=== PATIENT | male | born 1965 | race Caucasian/White ===

== ENCOUNTER 2017-04-10 15:07 | Inpatient (IN) | payer OTHER ==
[~2017-04-10] VITALS: Ht 195.6 cm; Wt 111.8 kg
[~2017-04-10 15:07] MED LIST: ACET-1757 PO; AMIT1TAB PO; AMLO10TA2 PO; AMLO5TAB4 PO; CHLO25CA9 PO; CLON-365 PO; CLON0.1T PO; FOLI-17 PO; GABA300C10 PO; GABA800T2 PO; HYDR-3341 PO; HYDR12.547 PO; IRBE150T25 PO; LOSA50TA2 PO; MAGN400T26 PO; MAGN400T7 PO; METO25TA35 PO; METO50TA82 PO; MULT-6 PO; OLME1TAB PO; OLME20TA PO; OLME5TAB4 PO; OMEP40CA6 PO; QUET100T4 PO; QUET25TA5 PO; SUCR1TAB26 PO; THIA100T10 PO; TRAZ100T15 PO; TRAZ150T68 PO; TRIA1TAB3 PO; ZIPR20CA2 PO
[2017-04-10] MEDS ORDERED: SODIUM CHLORIDE FLUSH 10ML SYR IVF ONE (15:30)
[2017-04-10] MEDS ORDERED: ONDANSETRON 2MG/ML, 2ML IVPush ONE (15:30)
[2017-04-10] MEDS ORDERED: SODIUM CHLORIDE 0.9% 1,000ML IVBOLUS ONE ×2 (15:30→17:30)
[2017-04-10] MEDS ORDERED: ONDANSETRON 2MG/ML, 2ML ONE (15:43)
[2017-04-10 16:00] LABS: BLOOD UREA NITROGEN 17 mg/dL (7-18)
[2017-04-10 16:03] LABS: ASPARTATE AMINO TRANSFERASE 41 U/L (15-37)
[2017-04-10] MEDS ORDERED: LORazepam 2 MG/ML, 1ML ONE ×3 (16:07→19:17)
[2017-04-10] MEDS: LORazepam 2 MG/ML, 1ML IVPush PRN ×5 (16:09→20:05)
[2017-04-10] MEDS ORDERED: CHLORDIAZEPOXIDE 25 MG CAPSULE PO ONE (16:30)
[2017-04-10] MEDS ORDERED: MAGNESIUM SULFATE 1 GM, THIAMINE 100 MG, FOLIC ACID 1 MG, MVI ADULT 10 ML in SODIUM CHL... IV ONE (19:00)
[2017-04-10] MEDS ORDERED: BISACODYL 10 MG SUPP PR PRN (19:30)
[2017-04-10] MEDS ORDERED: CHLORDIAZEPOXIDE 25 MG CAPSULE PO PRN (19:30)
[2017-04-10] MEDS ORDERED: POLYETHYLENE GLYCOL 17 GM PACKET PO PRN (19:30)
[2017-04-10] MEDS ORDERED: ONDANSETRON 2MG/ML, 2ML IVPush PRN (19:30)
[2017-04-10] MEDS ORDERED: ACETAMINOPHEN 325 MG TABLET PO PRN (19:30)
[2017-04-10 20:00] VITALS: BP 168/92
[2017-04-10] MEDS: GABAPENTIN 400 MG CAPSULE PO SCH (21:49)
[2017-04-10] MEDS: TRAZODONE 100MG TABLET PO SCH (21:49)
[2017-04-10] MEDS: OMEPRAZOLE 20 MG CAPSULE.DR PO SCH (21:49)
[2017-04-10] MEDS: HEPARIN 5,000 UNITS/ML, 1ML SQ SCH (21:49)
[2017-04-11 02:21] VITALS: BP 148/89
[2017-04-11] MEDS: SODIUM CHLORIDE 0.9% 1,000 ML IV SCH ×2 (03:56→16:34)
[2017-04-11] MEDS: HEPARIN 5,000 UNITS/ML, 1ML SQ SCH ×3 (03:56→19:47)
[2017-04-11] MEDS: LORazepam 2 MG/ML, 1ML IVPush PRN ×6 (05:39→23:03)
[2017-04-11] MEDS: GABAPENTIN 400 MG CAPSULE PO SCH ×4 (05:39→21:53)
[2017-04-11 05:58] LABS: ASPARTATE AMINO TRANSFERASE 35 U/L (15-37); BLOOD UREA NITROGEN 17 mg/dL (7-18)
[2017-04-11 07:33] VITALS: BP 153/109
[2017-04-11] MEDS: MULTIVITAMIN 1 TABLET PO SCH (08:58)
[2017-04-11] MEDS: OMEPRAZOLE 20 MG CAPSULE.DR PO SCH ×2 (08:58→17:01)
[2017-04-11] MEDS: FOLIC ACID 1 MG TABLET PO SCH (08:58)
[2017-04-11] MEDS: THIAMINE 100MG TABLET PO SCH (08:58)
[2017-04-11] MEDS: TRIAMTERENE-HCTZ 37.5/25 MG TABLET PO SCH (08:58)
[2017-04-11] MEDS: VALSARTAN 160 MG TABLET PO SCH (08:58)
[2017-04-11] MEDS: SENNA/DOCUSATE TABLET PO SCH (08:59)
[2017-04-11] MEDS ORDERED: LABETALOL 5MG/ML, 20ML IVPush PRN (10:00)
[2017-04-11 12:26] VITALS: BP 152/109
[2017-04-11] MEDS: BACLOFEN 10 MG TABLET PO SCH ×2 (16:34→21:54)
[2017-04-11 18:36] VITALS: BP 157/97
[2017-04-11] MEDS ORDERED: QUETIAPINE 25MG TABLET PO SCH (21:00)
[2017-04-11] MEDS: TRAZODONE 100MG TABLET PO SCH (21:54)
[2017-04-12] MEDS: SODIUM CHLORIDE 0.9% 1,000 ML IV SCH (01:51)
[2017-04-12 02:13] VITALS: BP 155/91
[2017-04-12] MEDS: LORazepam 2 MG/ML, 1ML IVPush PRN ×2 (03:04→06:09)
[2017-04-12] MEDS: HEPARIN 5,000 UNITS/ML, 1ML SQ SCH (03:04)
[2017-04-12] MEDS: GABAPENTIN 400 MG CAPSULE PO SCH (06:09)
[2017-04-12 08:16] VITALS: BP 161/108
[2017-04-12] MEDS: BACLOFEN 10 MG TABLET PO SCH (09:13)
[2017-04-12] MEDS: THIAMINE 100MG TABLET PO SCH (09:14)
[2017-04-12] MEDS: MULTIVITAMIN 1 TABLET PO SCH (09:14)
[2017-04-12] MEDS: TRIAMTERENE-HCTZ 37.5/25 MG TABLET PO SCH (09:14)
[2017-04-12] MEDS: FOLIC ACID 1 MG TABLET PO SCH (09:14)
[2017-04-12] MEDS: VALSARTAN 160 MG TABLET PO SCH (09:14)
[2017-04-12] MEDS: OMEPRAZOLE 20 MG CAPSULE.DR PO SCH (09:14)
[2017-04-12] MEDS: SENNA/DOCUSATE TABLET PO SCH (09:14)
== END 2017-04-12 11:45 | disposition home or self-care (01) | DRG 897 ==
LOC: ED 18:30 → EDIP 18:42 → ED 18:45 → 4WST 19:45 → DCLOUNGE 04-12 10:13
PROVIDERS: ADMIT Internal Medicine; ATTEND Internal Medicine
DX: F10.239 Alcohol dependence with withdrawal, unspecified (principal); I10 Essential (primary) hypertension; K21.9 Gastro-esophageal reflux disease without esophagitis; D75.89 Other specified diseases of blood and blood-forming organs; F32.9 Major depressive disorder, single episode, unspecified; Z63.8 Other specified problems related to primary support group; Z80.9 Family history of malignant neoplasm, unspecified; Z88.8 Allergy status to other drugs, medicaments and biological substances
CPT/HCPCS: 36415; 80053; 82607; 82746; 85025; 93005; 96361; 96374; J1644; J2405; J3411; J3475; J2060; J7030

== ENCOUNTER 2017-04-17 11:07 | Emergency (ER) | payer OTHER ==
[~2017-04-17] VITALS: Ht 190.5 cm; Wt 105.0 kg
[2017-04-17] MEDS ORDERED: THIAMINE IVPB ONE (12:30)
[2017-04-17] MEDS ORDERED: SODIUM CHLORIDE FLUSH 10ML SYR IVF ONE (12:30)
[2017-04-17] MEDS ORDERED: SODIUM CHLORIDE 0.9% IVPB ONE (12:30)
[2017-04-17] MEDS ORDERED: SODIUM CHLORIDE 0.9% 1,000ML IVBOLUS ONE (12:30)
[2017-04-17] MEDS ORDERED: FOLIC ACID 1 MG in DEXTROSE 5% 50 ML IV ONE (12:30)
[2017-04-17] MEDS ORDERED: FOLIC ACID IVPB ONE (12:30)
[2017-04-17 13:04] LABS: ASPARTATE AMINO TRANSFERASE 312 U/L (15-37); BLOOD UREA NITROGEN 28 mg/dL (7-18)
[2017-04-17 13:28] VITALS: BP 132/92
[2017-04-17] MEDS ORDERED: LORazepam 2 MG/ML, 1ML ONE (13:43)
[2017-04-17] MEDS ORDERED: LORazepam 2 MG/ML, 1ML IVPush ONE (14:00)
== END 2017-04-17 14:35 | disposition home or self-care (01) ==
LOC: ED 14:29
DX: F10.220 Alcohol dependence with intoxication, uncomplicated (principal); K21.9 Gastro-esophageal reflux disease without esophagitis; E11.9 Type 2 diabetes mellitus without complications; I10 Essential (primary) hypertension
CPT/HCPCS: 36415; 80053; 80307; 82140; 85025; 96365; 96366; 96375; 99285; J2060; J3411; J7030

== ENCOUNTER 2017-04-18 12:48 | Emergency (ER) | payer OTHER ==
[~2017-04-18] VITALS: Ht 193 cm; Wt 113.6 kg
[2017-04-18] MEDS ORDERED: SODIUM CHLORIDE FLUSH 10ML SYR IVF ONE (13:30)
[2017-04-18] MEDS ORDERED: SODIUM CHLORIDE 0.9% 1,000ML IVBOLUS ONE ×2 (13:30)
[2017-04-18] MEDS ORDERED: THIAMINE 100 MG/ML, 2ML IM ONE (13:30)
[2017-04-18] MEDS ORDERED: ONDANSETRON 2MG/ML, 2ML IVPush ONE (13:30)
[2017-04-18] MEDS ORDERED: CHLORDIAZEPOXIDE 25 MG CAPSULE PO PRN (13:30)
[2017-04-18] MEDS ORDERED: ONDANSETRON 2MG/ML, 2ML ONE (13:50)
[2017-04-18 14:09] LABS: ASPARTATE AMINO TRANSFERASE 230 U/L (15-37); BLOOD UREA NITROGEN 17 mg/dL (7-18)
[2017-04-18] MEDS ORDERED: THIAMINE 100MG TABLET ONE (14:23)
[2017-04-18] MEDS ORDERED: THIAMINE 100 MG/ML, 2ML ONE (14:29)
[2017-04-18 15:31] VITALS: BP 146/95
== END 2017-04-18 16:16 | disposition home or self-care (01) ==
LOC: ED 13:31
DX: F10.129 Alcohol abuse with intoxication, unspecified (principal); E87.6 Hypokalemia; E11.9 Type 2 diabetes mellitus without complications; K21.9 Gastro-esophageal reflux disease without esophagitis; I10 Essential (primary) hypertension
CPT/HCPCS: 36415; 80053; 80307; 85025; 96361; 96372; 96374; 99285; J2405; J3411; J7030

== ENCOUNTER 2017-04-18 21:08 | Emergency (ER) | payer OTHER ==
[~2017-04-18] VITALS: Ht 190.5 cm; Wt 105.0 kg
[2017-04-18] MEDS ORDERED: SODIUM CHLORIDE 0.9% 1,000ML IVBOLUS ONE (21:30)
[2017-04-18 23:46] VITALS: BP 118/72
== END 2017-04-19 00:27 | disposition home or self-care (01) ==
LOC: ED 23:59
DX: F10.120 Alcohol abuse with intoxication, uncomplicated (principal); K21.9 Gastro-esophageal reflux disease without esophagitis; I10 Essential (primary) hypertension
CPT/HCPCS: 96360; 99284; J7030

== ENCOUNTER 2017-06-10 14:42 | Emergency (ER) | payer OTHER ==
[~2017-06-10] VITALS: Ht 190.5 cm; Wt 102.0 kg
[2017-06-10 14:48] VITALS: BP 178/110
== END 2017-06-10 17:04 | disposition home or self-care (01) ==
LOC: ED 16:58
DX: F10.220 Alcohol dependence with intoxication, uncomplicated (principal); E11.9 Type 2 diabetes mellitus without complications; K21.9 Gastro-esophageal reflux disease without esophagitis; I10 Essential (primary) hypertension
CPT/HCPCS: 99281

== ENCOUNTER 2017-08-14 17:33 | Observation (INO) | payer OTHER ==
[~2017-08-14] VITALS: Ht 190.5 cm; Wt 102.8 kg
[~2017-08-14 17:33] MED LIST changes: -OLME1TAB PO; +OLME1TAB22 PO; -OLME20TA PO; +OLME20TA19 PO; -SUCR1TAB26 PO; +SUCR1TAB33 PO; +TRAZ150T62 PO; -TRAZ150T68 PO
[2017-08-14 17:35] VITALS: BP 164/114
[2017-08-14] MEDS ORDERED: BUSP10TA PO (18:13)
[2017-08-14] MEDS ORDERED: HYDR50TA3 PO (18:13)
[2017-08-14] MEDS ORDERED: BUPR150T8 PO (18:13)
[2017-08-14] MEDS ORDERED: QUET100T4 PO (18:13)
[2017-08-14 18:39] VITALS: BP 153/97
[2017-08-14] MEDS ORDERED: ONDANSETRON ODT 4 MG PO PRN (19:30)
[2017-08-14] MEDS ORDERED: ENALAPRILAT 1.25 MG/ML, 2ML IVPush PRN (19:30)
[2017-08-14] MEDS ORDERED: ACETAMINOPHEN 325 MG TABLET PO PRN (19:30)
[2017-08-14] MEDS ORDERED: DOCUSATE 100 MG CAPSULE PO PRN (19:30)
[2017-08-14] MEDS ORDERED: ENOXAPARIN 40 MG/0.4 ML SQ SCH (20:00)
[2017-08-14] MEDS: TEMAZEPAM 15 MG CAPSULE PO PRN ×2 (22:15→23:58)
[2017-08-15 00:41] VITALS: BP 157/95
[2017-08-15 05:18] LABS: HEMATOCRIT 42.5 % (39.2-51.8); WHITE BLOOD COUNT 8.8 x10^3/uL (3.4-10)
[2017-08-15 05:26] LABS: BLOOD UREA NITROGEN 17 mg/dL (7-18)
[2017-08-15 07:16] VITALS: BP 165/93
[2017-08-15] MEDS ORDERED: METOPROLOL TARTRATE 25 MG TABLET PO SCH (08:00)
[2017-08-15] MEDS ORDERED: IRBESARTAN 150 MG TABLET PO SCH (09:00)
[2017-08-15] MEDS ORDERED: IRBE150T49 PO (13:25)
[2017-08-15] MEDS ORDERED: METO25TA35 PO (13:25)
[2017-08-15 14:20] VITALS: BP 148/99
== END 2017-08-15 16:00 | disposition home or self-care (01) ==
LOC: INTOOBSV 17:33 → 5SO 17:33
PROVIDERS: ADMIT Hospitalist; ATTEND Family Medicine
DX: I47.2 Ventricular tachycardia (principal); I10 Essential (primary) hypertension; F10.231 Alcohol dependence with withdrawal delirium; D69.59 Other secondary thrombocytopenia; K21.9 Gastro-esophageal reflux disease without esophagitis; F33.2 Major depressive disorder, recurrent severe without psychotic features; R45.851 Suicidal ideations
CPT/HCPCS: 36415; 80048; 83735; 85025; 87324; G0378

== ENCOUNTER 2017-08-22 02:15 | Inpatient (IN) | payer OTHER ==
[~2017-08-22] VITALS: Ht 180.3 cm; Wt 104.8 kg
[~2017-08-22 02:15] MED LIST changes: +BUPR150T8 PO; +BUSP10TA PO; +HYDR50TA3 PO; +IRBE150T49 PO
[2017-08-22] MEDS ORDERED: SODIUM CHLORIDE 0.9% 1,000ML IVBOLUS ONE (02:30)
[2017-08-22] MEDS ORDERED: ACETAMINOPHEN 325 MG TABLET PO ONE (02:30)
[2017-08-22] MEDS ORDERED: ACETAMINOPHEN 500 MG TABLET ONE (02:37)
[2017-08-22 02:41] LABS: HEMATOCRIT 50.8 % (39.2-51.8); HEMOGLOBIN 17.5 g/dL (13.7-18.0); WHITE BLOOD COUNT 7.5 x10^3/uL (3.4-10)
[2017-08-22 02:51] LABS: BLOOD UREA NITROGEN 15 mg/dL (7-18)
[2017-08-22] MEDS ORDERED: LORazepam 2 MG/ML, 1ML ONE (03:53)
[2017-08-22] MEDS ORDERED: LORazepam 2 MG/ML, 1ML IVPush ONE (04:00)
[2017-08-22] MEDS ORDERED: FOLIC ACID 1 MG TABLET PO ONE (05:00)
[2017-08-22] MEDS ORDERED: THIAMINE 100 MG/ML, 2ML IM SCH (05:00)
[2017-08-22] MEDS ORDERED: THIAMINE 100 MG/ML, 2ML ONE (05:01)
[2017-08-22] MEDS ORDERED: DOCUSATE 100 MG CAPSULE PO PRN (06:00)
[2017-08-22] MEDS ORDERED: ONDANSETRON ODT 4 MG PO PRN (06:00)
[2017-08-22] MEDS ORDERED: GLUCAGON 1 MG IM PRN (06:00)
[2017-08-22] MEDS ORDERED: PROMETHAZINE 25 MG/ML, 1ML IM PRN (06:00)
[2017-08-22] MEDS ORDERED: BISACODYL 10 MG SUPP PR PRN (06:00)
[2017-08-22] MEDS ORDERED: DEXTROSE 4 GM TAB.CHEW PO PRN (06:00)
[2017-08-22] MEDS ORDERED: DEXTROSE 50%, 50ML SYRINGE IVPush PRN (06:00)
[2017-08-22] MEDS ORDERED: LORazepam 1MG TABLET PO PRN ×3 (06:00)
[2017-08-22] MEDS ORDERED: POLYETHYLENE GLYCOL 17 GM PACKET PO PRN (06:00)
[2017-08-22] MEDS ORDERED: LORazepam 0.5MG TABLET PO PRN (06:00)
[2017-08-22] MEDS ORDERED: LORazepam 2 MG/ML, 1ML IV PRN ×3 (06:00)
[2017-08-22] MEDS ORDERED: ONDANSETRON 2MG/ML, 2ML IVPush PRN (06:00)
[2017-08-22 06:15] VITALS: BP 133/90
[2017-08-22] MEDS: SODIUM CHLORIDE 0.9% 1,000 ML IV SCH ×3 (06:21→22:00)
[2017-08-22] MEDS: THIAMINE 100 MG in SODIUM CHLORIDE 0.9% 50 ML IV SCH (06:22)
[2017-08-22] MEDS: BUSPIRONE 10 MG TABLET PO SCH ×4 (06:37→19:46)
[2017-08-22] MEDS: ENOXAPARIN 40 MG/0.4 ML SQ SCH (06:38)
[2017-08-22] MEDS: CHLORDIAZEPOXIDE 25 MG CAPSULE PO SCH ×4 (06:38→19:46)
[2017-08-22] MEDS: INSULIN ASPART 100 UNITS/ML, PEN SQ-INSULIN SCH ×4 (07:00→20:34)
[2017-08-22] MEDS: LORazepam 1MG TABLET PO PRN ×4 (08:56→19:48)
[2017-08-22] MEDS: BUPROPION SR 150 MG TABLET PO SCH (08:57)
[2017-08-22] MEDS: METOPROLOL TARTRATE 25 MG TABLET PO SCH ×2 (08:57→19:46)
[2017-08-22] MEDS: IRBESARTAN 150 MG TABLET PO SCH (08:57)
[2017-08-22] MEDS: MULTIVITAMIN 1 TABLET PO SCH (08:57)
[2017-08-22] MEDS: SODIUM CHLORIDE FLUSH 10ML SYR IVF SCH ×2 (08:58→19:44)
[2017-08-22] MEDS: FOLIC ACID 1 MG TABLET PO SCH (08:58)
[2017-08-22 15:51] VITALS: BP 137/83
[2017-08-22 18:35] VITALS: BP 160/90
[2017-08-22] MEDS: QUETIAPINE 25MG TABLET PO SCH (19:45)
[2017-08-22] MEDS: FAMOTIDINE 20 MG TABLET PO SCH (19:46)
[2017-08-22] MEDS: TRAZODONE 100MG TABLET PO SCH (19:46)
[2017-08-23 01:21] VITALS: BP 169/94
[2017-08-23] MEDS: LORazepam 2 MG/ML, 1ML IV PRN ×9 (01:34→13:29)
[2017-08-23] MEDS: SODIUM CHLORIDE 0.9% 1,000 ML IV SCH (04:40)
[2017-08-23] MEDS: THIAMINE 100 MG in SODIUM CHLORIDE 0.9% 50 ML IV SCH (05:20)
[2017-08-23] MEDS: ENOXAPARIN 40 MG/0.4 ML SQ SCH (05:23)
[2017-08-23] MEDS: BUSPIRONE 10 MG TABLET PO SCH ×4 (05:23→20:09)
[2017-08-23] MEDS: LORazepam 1MG TABLET PO PRN (05:26)
[2017-08-23] MEDS ORDERED: CHLORDIAZEPOXIDE 25 MG CAPSULE PO PRN (05:30)
[2017-08-23 05:39] LABS: HEMATOCRIT 39.3 % (39.2-51.8); HEMOGLOBIN 13.7 g/dL (13.7-18.0); WHITE BLOOD COUNT 3.7 x10^3/uL (3.4-10)
[2017-08-23 06:02] LABS: ASPARTATE AMINO TRANSFERASE 35 U/L (15-37); BLOOD UREA NITROGEN 18 mg/dL (7-18)
[2017-08-23 07:31] VITALS: BP 176/109
[2017-08-23] MEDS ORDERED: hydrALAzine 20 MG/ML, 1ML IV PRN (08:00)
[2017-08-23] MEDS: FAMOTIDINE 20 MG TABLET PO SCH (08:01)
[2017-08-23] MEDS: IRBESARTAN 150 MG TABLET PO SCH (08:01)
[2017-08-23] MEDS: METOPROLOL TARTRATE 25 MG TABLET PO SCH ×2 (08:01→20:09)
[2017-08-23] MEDS: MULTIVITAMIN 1 TABLET PO SCH (08:01)
[2017-08-23] MEDS: BUPROPION SR 150 MG TABLET PO SCH (08:02)
[2017-08-23] MEDS: FOLIC ACID 1 MG TABLET PO SCH (08:03)
[2017-08-23] MEDS: SODIUM CHLORIDE FLUSH 10ML SYR IVF SCH ×2 (08:19→21:00)
[2017-08-23] MEDS ORDERED: MAGNESIUM SULFATE PMX 2GM/50ML 50 ML IV ONE (08:30)
[2017-08-23] MEDS ORDERED: POTASSIUM PHOSPHATE 22 MEQ in SODIUM CHLORIDE 0.9% 500 ML IV ONE (09:00)
[2017-08-23] MEDS: CHLORDIAZEPOXIDE 25 MG CAPSULE PO SCH ×3 (11:20→20:09)
[2017-08-23 13:30] VITALS: BP 124/105
[2017-08-23] MEDS: DIAZEPAM 5 MG/ML, 10ML VIAL IV SCH ×2 (15:56→19:38)
[2017-08-23] MEDS ORDERED: DIAZEPAM 5 MG/ML, 2ML IV SCH (16:00)
[2017-08-23] MEDS: ZIPRASIDONE 20 MG INJ IM PRN ×2 (16:01→18:08)
[2017-08-23] MEDS: GABAPENTIN 400 MG CAPSULE PO SCH ×2 (16:46→20:09)
[2017-08-23] MEDS: TRAZODONE 100MG TABLET PO SCH (20:09)
[2017-08-23] MEDS: QUETIAPINE 25MG TABLET PO SCH (20:09)
[2017-08-24 04:13] LABS: ABG COLLECTION SITE LEFT RADIAL; COLLATERAL CIRCULATION TESTING NORMAL
[2017-08-24 04:30] VITALS: BP 144/92
[2017-08-24] MEDS: DIAZEPAM 5 MG/ML, 10ML VIAL IV SCH ×2 (04:46)
[2017-08-24 04:54] LABS: ASPARTATE AMINO TRANSFERASE 41 U/L (15-37); BLOOD UREA NITROGEN 13 mg/dL (7-18)
[2017-08-24] MEDS: ENOXAPARIN 40 MG/0.4 ML SQ SCH (05:48)
[2017-08-24] MEDS: BUSPIRONE 10 MG TABLET PO SCH ×4 (05:48→20:28)
[2017-08-24] MEDS: CHLORDIAZEPOXIDE 25 MG CAPSULE PO SCH ×4 (05:48→20:28)
[2017-08-24] MEDS ORDERED: SODIUM CHLORIDE 0.9% 1,000 ML IV SCH (05:57)
[2017-08-24] MEDS: BUPROPION SR 150 MG TABLET PO SCH (09:00)
[2017-08-24] MEDS: METOPROLOL TARTRATE 25 MG TABLET PO SCH ×2 (09:35→20:29)
[2017-08-24] MEDS: FOLIC ACID 1 MG TABLET PO SCH (09:35)
[2017-08-24] MEDS: IRBESARTAN 150 MG TABLET PO SCH (09:35)
[2017-08-24] MEDS: GABAPENTIN 400 MG CAPSULE PO SCH ×3 (09:36→20:29)
[2017-08-24] MEDS: MULTIVITAMIN 1 TABLET PO SCH (09:36)
[2017-08-24] MEDS: SODIUM CHLORIDE FLUSH 10ML SYR IVF SCH ×2 (09:37→20:28)
[2017-08-24] MEDS ORDERED: DIAZEPAM 5 MG/ML, 10ML VIAL IV SCH (10:00)
[2017-08-24] MEDS ORDERED: DIAZEPAM 5 MG/ML, 10ML VIAL IV PRN (16:00)
[2017-08-24] MEDS: TRAZODONE 100MG TABLET PO SCH (20:28)
[2017-08-24] MEDS: QUETIAPINE 25MG TABLET PO SCH (20:29)
[2017-08-25 05:00] VITALS: BP 110/70
[2017-08-25] MEDS: ENOXAPARIN 40 MG/0.4 ML SQ SCH (05:16)
[2017-08-25] MEDS: BUSPIRONE 10 MG TABLET PO SCH ×4 (05:16→21:36)
[2017-08-25] MEDS: FOLIC ACID 1 MG TABLET PO SCH (07:54)
[2017-08-25] MEDS: MULTIVITAMIN 1 TABLET PO SCH (07:54)
[2017-08-25] MEDS: GABAPENTIN 400 MG CAPSULE PO SCH ×3 (07:54→21:36)
[2017-08-25] MEDS: CHLORDIAZEPOXIDE 10 MG CAPSULE PO SCH ×4 (08:00→21:36)
[2017-08-25] MEDS: POTASSIUM CHLORIDE 20 MEQ, MAGNESIUM SULFATE 1 GM, THIAMINE 100 MG, FOLIC ACID 1 MG, MV... IV SCH (08:00)
[2017-08-25] MEDS: SODIUM CHLORIDE FLUSH 10ML SYR IVF SCH ×2 (08:02→21:00)
[2017-08-25] MEDS: BUPROPION SR 150 MG TABLET PO SCH (08:03)
[2017-08-25 18:24] VITALS: BP 142/92
[2017-08-25 19:45] VITALS: BP 143/99
[2017-08-25] MEDS: QUETIAPINE 25MG TABLET PO SCH (21:37)
[2017-08-26 01:26] VITALS: BP 149/84
[2017-08-26] MEDS: BUSPIRONE 10 MG TABLET PO SCH ×4 (05:40→22:07)
[2017-08-26] MEDS: ENOXAPARIN 40 MG/0.4 ML SQ SCH (05:42)
[2017-08-26 06:59] VITALS: BP 140/90
[2017-08-26] MEDS: POTASSIUM CHLORIDE 20 MEQ, MAGNESIUM SULFATE 1 GM, THIAMINE 100 MG, FOLIC ACID 1 MG, MV... IV SCH (08:00)
[2017-08-26] MEDS: MULTIVITAMIN 1 TABLET PO SCH ×2 (09:00→09:27)
[2017-08-26] MEDS: IRBESARTAN 150 MG TABLET PO SCH ×2 (09:26→20:50)
[2017-08-26] MEDS: GABAPENTIN 400 MG CAPSULE PO SCH ×3 (09:27→22:07)
[2017-08-26] MEDS: THIAMINE 100MG TABLET PO SCH (09:27)
[2017-08-26] MEDS: METOPROLOL TARTRATE 25 MG TABLET PO SCH ×2 (09:27→18:02)
[2017-08-26] MEDS: FOLIC ACID 1 MG TABLET PO SCH (09:28)
[2017-08-26] MEDS: SODIUM CHLORIDE FLUSH 10ML SYR IVF SCH ×2 (09:28→22:11)
[2017-08-26] MEDS: BUPROPION SR 150 MG TABLET PO SCH (09:29)
[2017-08-26 09:56] VITALS: BP 137/74
[2017-08-26 14:20] VITALS: BP 145/95
[2017-08-26] MEDS: OMEPRAZOLE 20 MG CAPSULE.DR PO SCH (19:39)
[2017-08-26 20:16] VITALS: BP 167/100
[2017-08-26] MEDS ORDERED: MAGNESIUM HYDROXIDE 8%, 30ML UDC PO PRN (21:00)
[2017-08-26] MEDS: QUETIAPINE 25MG TABLET PO SCH (22:07)
[2017-08-27 04:08] VITALS: BP 168/102
[2017-08-27] MEDS: BUSPIRONE 10 MG TABLET PO SCH ×2 (06:47→10:42)
[2017-08-27] MEDS: METOPROLOL TARTRATE 25 MG TABLET PO SCH (06:47)
[2017-08-27] MEDS: ENOXAPARIN 40 MG/0.4 ML SQ SCH (06:49)
[2017-08-27 07:00] VITALS: BP 146/96
[2017-08-27] MEDS: OMEPRAZOLE 20 MG CAPSULE.DR PO SCH (08:48)
[2017-08-27] MEDS: THIAMINE 100MG TABLET PO SCH (08:49)
[2017-08-27] MEDS: MULTIVITAMIN 1 TABLET PO SCH ×2 (08:49)
[2017-08-27] MEDS: IRBESARTAN 150 MG TABLET PO SCH (08:49)
[2017-08-27] MEDS: FOLIC ACID 1 MG TABLET PO SCH (08:49)
[2017-08-27] MEDS: GABAPENTIN 400 MG CAPSULE PO SCH (08:49)
[2017-08-27] MEDS: BUPROPION SR 150 MG TABLET PO SCH (08:49)
[2017-08-27] MEDS: SODIUM CHLORIDE FLUSH 10ML SYR IVF SCH (09:00)
[2017-08-27] MEDS ORDERED: METO25TA35 PO (09:33)
[2017-08-27 13:11] VITALS: BP 138/90
== END 2017-08-27 16:29 | disposition home or self-care (01) | DRG 896 ==
LOC: ED 02:45 → EDIP 04:48 → 4WST 05:33 → CCU 08-23 14:49 → 4NOR 08-25 11:28 → DCLOUNGE 08-27 16:21
PROVIDERS: ADMIT Internal Medicine; ATTEND Internal Medicine
DX: F10.231 Alcohol dependence with withdrawal delirium (principal); R40.20 Unspecified coma; S06.0X9A Concussion with loss of consciousness of unspecified duration, initial encounter; I50.9 Heart failure, unspecified; I11.0 Hypertensive heart disease with heart failure; R56.9 Unspecified convulsions; W01.0XXA Fall on same level from slipping, tripping and stumbling without subsequent striking against object, initial encounter; F10.229 Alcohol dependence with intoxication, unspecified; Y90.9 Presence of alcohol in blood, level not specified; F32.9 Major depressive disorder, single episode, unspecified; F41.9 Anxiety disorder, unspecified; K21.9 Gastro-esophageal reflux disease without esophagitis; Y92.000 Kitchen of unspecified non-institutional (private) residence as the place of occurrence of the external cause; Z79.899 Other long term (current) drug therapy; Z86.79 Personal history of other diseases of the circulatory system; Z88.4 Allergy status to anesthetic agent
CPT/HCPCS: 36415; 36600; 70450; 72125; 80048; 80053; 80307; 82140; 82803; 82962; 83735; 84100; 85025; 87081; 96374; J1650; J2405; J3360; J3411; J3475; J3480; J3486; G0479; J2060; J7030; J7040

== ENCOUNTER 2017-09-26 16:11 | Inpatient (IN) | payer OTHER ==
[~2017-09-26] VITALS: Ht 190.5 cm; Wt 110.7 kg
[~2017-09-26 16:11] MED LIST changes: +HYDR25TA6 PO
[2017-09-26] MEDS ORDERED: LORazepam 2 MG/ML, 1ML ONE ×3 (16:37→19:34)
[2017-09-26] MEDS ORDERED: PANTOPRAZOLE 80 MG in SODIUM CHLORIDE 0.9% 50 ML IVPB ONE (16:40)
[2017-09-26] MEDS ORDERED: SODIUM CHLORIDE 0.9% 1,000 ML IV ONE (16:40)
[2017-09-26] MEDS ORDERED: PANTOPRAZOLE 80 MG in SODIUM CHLORIDE 0.9% 100 ML IV SCH (16:40)
[2017-09-26] MEDS: LORazepam 2 MG/ML, 1ML IVPush PRN ×3 (16:48→19:37)
[2017-09-26] MEDS ORDERED: THIAMINE 100 MG in DEXTROSE 5% 50 ML IVPB ONE (17:00)
[2017-09-26] MEDS ORDERED: ONDANSETRON 2MG/ML, 2ML IVPush ONE (17:00)
[2017-09-26] MEDS ORDERED: SODIUM CHLORIDE 0.9% 1,000ML IVBOLUS ONE (17:00)
[2017-09-26] MEDS ORDERED: THIAMINE 100 MG in SODIUM CHLORIDE 0.9% 50 ML IVPB ONE (17:00)
[2017-09-26] MEDS ORDERED: SODIUM CHLORIDE FLUSH 10ML SYR IVF ONE (17:00)
[2017-09-26 17:25] LABS: HEMATOCRIT 46.5 % (39.2-51.8); WHITE BLOOD COUNT 7.6 x10^3/uL (3.4-10)
[2017-09-26 17:41] LABS: ASPARTATE AMINO TRANSFERASE 133 U/L (15-37); BLOOD UREA NITROGEN 14 mg/dL (7-18)
[2017-09-26] MEDS ORDERED: POTASSIUM CHLORIDE 20 MEQ, MVI ADULT 10 ML, FOLIC ACID 1 MG, MAGNESIUM SULFATE 2 GM in ... IV SCH (18:20)
[2017-09-26] MEDS ORDERED: PROMETHAZINE 12.5 MG SUPP PR PRN (18:30)
[2017-09-26] MEDS ORDERED: LORazepam 2 MG/ML, 1ML IV PRN (18:30)
[2017-09-26] MEDS ORDERED: LABETALOL 5MG/ML, 20ML IV PRN (18:30)
[2017-09-26] MEDS ORDERED: ONDANSETRON 2MG/ML, 2ML IV PRN (18:30)
[2017-09-26] MEDS ORDERED: ONDANSETRON 2MG/ML, 2ML ONE (19:33)
[2017-09-26 20:45] VITALS: BP 179/95
[2017-09-26] MEDS: INSULIN ASPART 100 UNITS/ML, PEN SQ-INSULIN SCH (21:00)
[2017-09-26] MEDS ORDERED: DIAZEPAM 5 MG/ML, 10ML VIAL IV ONE (21:00)
[2017-09-26] MEDS ORDERED: DIAZEPAM 5 MG/ML, 2ML IV ONE (21:00)
[2017-09-26] MEDS: PANTOPRAZOLE 80 MG in SODIUM CHLORIDE 0.9% 100 ML IV SCH (21:43)
[2017-09-26] MEDS: LORazepam 2 MG/ML, 1ML IV PRN (22:26)
[2017-09-26] MEDS: POTASSIUM CHLORIDE 20 MEQ, MVI ADULT 10 ML, FOLIC ACID 1 MG, MAGNESIUM SULFATE 2 GM in ... IV SCH (22:43)
[2017-09-26 22:55] LABS: HEMATOCRIT 41.5 % (39.2-51.8); HEMOGLOBIN 14.5 g/dL (13.7-18.0)
[2017-09-27] MEDS: LORazepam 2 MG/ML, 1ML IV PRN ×15 (00:06→22:33)
[2017-09-27 01:04] VITALS: BP 179/95
[2017-09-27 01:41] VITALS: BP 152/79
[2017-09-27 06:22] LABS: HEMATOCRIT 37.4 % (39.2-51.8); HEMOGLOBIN 13.1 g/dL (13.7-18.0); WHITE BLOOD COUNT 4.3 x10^3/uL (3.4-10)
[2017-09-27] MEDS: INSULIN ASPART 100 UNITS/ML, PEN SQ-INSULIN SCH ×4 (07:00→20:43)
[2017-09-27 07:19] LABS: ASPARTATE AMINO TRANSFERASE 95 U/L (15-37); BLOOD UREA NITROGEN 18 mg/dL (7-18)
[2017-09-27 08:11] VITALS: BP 154/100
[2017-09-27] MEDS: BACLOFEN 10 MG TABLET PO SCH ×2 (09:00→11:34)
[2017-09-27] MEDS: CHLORDIAZEPOXIDE 25 MG CAPSULE PO PRN (11:34)
[2017-09-27 12:33] VITALS: BP 185/92
[2017-09-27] MEDS: VALPROIC ACID 250 MG CAPSULE PO SCH ×3 (13:04→20:17)
[2017-09-27] MEDS: GABAPENTIN 400 MG CAPSULE PO SCH ×3 (13:04→20:17)
[2017-09-27] MEDS: PANTOPRAZOLE 80 MG in SODIUM CHLORIDE 0.9% 100 ML IV SCH (13:04)
[2017-09-27 14:09] VITALS: BP 168/98
[2017-09-27 20:28] VITALS: BP 168/100
[2017-09-27] MEDS: POTASSIUM CHLORIDE 20 MEQ, MVI ADULT 10 ML, FOLIC ACID 1 MG, MAGNESIUM SULFATE 2 GM in ... IV SCH (21:46)
[2017-09-28] MEDS: LORazepam 2 MG/ML, 1ML IV PRN ×7 (01:08→23:23)
[2017-09-28 01:45] VITALS: BP 154/98
[2017-09-28] MEDS: CHLORDIAZEPOXIDE 25 MG CAPSULE PO PRN ×4 (02:41→20:54)
[2017-09-28] MEDS: ALUMINUM/MAG/SIMETHICONE 30 ML UDC PO PRN ×2 (02:46→06:46)
[2017-09-28] MEDS: PANTOPRAZOLE 80 MG in SODIUM CHLORIDE 0.9% 100 ML IV SCH (02:58)
[2017-09-28 05:37] LABS: BLOOD UREA NITROGEN 18 mg/dL (7-18)
[2017-09-28] MEDS: INSULIN ASPART 100 UNITS/ML, PEN SQ-INSULIN SCH ×4 (07:00→20:55)
[2017-09-28 08:02] VITALS: BP 156/96
[2017-09-28] MEDS: VALPROIC ACID 250 MG CAPSULE PO SCH ×3 (08:48→20:54)
[2017-09-28] MEDS: GABAPENTIN 400 MG CAPSULE PO SCH ×3 (08:48→20:54)
[2017-09-28 09:58] LABS: BLOOD UREA NITROGEN 16 mg/dL (7-18)
[2017-09-28 10:01] LABS: ASPARTATE AMINO TRANSFERASE 68 U/L (15-37)
[2017-09-28] MEDS ORDERED: LABETALOL 5MG/ML, 20ML IV PRN (10:30)
[2017-09-28 12:42] VITALS: BP 175/102
[2017-09-28 13:28] VITALS: BP 164/97
[2017-09-28] MEDS ORDERED: ASA/APAP/ CAFFEINE TABLET PO PRN (16:30)
[2017-09-28 18:49] VITALS: BP 159/85
[2017-09-29 01:50] VITALS: BP 173/109
[2017-09-29] MEDS: CHLORDIAZEPOXIDE 25 MG CAPSULE PO PRN ×2 (02:27→08:19)
[2017-09-29] MEDS: LORazepam 2 MG/ML, 1ML IV PRN ×6 (04:39→14:11)
[2017-09-29 05:44] LABS: BLOOD UREA NITROGEN 16 mg/dL (7-18)
[2017-09-29 05:48] LABS: ASPARTATE AMINO TRANSFERASE 73 U/L (15-37)
[2017-09-29] MEDS: INSULIN ASPART 100 UNITS/ML, PEN SQ-INSULIN SCH ×2 (07:00→11:00)
[2017-09-29 08:03] VITALS: BP 178/100
[2017-09-29] MEDS: VALPROIC ACID 250 MG CAPSULE PO SCH (08:19)
[2017-09-29] MEDS: GABAPENTIN 400 MG CAPSULE PO SCH (08:19)
[2017-09-29] MEDS ORDERED: LORazepam 0.5MG TABLET PO PRN (13:00)
[2017-09-29] MEDS ORDERED: LORazepam 1MG TABLET PO PRN ×4 (13:00)
[2017-09-29 14:30] VITALS: BP 165/98
[2017-09-30] MEDS ORDERED: THIAMINE 100MG TABLET PO SCH (09:00)
[2017-09-30] MEDS ORDERED: FOLIC ACID 1 MG TABLET PO SCH (09:00)
[2017-09-30] MEDS ORDERED: MULTIVITAMIN 1 TABLET PO SCH (09:00)
== END 2017-09-29 15:30 | disposition left against medical advice (07) | DRG 392 ==
LOC: ED 18:20 → 4WST 18:21 → ED 19:07
PROVIDERS: ADMIT Hospitalist; ATTEND Hospitalist
DX: K29.20 Alcoholic gastritis without bleeding (principal); E11.40 Type 2 diabetes mellitus with diabetic neuropathy, unspecified; E87.2 Acidosis; F33.2 Major depressive disorder, recurrent severe without psychotic features; F10.239 Alcohol dependence with withdrawal, unspecified; K70.10 Alcoholic hepatitis without ascites; K21.9 Gastro-esophageal reflux disease without esophagitis; E87.6 Hypokalemia; R33.9 Retention of urine, unspecified; I10 Essential (primary) hypertension; Z53.21 Procedure and treatment not carried out due to patient leaving prior to being seen by health care provider; R15.9 Full incontinence of feces; R45.6 Violent behavior; R74.0 Nonspecific elevation of levels of transaminase and lactic acid dehydrogenase [LDH]; Z86.79 Personal history of other diseases of the circulatory system; Z91.5 Personal history of self-harm; Z88.4 Allergy status to anesthetic agent; Z79.899 Other long term (current) drug therapy; Z79.84 Long term (current) use of oral hypoglycemic drugs
CPT/HCPCS: 36415; 71010; 80048; 80053; 81001; 82040; 82962; 83605; 83690; 83735; 84100; 85014; 85018; 85025; 85610; 85730; 86850; 86900; 87086; 93005; J2405; J3360; J3411; J3475; J3480; J7042; C9113; J2060; J7030

== ENCOUNTER 2017-10-02 15:54 | Inpatient (IN) | payer OTHER ==
[~2017-10-02] VITALS: Ht 190.5 cm; Wt 102.5 kg
[2017-10-02] MEDS ORDERED: SODIUM CHLORIDE 0.9% 1,000ML IVBOLUS ONE (16:30)
[2017-10-02] MEDS ORDERED: DIPH,PERTUSS(ACELL),TET VAC/PF 0.5 ML IM-VACC ONE ×2 (16:30→18:05)
[2017-10-02] MEDS ORDERED: SODIUM CHLORIDE FLUSH 10ML SYR IVF ONE (16:30)
[2017-10-02] MEDS ORDERED: CHLORDIAZEPOXIDE 25 MG CAPSULE PO PRN ×3 (16:30→20:00)
[2017-10-02 16:46] LABS: HEMATOCRIT 41.2 % (39.2-51.8); HEMOGLOBIN 14.2 g/dL (13.7-18.0); WHITE BLOOD COUNT 6.6 x10^3/uL (3.4-10)
[2017-10-02 16:50] LABS: ASPARTATE AMINO TRANSFERASE 335 U/L (15-37); BLOOD UREA NITROGEN 15 mg/dL (7-18)
[2017-10-02] MEDS ORDERED: BACITRACIN ZINC OINT 500U/GM, 0.9 GM ONE (17:56)
[2017-10-02] MEDS ORDERED: LORazepam 2 MG/ML, 1ML ONE ×2 (17:56→18:27)
[2017-10-02] MEDS ORDERED: LORazepam 2 MG/ML, 1ML IVPush ONE ×2 (18:00→19:30)
[2017-10-02] MEDS ORDERED: ONDANSETRON 2MG/ML, 2ML ONE (19:09)
[2017-10-02] MEDS ORDERED: MAALOX/HYOSCYAMINE/LIDOCAINE 45 ML BTL ONE (19:09)
[2017-10-02] MEDS ORDERED: FAMOTIDINE 20 MG/2 ML ONE (19:09)
[2017-10-02] MEDS ORDERED: ONDANSETRON 2MG/ML, 2ML IVPush ONE (19:30)
[2017-10-02] MEDS ORDERED: FAMOTIDINE 20 MG/2 ML IVPush ONE (19:30)
[2017-10-02] MEDS ORDERED: MAALOX/HYOSCYAMINE/LIDOCAINE 45 ML BTL PO ONE (19:30)
[2017-10-02] MEDS ORDERED: DOCUSATE 100 MG CAPSULE PO PRN (20:00)
[2017-10-02] MEDS ORDERED: CHLORDIAZEPOXIDE 10 MG CAPSULE PO PRN (20:00)
[2017-10-02] MEDS ORDERED: ALUMINUM/MAG/SIMETHICONE 30 ML UDC PO PRN (20:00)
[2017-10-02] MEDS ORDERED: DIPHENHYDRAMINE 50 MG CAPSULE PO PRN (20:00)
[2017-10-02] MEDS ORDERED: POTASSIUM CHLORIDE 20 MEQ TAB.ER.PRT PO ONE (21:00)
[2017-10-02] MEDS: INSULIN ASPART 100 UNITS/ML, PEN SQ-INSULIN SCH (21:00)
[2017-10-02] MEDS ORDERED: BACLOFEN 10 MG TABLET PO SCH (21:00)
[2017-10-02] MEDS ORDERED: DIAZEPAM 5 MG/ML, 2ML IV ONE (21:11)
[2017-10-02 22:21] VITALS: BP 131/77
[2017-10-02 22:22] VITALS: BP 131/77
[2017-10-02] MEDS: ENOXAPARIN 40 MG/0.4 ML SQ SCH (23:12)
[2017-10-02] MEDS: METOPROLOL TARTRATE 25 MG TABLET PO SCH (23:13)
[2017-10-02] MEDS: MAGNESIUM CHLORIDE 64 MG TABLET.DR PO SCH (23:37)
[2017-10-03 02:00] VITALS: BP 128/77
[2017-10-03] MEDS: CHLORDIAZEPOXIDE 25 MG CAPSULE PO PRN ×2 (02:01→06:13)
[2017-10-03 05:39] LABS: HEMATOCRIT 35.7 % (39.2-51.8); HEMOGLOBIN 12.5 g/dL (13.7-18.0); WHITE BLOOD COUNT 5.1 x10^3/uL (3.4-10)
[2017-10-03 05:41] LABS: ASPARTATE AMINO TRANSFERASE 268 U/L (15-37); BLOOD UREA NITROGEN 17 mg/dL (7-18)
[2017-10-03 06:00] LABS: DIFF TOTAL CELLS COUNTED 100 CELL DIFF
[2017-10-03 06:08] LABS: VERIFY COUNTS? YES
[2017-10-03 06:09] LABS: ANISOCYTOSIS 1+
[2017-10-03 06:11] LABS: POLYCHROMASIA 1+
[2017-10-03] MEDS: GABAPENTIN 400 MG CAPSULE PO SCH ×4 (06:13→21:24)
[2017-10-03] MEDS: INSULIN ASPART 100 UNITS/ML, PEN SQ-INSULIN SCH ×4 (07:00→21:25)
[2017-10-03] MEDS ORDERED: LORazepam 1MG TABLET PO PRN ×3 (07:00)
[2017-10-03] MEDS ORDERED: LORazepam 2 MG/ML, 1ML IV PRN ×5 (07:00)
[2017-10-03 07:58] VITALS: BP 161/96
[2017-10-03] MEDS: FOLIC ACID 1 MG TABLET PO SCH (09:45)
[2017-10-03] MEDS: HYDROCHLOROTHIAZIDE 25 MG TABLET PO SCH (09:45)
[2017-10-03] MEDS: MULTIVITAMINS/MINERALS TABLET PO SCH (09:46)
[2017-10-03] MEDS: MAGNESIUM CHLORIDE 64 MG TABLET.DR PO SCH ×3 (09:46→21:24)
[2017-10-03] MEDS: METOPROLOL TARTRATE 25 MG TABLET PO SCH ×2 (09:46→21:24)
[2017-10-03] MEDS: OMEPRAZOLE 20 MG CAPSULE.DR PO SCH ×2 (09:47→21:24)
[2017-10-03] MEDS: POTASSIUM CHLORIDE 20 MEQ, MAGNESIUM SULFATE 1 GM, FOLIC ACID 1 MG, THIAMINE 100 MG, MV... IV SCH (12:05)
[2017-10-03 13:03] VITALS: BP 138/86
[2017-10-03] MEDS: LORazepam 0.5MG TABLET PO PRN ×2 (17:32→21:43)
[2017-10-03 18:38] VITALS: BP 145/97
[2017-10-03] MEDS: ENOXAPARIN 40 MG/0.4 ML SQ SCH (21:24)
[2017-10-03] MEDS: TRAZODONE 100MG TABLET PO SCH (21:24)
[2017-10-04 02:25] VITALS: BP_SYST 140; BP_SYST 150; BP_DIAS 104; BP_DIAS 98
[2017-10-04] MEDS: GABAPENTIN 400 MG CAPSULE PO SCH ×4 (05:09→20:22)
[2017-10-04 06:01] LABS: HEMATOCRIT 37.7 % (39.2-51.8); HEMOGLOBIN 13.2 g/dL (13.7-18.0); WHITE BLOOD COUNT 4.7 x10^3/uL (3.4-10)
[2017-10-04 06:07] LABS: BLOOD UREA NITROGEN 10 mg/dL (7-18)
[2017-10-04 06:11] LABS: ASPARTATE AMINO TRANSFERASE 177 U/L (15-37)
[2017-10-04 06:39] LABS: DIFF TOTAL CELLS COUNTED 100 CELL DIFF
[2017-10-04 06:44] LABS: ANISOCYTOSIS 1+; POLYCHROMASIA 1+
[2017-10-04 06:45] LABS: VERIFY COUNTS? YES
[2017-10-04 07:56] VITALS: BP 143/93
[2017-10-04] MEDS: INSULIN ASPART 100 UNITS/ML, PEN SQ-INSULIN SCH ×4 (08:29→20:53)
[2017-10-04] MEDS: LORazepam 1MG TABLET PO PRN ×3 (08:44→20:38)
[2017-10-04] MEDS: HYDROCHLOROTHIAZIDE 25 MG TABLET PO SCH (08:44)
[2017-10-04] MEDS: OMEPRAZOLE 20 MG CAPSULE.DR PO SCH ×2 (08:44→20:22)
[2017-10-04] MEDS: FOLIC ACID 1 MG TABLET PO SCH (08:44)
[2017-10-04] MEDS: MAGNESIUM CHLORIDE 64 MG TABLET.DR PO SCH ×3 (08:44→20:38)
[2017-10-04] MEDS: METOPROLOL TARTRATE 25 MG TABLET PO SCH ×2 (08:44→20:23)
[2017-10-04] MEDS: MULTIVITAMINS/MINERALS TABLET PO SCH (08:44)
[2017-10-04] MEDS: POTASSIUM CHLORIDE 20 MEQ, MAGNESIUM SULFATE 1 GM, FOLIC ACID 1 MG, THIAMINE 100 MG, MV... IV SCH (10:42)
[2017-10-04] MEDS ORDERED: POTASSIUM CHLORIDE 20 MEQ TAB.ER.PRT PO ONE (11:00)
[2017-10-04 14:36] VITALS: BP 142/98
[2017-10-04 17:21] LABS: DAU SCREEN DISCLAIMER
[2017-10-04 19:23] VITALS: BP 156/93
[2017-10-04] MEDS: TRAZODONE 100MG TABLET PO SCH (20:22)
[2017-10-04] MEDS: ENOXAPARIN 40 MG/0.4 ML SQ SCH (20:38)
[2017-10-05 01:44] VITALS: BP 150/98
[2017-10-05] MEDS: LORazepam 1MG TABLET PO PRN ×3 (01:50→17:50)
[2017-10-05 05:36] LABS: ASPARTATE AMINO TRANSFERASE 188 U/L (15-37); BLOOD UREA NITROGEN 7 mg/dL (7-18)
[2017-10-05] MEDS: GABAPENTIN 400 MG CAPSULE PO SCH ×4 (06:26→21:03)
[2017-10-05] MEDS: LORazepam 0.5MG TABLET PO PRN ×2 (06:26→21:04)
[2017-10-05] MEDS: INSULIN ASPART 100 UNITS/ML, PEN SQ-INSULIN SCH ×4 (07:00→21:15)
[2017-10-05 07:19] LABS: HEMATOCRIT 37.3 % (39.2-51.8); WHITE BLOOD COUNT 4.1 x10^3/uL (3.4-10)
[2017-10-05 07:21] LABS: DIFF TOTAL CELLS COUNTED 100 CELL DIFF
[2017-10-05 07:28] LABS: ANISOCYTOSIS 1+; POLYCHROMASIA 1+; VERIFY COUNTS? YES
[2017-10-05] MEDS: FOLIC ACID 1 MG TABLET PO SCH ×2 (09:30→09:45)
[2017-10-05] MEDS: HYDROCHLOROTHIAZIDE 25 MG TABLET PO SCH (09:45)
[2017-10-05] MEDS: METOPROLOL TARTRATE 25 MG TABLET PO SCH ×2 (09:45→21:03)
[2017-10-05] MEDS: OMEPRAZOLE 20 MG CAPSULE.DR PO SCH ×2 (09:45→21:04)
[2017-10-05] MEDS: MULTIVITAMINS/MINERALS TABLET PO SCH (09:45)
[2017-10-05] MEDS: MAGNESIUM CHLORIDE 64 MG TABLET.DR PO SCH ×2 (09:45→17:50)
[2017-10-05] MEDS: THIAMINE 100MG TABLET PO SCH (09:46)
[2017-10-05 10:40] VITALS: BP 135/90
[2017-10-05 17:30] VITALS: BP 138/78
[2017-10-05 20:00] VITALS: BP 137/94
[2017-10-05] MEDS: ENOXAPARIN 40 MG/0.4 ML SQ SCH (21:02)
[2017-10-05] MEDS: TRAZODONE 100MG TABLET PO SCH (21:04)
[2017-10-06] MEDS: LORazepam 1MG TABLET PO PRN (00:56)
[2017-10-06 03:07] VITALS: BP 154/95
[2017-10-06] MEDS: LORazepam 0.5MG TABLET PO PRN ×2 (05:43→20:14)
[2017-10-06] MEDS: GABAPENTIN 400 MG CAPSULE PO SCH ×4 (05:43→20:18)
[2017-10-06 06:09] LABS: BLOOD UREA NITROGEN 10 mg/dL (7-18)
[2017-10-06] MEDS: INSULIN ASPART 100 UNITS/ML, PEN SQ-INSULIN SCH ×4 (07:00→20:16)
[2017-10-06 07:33] VITALS: BP 168/101
[2017-10-06] MEDS: FOLIC ACID 1 MG TABLET PO SCH ×2 (07:58→07:59)
[2017-10-06] MEDS: HYDROCHLOROTHIAZIDE 25 MG TABLET PO SCH (07:59)
[2017-10-06] MEDS: METOPROLOL TARTRATE 25 MG TABLET PO SCH ×2 (08:00→20:17)
[2017-10-06] MEDS: OMEPRAZOLE 20 MG CAPSULE.DR PO SCH ×2 (08:00→20:18)
[2017-10-06] MEDS: MULTIVITAMINS/MINERALS TABLET PO SCH (08:00)
[2017-10-06] MEDS: THIAMINE 100MG TABLET PO SCH (08:05)
[2017-10-06 13:46] VITALS: BP 154/109
[2017-10-06 19:18] VITALS: BP 142/103
[2017-10-06 19:56] VITALS: BP 148/97
[2017-10-06] MEDS: ENOXAPARIN 40 MG/0.4 ML SQ SCH (20:17)
[2017-10-06] MEDS: TRAZODONE 100MG TABLET PO SCH (20:17)
[2017-10-07] MEDS: OXYcodone IR 5MG TABLET PO PRN ×2 (01:22→08:51)
[2017-10-07 02:03] VITALS: BP 153/98
[2017-10-07] MEDS: GABAPENTIN 400 MG CAPSULE PO SCH (05:47)
[2017-10-07] MEDS: INSULIN ASPART 100 UNITS/ML, PEN SQ-INSULIN SCH (07:00)
[2017-10-07] MEDS ORDERED: GADOBUTROL 10 MMOL/10 ML PFS ONE (07:39)
[2017-10-07] MEDS ORDERED: CYCLOBENZAPRINE 10 MG TABLET PO PRN (08:00)
[2017-10-07 08:35] VITALS: BP 128/90
[2017-10-07] MEDS: THIAMINE 100MG TABLET PO SCH (08:51)
[2017-10-07] MEDS: OMEPRAZOLE 20 MG CAPSULE.DR PO SCH (08:52)
[2017-10-07] MEDS: MULTIVITAMINS/MINERALS TABLET PO SCH (08:52)
[2017-10-07] MEDS: METOPROLOL TARTRATE 25 MG TABLET PO SCH (08:53)
[2017-10-07] MEDS: HYDROCHLOROTHIAZIDE 25 MG TABLET PO SCH (08:53)
[2017-10-07] MEDS: FOLIC ACID 1 MG TABLET PO SCH ×2 (08:53)
[2017-10-07] MEDS ORDERED: GABAPENTIN 400 MG CAPSULE PO SCH (09:00)
[2017-10-07] MEDS: LORazepam 0.5MG TABLET PO PRN (09:52)
[2017-10-07 13:48] VITALS: BP 139/94
[2017-10-07] MEDS ORDERED: FOLI-17 PO (14:15)
[2017-10-07] MEDS ORDERED: THIA100T6 PO (14:15)
[2017-10-07] MEDS ORDERED: CYCL-259 PO (14:15)
[2017-10-07] MEDS ORDERED: PRED20TA PO (15:10)
== END 2017-10-07 17:00 | DRG 896 ==
LOC: ED 16:21 → EDIP 19:47 → 4WST 22:58
PROVIDERS: ADMIT Internal Medicine; ATTEND Internal Medicine
DX: F10.239 Alcohol dependence with withdrawal, unspecified (principal); G93.40 Encephalopathy, unspecified; D69.59 Other secondary thrombocytopenia; E11.21 Type 2 diabetes mellitus with diabetic nephropathy; E11.40 Type 2 diabetes mellitus with diabetic neuropathy, unspecified; G62.1 Alcoholic polyneuropathy; W18.30XA Fall on same level, unspecified, initial encounter; Z23 Encounter for immunization; E87.6 Hypokalemia; I10 Essential (primary) hypertension; K21.9 Gastro-esophageal reflux disease without esophagitis; K74.60 Unspecified cirrhosis of liver; K76.0 Fatty (change of) liver, not elsewhere classified; K80.20 Calculus of gallbladder without cholecystitis without obstruction; M47.812 Spondylosis without myelopathy or radiculopathy, cervical region; S00.81XA Abrasion of other part of head, initial encounter; S62.331A Displaced fracture of neck of second metacarpal bone, left hand, initial encounter for closed fracture; S92.322A Displaced fracture of second metatarsal bone, left foot, initial encounter for closed fracture; Y90.6 Blood alcohol level of 120-199 mg/100 ml; Z86.79 Personal history of other diseases of the circulatory system; Z91.5 Personal history of self-harm; Y92.009 Unspecified place in unspecified non-institutional (private) residence as the place of occurrence of the external cause
CPT/HCPCS: 36415; 70450; 72125; 72156; 76700; 80048; 80053; 80307; 82040; 82140; 82607; 82746; 82962; 83735; 84100; 84439; 84443; 85025; 90715; 93005; A9585; J1650; J1815; J2405; J3360; J3411; J3475; J3480; J7042; G0479; J2060; J7030; S0028

== ENCOUNTER 2017-10-22 16:22 | Emergency (ER) | payer OTHER ==
[~2017-10-22] VITALS: Ht 190.5 cm; Wt 97.7 kg
[~2017-10-22 16:22] MED LIST changes: +CYCL-259 PO; +PRED20TA PO; +THIA100T6 PO
[2017-10-22 16:58] VITALS: BP 108/78
[2017-10-22] MEDS ORDERED: LORazepam 1MG TABLET ONE (19:12)
[2017-10-22] MEDS ORDERED: IBUPROFEN 200 MG TABLET ONE (19:12)
[2017-10-22] MEDS ORDERED: LORazepam 1MG TABLET PO ONE (19:30)
[2017-10-22] MEDS ORDERED: IBUPROFEN 200 MG TABLET PO ONE (19:30)
== END 2017-10-22 19:47 | disposition home or self-care (01) ==
LOC: ED 19:15
DX: M25.521 Pain in right elbow (principal); R20.2 Paresthesia of skin; I10 Essential (primary) hypertension; K21.9 Gastro-esophageal reflux disease without esophagitis; E11.42 Type 2 diabetes mellitus with diabetic polyneuropathy
CPT/HCPCS: 82962; 99283

== ENCOUNTER 2017-12-16 23:00 | Inpatient (IN) | payer OTHER ==
[~2017-12-16] VITALS: Ht 190.5 cm; Wt 101.0 kg
[2017-12-16] MEDS ORDERED: LORazepam 2 MG/ML, 1ML ONE (23:24)
[2017-12-16] MEDS ORDERED: LORazepam 2 MG/ML, 1ML IVPush ONE (23:30)
[2017-12-16] MEDS ORDERED: SODIUM CHLORIDE 0.9% 1,000ML IVBOLUS ONE (23:30)
[2017-12-16 23:58] LABS: ALBUMIN 3.9 g/dL (3.4-5.0); ANION GAP 23 mmol/L (5-15); CALCIUM 8.4 mg/dL (8.5-10.1); CHLORIDE 100 mmol/L (98-107)
[2017-12-17 00:05] LABS: ALANINE AMINOTRANSFERASE 95 U/L (12-78); ALKALINE PHOSPHATASE 63 U/L (45-117); BILIRUBIN,TOTAL 0.7 mg/dL (0.2-1.0); CREATININE 1.92 mg/dL (0.7-1.3); TOTAL PROTEIN 7.9 g/dL (6.4-8.2); TROPONIN I 0.033 ng/mL (0.000-0.045)
[2017-12-17 00:07] LABS: MEAN CORPUSCULAR HEMOGLOBIN 34.5 pg (27.5-34.5); MEAN CORPUSCULAR HGB CONC 34.7 g/dL (33.2-36.2); MEAN CORPUSCULAR VOLUME 99.5 fL (81-97); MEAN PLATELET VOLUME 8.2 fL (7.4-10.4); PLATELET COUNT 277 x10^3/uL (130-400); RED BLOOD COUNT 5.07 x10^6/uL (4.38-5.82); RED CELL DISTRIBUTION WIDTH 13.9 % (9.4-14.8)
[2017-12-17] MEDS ORDERED: VANCOMYCIN PER PHARMACY IV ONE (00:30)
[2017-12-17] MEDS ORDERED: PIPERACILLIN/TAZO/PMX 3.375GM 50 ML IVPB ONE (00:30)
[2017-12-17] MEDS ORDERED: VANCOMYCIN 1,900 MG in SODIUM CHLORIDE 0.9% 250 ML IV ONE (00:30)
[2017-12-17] MEDS ORDERED: SODIUM CHLORIDE 0.9% 1,000ML IVBOLUS ONE ×2 (00:30→01:30)
[2017-12-17 00:38] LABS: CREATINE KINASE, TOTAL 8707 U/L (39-308)
[2017-12-17] MEDS ORDERED: PIPERACILLIN/TAZO/PMX 3.375GM 50 ML ONE (00:47)
[2017-12-17] MEDS ORDERED: LORazepam 2 MG/ML, 1ML ONE ×2 (00:48→07:27)
[2017-12-17 00:56] LABS: BASOPHILS # (AUTO) 0.01 x10^3/uL (0-0.1); BASOPHILS % (AUTO) 0 % (0-1); EOSINOPHILS # (AUTO) 0.03 x10^3/uL (0-0.4); EOSINOPHILS % (AUTO) 0 % (1-7); LYMPHOCYTES # (AUTO) 1.27 x10^3/uL (1-3.4); LYMPHOCYTES % (AUTO) 7 % (22-44); MD SCAN; MONOCYTES # (AUTO) 0.68 x10^3/uL (0.2-0.8); MONOCYTES % (AUTO) 4 % (2-9); NEUTROPHILS % (AUTO) 90 % (42-75)
[2017-12-17] MEDS ORDERED: LORazepam 2 MG/ML, 1ML IVPush ONE (01:00)
[2017-12-17 01:20] LABS: AMPHETAMINE SCREEN, URINE Negative (Negative); BARBITURATE SCREEN, URINE Negative (Negative); BENZODIAZEPINE SCREEN, URINE Negative (Negative); CANNABINOID SCREEN, URINE Negative (Negative); COCAINE SCREEN, URINE Negative (Negative); METHADONE SCREEN, URINE Negative (Negative); OPIATE SCREEN, URINE Negative (Negative)
[2017-12-17] MEDS ORDERED: ONDANSETRON 2MG/ML, 2ML IVPush ONE (02:30)
[2017-12-17] MEDS ORDERED: MORPHINE SULFATE 4 MG/ML, 1ML IVPush PRN ×2 (02:30→03:00)
[2017-12-17] MEDS ORDERED: SODIUM CHLORIDE 0.9% 1,000 ML IV ONE (02:38)
[2017-12-17] MEDS ORDERED: ONDANSETRON 2MG/ML, 2ML IVPush PRN ×2 (03:00→03:30)
[2017-12-17] MEDS ORDERED: MORPHINE SULFATE 4 MG/ML, 1ML ONE ×2 (03:06→06:43)
[2017-12-17] MEDS ORDERED: ONDANSETRON ODT 4 MG PO PRN (03:30)
[2017-12-17] MEDS ORDERED: TEMAZEPAM 15 MG CAPSULE PO PRN (03:30)
[2017-12-17] MEDS ORDERED: LORazepam 2 MG/ML, 1ML IVPush PRN (03:30)
[2017-12-17] MEDS ORDERED: ACETAMINOPHEN 325 MG TABLET PO PRN (03:30)
[2017-12-17] MEDS: PIPERACILLIN/TAZO/PMX 3.375GM 50 ML IV SCH ×3 (03:30→20:09)
[2017-12-17] MEDS ORDERED: LORazepam 1MG TABLET PO PRN (03:30)
[2017-12-17] MEDS ORDERED: LABETALOL 5MG/ML, 20ML IVPush PRN (03:30)
[2017-12-17] MEDS ORDERED: morphine SULFATE 10 MG/ML, 1ML IVPush PRN (03:30)
[2017-12-17] MEDS ORDERED: SODIUM BICARBONATE 8.4% 75 MEQ in SODIUM CHLORIDE 0.45% 1,000 ML IV SCH (04:00)
[2017-12-17] MEDS ORDERED: MAGNESIUM SULFATE PMX 4GM/100M 100 ML IV ONE (04:00)
[2017-12-17 04:24] LABS: HEMOGLOBIN A1C 5.2 % (4.2-6.3)
[2017-12-17 04:48] LABS: BASOPHILS # (AUTO) 0.08 x10^3/uL (0-0.1); BASOPHILS % (AUTO) 1 % (0-1); EOSINOPHILS # (AUTO) 0.04 x10^3/uL (0-0.4); EOSINOPHILS % (AUTO) 0 % (1-7); LYMPHOCYTES # (AUTO) 3.45 x10^3/uL (1-3.4); LYMPHOCYTES % (AUTO) 21 % (22-44); MD NO; MEAN CORPUSCULAR HEMOGLOBIN 34.6 pg (27.5-34.5); MEAN CORPUSCULAR HGB CONC 34.8 g/dL (33.2-36.2); MEAN CORPUSCULAR VOLUME 99.4 fL (81-97); MEAN PLATELET VOLUME 7.6 fL (7.4-10.4); MONOCYTES # (AUTO) 1.29 x10^3/uL (0.2-0.8); MONOCYTES % (AUTO) 8 % (2-9); NEUTROPHILS # (AUTO) 11.61 x10^3/uL (1.8-6.8); NEUTROPHILS % (AUTO) 71 % (42-75); PLATELET COUNT 243 x10^3/uL (130-400); RED BLOOD COUNT 4.67 x10^6/uL (4.38-5.82)
[2017-12-17 05:02] LABS: CHLORIDE 104 mmol/L (98-107)
[2017-12-17 05:14] LABS: ANION GAP 14 mmol/L (5-15); CALCIUM 8.6 mg/dL (8.5-10.1); CREATININE 1.35 mg/dL (0.7-1.3)
[2017-12-17] MEDS: POTASSIUM CHLORIDE 20 MEQ, MAGNESIUM SULFATE 2 GM, MVI ADULT 10 ML, FOLIC ACID 1 MG in ... IV SCH ×2 (05:30→23:39)
[2017-12-17] MEDS: INSULIN LISPRO 100 UNITS/ML, PEN SQ-INSULIN SCH ×2 (06:58→10:41)
[2017-12-17] MEDS ORDERED: ONDANSETRON 2MG/ML, 2ML ONE (07:27)
[2017-12-17] MEDS ORDERED: AMPICILLIN/SULBACTAM 3 GM in SODIUM CHLORIDE 0.9% 100 ML IV SCH (08:00)
[2017-12-17] MEDS ORDERED: FAMOTIDINE 20 MG/2 ML IVPush SCH (09:00)
[2017-12-17] MEDS ORDERED: FAMOTIDINE 20 MG/2 ML ONE (10:30)
[2017-12-17] MEDS ORDERED: METOPROLOL TARTRATE 25 MG TABLET ONE (10:31)
[2017-12-17] MEDS ORDERED: THIAMINE 100MG TABLET ONE (10:31)
[2017-12-17] MEDS: THIAMINE 100MG TABLET PO SCH (10:35)
[2017-12-17] MEDS: METOPROLOL TARTRATE 25 MG TABLET PO SCH ×2 (10:35→20:08)
[2017-12-17] MEDS: OXYcodone IR 5MG TABLET PO PRN ×3 (11:45→23:39)
[2017-12-17] MEDS ORDERED: CHLORDIAZEPOXIDE 10 MG CAPSULE ONE (11:47)
[2017-12-17] MEDS: CHLORDIAZEPOXIDE 25 MG CAPSULE PO SCH ×3 (11:50→20:08)
[2017-12-17] MEDS: LORazepam 2 MG/ML, 1ML IVPush PRN ×4 (11:51→23:39)
[2017-12-17] MEDS: HEPARIN 5,000 UNITS/ML, 1ML SQ SCH ×2 (15:42→23:39)
[2017-12-18 04:30] LABS: ANION GAP 7 mmol/L (5-15); CALCIUM 7.8 mg/dL (8.5-10.1); CHLORIDE 106 mmol/L (98-107); CREATININE 0.98 mg/dL (0.7-1.3)
[2017-12-18 04:31] LABS: ALANINE AMINOTRANSFERASE 63 U/L (12-78); ALBUMIN 2.8 g/dL (3.4-5.0)
[2017-12-18 04:39] LABS: BASOPHILS # (AUTO) 0.04 x10^3/uL (0-0.1); BASOPHILS % (AUTO) 0 % (0-1); EOSINOPHILS # (AUTO) 0.04 x10^3/uL (0-0.4); EOSINOPHILS % (AUTO) 0 % (1-7); LYMPHOCYTES # (AUTO) 2.38 x10^3/uL (1-3.4); LYMPHOCYTES % (AUTO) 24 % (22-44); MD NO; MEAN CORPUSCULAR HEMOGLOBIN 34.6 pg (27.5-34.5); MEAN CORPUSCULAR HGB CONC 34.8 g/dL (33.2-36.2); MEAN CORPUSCULAR VOLUME 99.5 fL (81-97); MEAN PLATELET VOLUME 7.7 fL (7.4-10.4); MONOCYTES % (AUTO) 8 % (2-9); NEUTROPHILS # (AUTO) 6.83 x10^3/uL (1.8-6.8); NEUTROPHILS % (AUTO) 68 % (42-75); PLATELET COUNT 108 x10^3/uL (130-400); RED CELL DISTRIBUTION WIDTH 13.7 % (9.4-14.8)
[2017-12-18 04:50] LABS: ALKALINE PHOSPHATASE 46 U/L (45-117); BILIRUBIN,TOTAL 1.6 mg/dL (0.2-1.0); CREATINE KINASE, TOTAL 2802 U/L (39-308); TOTAL PROTEIN 5.7 g/dL (6.4-8.2)
[2017-12-18 05:21] VITALS: BP 140/90
[2017-12-18] MEDS: PIPERACILLIN/TAZO/PMX 3.375GM 50 ML IV SCH (05:23)
[2017-12-18] MEDS: METOPROLOL TARTRATE 25 MG TABLET PO SCH (08:50)
[2017-12-18] MEDS: HEPARIN 5,000 UNITS/ML, 1ML SQ SCH (08:51)
[2017-12-18] MEDS: THIAMINE 100MG TABLET PO SCH (08:51)
[2017-12-18] MEDS: CHLORDIAZEPOXIDE 25 MG CAPSULE PO SCH (08:51)
[2017-12-18] MEDS: POTASSIUM CHLORIDE 20 MEQ, MAGNESIUM SULFATE 2 GM, MVI ADULT 10 ML, FOLIC ACID 1 MG in ... IV SCH (09:15)
[2017-12-18] MEDS ORDERED: VANCOMYCIN PER PHARMACY MC PRN (09:30)
[2017-12-18 13:01] VITALS: BP 136/87
[2017-12-18] MEDS: LORazepam 2 MG/ML, 1ML IVPush PRN (13:02)
[2017-12-18] MEDS ORDERED: PHARMACOKINETIC MONITORING MC PRN (13:30)
[2017-12-18] MEDS ORDERED: VANCOMYCIN 1,800 MG in SODIUM CHLORIDE 0.9% 250 ML IV SCH (15:00)
== END 2017-12-18 15:06 | disposition left against medical advice (07) | DRG 872 ==
LOC: ED 23:26 → EDIP 12-17 02:38 → CCU 12-17 11:22 → 3NE 12-18 12:08
PROVIDERS: ADMIT Internal Medicine; ATTEND Internal Medicine
DX: A41.9 Sepsis, unspecified organism (principal); N17.9 Acute kidney failure, unspecified; E11.41 Type 2 diabetes mellitus with diabetic mononeuropathy; E87.2 Acidosis; M62.82 Rhabdomyolysis; E83.42 Hypomagnesemia; E11.65 Type 2 diabetes mellitus with hyperglycemia; F10.239 Alcohol dependence with withdrawal, unspecified; L03.116 Cellulitis of left lower limb; W19.XXXA Unspecified fall, initial encounter; K70.10 Alcoholic hepatitis without ascites; E86.0 Dehydration; F32.9 Major depressive disorder, single episode, unspecified; F41.9 Anxiety disorder, unspecified; K21.9 Gastro-esophageal reflux disease without esophagitis; K22.70 Barrett's esophagus without dysplasia; M60.9 Myositis, unspecified; I10 Essential (primary) hypertension; Y90.6 Blood alcohol level of 120-199 mg/100 ml; S09.90XA Unspecified injury of head, initial encounter; Z88.8 Allergy status to other drugs, medicaments and biological substances; Y92.009 Unspecified place in unspecified non-institutional (private) residence as the place of occurrence of the external cause
CPT/HCPCS: 36415; 70450; 71045; 72170; 72192; 80048; 80053; 80307; 82140; 82550; 82962; 83036; 83605; 83690; 83735; 84100; 84145; 84484; 85025; 87040; 87081; 93005; 96361; 96365; 96375; 96376; J1644; J2405; J2543; J3370; J3475; J3480; J7042; J1815; J2060; J2270; J7030; J7050; S0028

== ENCOUNTER 2018-04-16 04:06 | Emergency (ER) | payer OTHER ==
[~2018-04-16] VITALS: Ht 190.5 cm; Wt 102.5 kg
[~2018-04-16 04:06] MED LIST changes: +METF500T9 PO; +OLME1TAB84 PO; +OLME20TA17 PO; -OLME20TA19 PO; +OMEP-110 PO; +OMEP20CA14 PO; +PIOG30TA3 PO; +metformin
[2018-04-16] MEDS ORDERED: SODIUM CHLORIDE 0.9% 1,000 ML IV ONE (04:42)
[2018-04-16] MEDS ORDERED: LORazepam 2 MG/ML, 1ML ONE (04:57)
[2018-04-16] MEDS ORDERED: FAMOTIDINE 20 MG/2 ML ONE (04:57)
[2018-04-16] MEDS ORDERED: LORazepam 2 MG/ML, 1ML IVPush ONE (05:00)
[2018-04-16] MEDS ORDERED: THIAMINE 100MG TABLET PO ONE (05:00)
[2018-04-16] MEDS ORDERED: SODIUM CHLORIDE 0.9% 1,000ML IVBOLUS ONE ×2 (05:00→08:00)
[2018-04-16] MEDS ORDERED: FAMOTIDINE 20 MG/2 ML IVPush ONE (05:00)
[2018-04-16 05:36] LABS: MEAN CORPUSCULAR VOLUME 94.5 fL (81-97); MEAN PLATELET VOLUME 6.8 fL (7.4-10.4); PLATELET COUNT 165 x10^3/uL (130-400); RED BLOOD COUNT 4.94 x10^6/uL (4.38-5.82)
[2018-04-16 05:43] LABS: CALCIUM 8.4 mg/dL (8.5-10.1); CHLORIDE 107 mmol/L (98-107)
[2018-04-16 05:54] LABS: ALANINE AMINOTRANSFERASE 57 U/L (12-78); ALBUMIN 3.5 g/dL (3.4-5.0); ALKALINE PHOSPHATASE 77 U/L (45-117); ANION GAP 11 mmol/L (5-15); CREATININE 0.89 mg/dL (0.7-1.3); TOTAL PROTEIN 7.2 g/dL (6.4-8.2)
[2018-04-16 06:03] LABS: MD YES
[2018-04-16 06:05] LABS: BASOS#(MANUAL) 0.07 x10^3/uL (0-0.1); BASOS% (MANUAL) 1 % (0-1); EOS#(MANUAL) 0.13 x10^3/uL (0.0-0.4); EOS% (MANUAL) 2 % (1-7); LYMPH#(MANUAL) 3.83 x10^3/uL (1-3.4); LYMPHS% (MANUAL) 58 % (22-44); MONOS#(MANUAL) 0.13 x10^3/uL (0.3-2.7); MONOS% (MANUAL) 2 % (2-9); REACTIVE LYMPHS # (MANUAL) 0.13 x10^3/uL (0-0); REACTIVE LYMPHS % (MANUAL) 2 % (0-0); SEG#(MANUAL) 2.31 x10^3/uL (1.8-6.8); SEGS% (MANUAL) 35 % (42-75)
[2018-04-16 06:06] LABS: <PLATELET ESTIMATE> ADEQUATE; <RBC MORPHOLOGY> NORMAL
[2018-04-16 06:07] LABS: <PLT MORPHOLOGY> NORMAL PLT MORPH
[2018-04-16 06:42] LABS: AMPHETAMINE SCREEN, URINE Negative (Negative); BARBITURATE SCREEN, URINE Negative (Negative); BENZODIAZEPINE SCREEN, URINE Negative (Negative); CANNABINOID SCREEN, URINE Negative (Negative); COCAINE SCREEN, URINE Negative (Negative); METHADONE SCREEN, URINE Negative (Negative); OPIATE SCREEN, URINE Negative (Negative)
[2018-04-16] MEDS ORDERED: LORazepam 1MG TABLET PO ONE (07:30)
[2018-04-16] MEDS ORDERED: THIAMINE 100MG TABLET ONE (07:34)
[2018-04-16] MEDS ORDERED: LORazepam 1MG TABLET ONE (07:35)
[2018-04-16 08:52] VITALS: BP 139/83
== END 2018-04-16 09:35 | disposition home or self-care (01) ==
LOC: ED 04:44
DX: F10.220 Alcohol dependence with intoxication, uncomplicated (principal); I10 Essential (primary) hypertension; Z79.899 Other long term (current) drug therapy
CPT/HCPCS: 36415; 70450; 80053; 80307; 82140; 85025; 93005; 96374; 96375; 99285; J2060; J7030; S0028

== ENCOUNTER 2018-04-24 20:31 | Emergency (ER) | payer OTHER ==
[~2018-04-24] VITALS: Ht 190.5 cm; Wt 100.2 kg
[2018-04-24 20:41] VITALS: BP 150/81
[2018-04-24 21:48] LABS: MICROSCOPIC NOT IND
[2018-04-24 21:56] LABS: CULTURE INDICATED? NO
[2018-04-24 21:57] LABS: BASOPHILS # (AUTO) 0.03 x10^3/uL (0-0.1); BASOPHILS % (AUTO) 1 % (0-1); EOSINOPHILS # (AUTO) 0.03 x10^3/uL (0-0.4); EOSINOPHILS % (AUTO) 0 % (1-7); LYMPHOCYTES # (AUTO) 3.45 x10^3/uL (1-3.4); LYMPHOCYTES % (AUTO) 50 % (22-44); MD NO; MEAN CORPUSCULAR HEMOGLOBIN 33.2 pg (27.5-34.5); MEAN CORPUSCULAR HGB CONC 34.6 g/dL (33.2-36.2); MEAN CORPUSCULAR VOLUME 95.9 fL (81-97); MEAN PLATELET VOLUME 6.7 fL (7.4-10.4); MONOCYTES # (AUTO) 0.53 x10^3/uL (0.2-0.8); MONOCYTES % (AUTO) 8 % (2-9); NEUTROPHILS # (AUTO) 2.84 x10^3/uL (1.8-6.8); NEUTROPHILS % (AUTO) 41 % (42-75); PLATELET COUNT 123 x10^3/uL (130-400); RED BLOOD COUNT 4.56 x10^6/uL (4.38-5.82); RED CELL DISTRIBUTION WIDTH 14.7 % (9.4-14.8)
[2018-04-24 22:09] LABS: ALBUMIN 3.8 g/dL (3.4-5.0); ANION GAP 13 mmol/L (5-15); CALCIUM 8.6 mg/dL (8.5-10.1); CHLORIDE 108 mmol/L (98-107)
[2018-04-24 22:13] LABS: ALANINE AMINOTRANSFERASE 161 U/L (12-78); ALKALINE PHOSPHATASE 82 U/L (45-117); BILIRUBIN,TOTAL 1.5 mg/dL (0.2-1.0); CREATININE 0.92 mg/dL (0.7-1.3); TOTAL PROTEIN 7.4 g/dL (6.4-8.2)
[2018-04-24 22:13] LABS: AMPHETAMINE SCREEN, URINE Negative (Negative); BARBITURATE SCREEN, URINE Negative (Negative); BENZODIAZEPINE SCREEN, URINE Negative (Negative); CANNABINOID SCREEN, URINE Negative (Negative); COCAINE SCREEN, URINE Negative (Negative); METHADONE SCREEN, URINE Negative (Negative); OPIATE SCREEN, URINE Negative (Negative)
[2018-04-24 22:19] LABS: ACETAMINOPHEN < 2 mcg/mL (10-30); SALICYLATE LEVEL < 1.7 mg/dL (2.8-20.0)
== END 2018-04-24 23:29 | disposition home or self-care (01) ==
LOC: ED 22:35
DX: F10.220 Alcohol dependence with intoxication, uncomplicated (principal); E87.6 Hypokalemia; F19.10 Other psychoactive substance abuse, uncomplicated; Z72.9 Problem related to lifestyle, unspecified; F17.200 Nicotine dependence, unspecified, uncomplicated; I10 Essential (primary) hypertension; K21.9 Gastro-esophageal reflux disease without esophagitis; E11.65 Type 2 diabetes mellitus with hyperglycemia; Z79.899 Other long term (current) drug therapy
CPT/HCPCS: 36415; 80053; 80307; 80329; 81003; 85025; 99284; G0480

== ENCOUNTER 2018-10-22 09:25 | Day surgery (SDC) | payer OTHER ==
[~2018-10-22] VITALS: Ht 190.5 cm; Wt 110.3 kg
[~2018-10-22 09:25] MED LIST changes: -AMLO10TA2 PO; +AMLO10TA8 PO; -CLON-365 PO; -CLON0.1T PO; +CLON0.1T22 PO; +CLON1TAB11 PO; +GABA-826 PO; -GABA800T2 PO; +GABA800T5 PO; +OLME1TAB25 PO; -PIOG30TA3 PO; +PIOG30TA67 PO; -THIA100T6 PO; +THIA100T67 PO; +TRAZ-137 PO; -TRAZ100T15 PO
[2018-10-22 09:41] VITALS: BP 119/76
[2018-10-22] MEDS ORDERED: LACTATED RINGERS 1,000 ML IV SCH (09:44)
[2018-10-22] MEDS ORDERED: OMEP-110 PO (09:48)
[2018-10-22] MEDS ORDERED: NAPR220C2 PO (09:48)
[2018-10-22] MEDS ORDERED: VITA1CAP PO (09:48)
[2018-10-22] MEDS ORDERED: MULT-6 PO (09:48)
[2018-10-22] MEDS ORDERED: TRAZ50TA66 PO (09:48)
[2018-10-22] MEDS ORDERED: BUPIVACAINE/PF-EPI 0.5% 1:200K ONE (11:11)
[2018-10-22] MEDS ORDERED: MIDAZOLAM 1 MG/ML, 2ML ONE (11:18)
[2018-10-22] MEDS ORDERED: FENTANYL PF 250 MCG/5ML ONE (11:18)
[2018-10-22] MEDS ORDERED: DEXAMETHASONE 4 MG/ML, 1ML ONE ×2 (11:20)
[2018-10-22] MEDS ORDERED: PROPOFOL 10 MG/ML, 20ML ONE (11:20)
[2018-10-22] MEDS ORDERED: SUCCINYLCHOLINE 20 MG/ML, 10ML ONE (11:20)
[2018-10-22] MEDS ORDERED: ONDANSETRON 2MG/ML, 2ML ONE ×2 (11:20)
[2018-10-22] MEDS ORDERED: CEFAZOLIN 1,000 MG ONE ×2 (11:20)
[2018-10-22] MEDS ORDERED: ROCURONIUM 10MG/ML,5ML ONE (11:20)
[2018-10-22] MEDS ORDERED: GLYCOPYRROLATE 0.2MG/1ML, 5ML ONE (11:22)
[2018-10-22] MEDS ORDERED: KETOROLAC 30 MG/1 ML ONE (11:22)
[2018-10-22] MEDS ORDERED: EPHEDRINE 50 MG/ML, 1ML ONE (11:22)
[2018-10-22] MEDS ORDERED: ALBUTEROL SULFATE 2.5 MG/3 ML NPPB PRN (12:00)
[2018-10-22] MEDS ORDERED: ONDANSETRON 2MG/ML, 2ML IV PRN (12:00)
[2018-10-22] MEDS ORDERED: HYDROmorphone 2 MG/ML, 1ML IVPush PRN (12:00)
[2018-10-22] MEDS ORDERED: OXYcodone 5 MG/5 ML ORAL.SOL UDC PO PRN (12:00)
[2018-10-22] MEDS ORDERED: FENTANYL PF 100 MCG/2ML IV PRN (12:00)
[2018-10-22] MEDS ORDERED: DIAZEPAM 5 MG/ML, 2ML IVPush PRN (12:00)
[2018-10-22] MEDS ORDERED: ACETAMINOPHEN 325 MG TABLET PO PRN (12:00)
[2018-10-22] MEDS ORDERED: PROMETHAZINE 25 MG/ML, 1ML IM PRN (12:00)
[2018-10-22] MEDS ORDERED: MEPERIDINE/PF 25MG/0.5ML IVPush PRN (12:00)
[2018-10-22] MEDS ORDERED: ONDANSETRON ODT 8 MG PO PRN (12:00)
[2018-10-22] MEDS ORDERED: PROMETHAZINE 25 MG SUPP PR PRN (12:00)
[2018-10-22] MEDS ORDERED: LABETALOL 5MG/ML, 20ML IV PRN (12:00)
[2018-10-22] MEDS ORDERED: hydrALAzine 20 MG/ML, 1ML IV PRN (12:00)
[2018-10-22] MEDS ORDERED: MIDAZOLAM 1 MG/ML, 2ML IV PRN (12:00)
[2018-10-22] MEDS ORDERED: EPHEDRINE 50 MG/ML, 1ML IVPush PRN (12:00)
[2018-10-22] MEDS ORDERED: MORPHINE SULFATE 4 MG/ML, 1ML IVPush PRN (12:00)
[2018-10-22] MEDS ORDERED: HALOPERIDOL 5 MG/ML IV PRN (12:00)
[2018-10-22] MEDS ORDERED: OXYcodone 5 MG/5 ML ORAL.SOL UDC ONE (12:46)
[2018-10-22] MEDS ORDERED: MORPHINE SULFATE 4 MG/ML, 1ML ONE (12:46)
== END 2018-10-22 14:55 | disposition home or self-care (01) ==
LOC: OUT 09:25
PROVIDERS: ATTEND Surgery
DX: K80.10 Calculus of gallbladder with chronic cholecystitis without obstruction (principal); K42.9 Umbilical hernia without obstruction or gangrene; K70.30 Alcoholic cirrhosis of liver without ascites; I10 Essential (primary) hypertension; F10.21 Alcohol dependence, in remission; K21.9 Gastro-esophageal reflux disease without esophagitis; Z79.899 Other long term (current) drug therapy; Z98.890 Other specified postprocedural states; Z88.8 Allergy status to other drugs, medicaments and biological substances
CPT/HCPCS: 47000; 47562; 49585; 82962; 88304; 88307; 88313; J0330; J0690; J1100; J1885; J2250; J2405; J2704; J3010; J3490; J7120

== ENCOUNTER 2018-12-16 03:01 | Inpatient (IN) | payer OTHER ==
[~2018-12-16] VITALS: Ht 190.5 cm; Wt 107.8 kg
[~2018-12-16 03:01] MED LIST changes: +NAPR220C2 PO; +TRAZ50TA66 PO; +VITA1CAP PO
--- NOTE | 2018-12-16 03:05 | NUR ---
LATE ENTRY FOR 03:05. PT BIBA. REPORT RECEIVED FROM EMS. PT HAS ETOH AND ALTERED MENTAL STATUS. PT HAD V-TACH ON [employer] SALES CONSULTANT FREELANCE DESIGNER BY EMS. AFTER IV INSERTION BY EMS, SINUS TACHY RATE 100'S ON [employer] SALES CONSULTANT BY EMS. ALL MONITORS IN PLACE. NSR RATE 90'S WITHOUT ECTOPY ON [employer] SALES CONSULTANT HERE. PT'S AOX4. RESPS EVEN AND UNLABORED. EDMD AT BEDSIDE TO ASSESS AT THIS TIME.
--- NOTE | 2018-12-16 03:05 | NUR ---
Note undone in EDM - 12/16/18 at 0407 by RADHA LATE ENTRY FOR 03:05. PT BIBA. REPORT RECEIVED FROM EMS. PT HAS ETOH AND ALTERED MENTAL STATUS. PT HAD V-TACH ON HOUSEKEEPING STAFF PHARMACEUTICAL OPERATOR BY EMS. AFTER IV INSERTION BY EMS, SINUS TACHY RATE 100'S ON HOUSEKEEPING STAFF BY EMS. ALL MONITORS IN PLACE. SINUS TACHY RATE 90'S WITHOUT ECTOPY ON HOUSEKEEPING STAFF HERE. PT'S AOX4. RESPS EVEN AND UNLABORED. EDMD AT BEDSIDE TO ASSESS AT THIS TIME.
[2018-12-16] MEDS ORDERED: FILTER 0.22 MICRON IV ONE (03:30)
[2018-12-16] MEDS ORDERED: SODIUM CHLORIDE 0.9% 1,000ML IVBOLUS ONE (03:30)
[2018-12-16] MEDS ORDERED: AMIODARONE 150 MG in DEXTROSE 5% 100 ML IV ONE (03:30)
[2018-12-16 03:40] LABS: BASOPHILS # (AUTO) 0.01 x10^3/uL (0-0.1); BASOPHILS % (AUTO) 0 % (0-1); EOSINOPHILS # (AUTO) 0.07 x10^3/uL (0-0.4); EOSINOPHILS % (AUTO) 1 % (1-7); LYMPHOCYTES # (AUTO) 2.19 x10^3/uL (1-3.4); LYMPHOCYTES % (AUTO) 39 % (22-44); MD NO; MEAN CORPUSCULAR HEMOGLOBIN 28.3 pg (27.5-34.5); MEAN CORPUSCULAR HGB CONC 33.6 g/dL (33.2-36.2); MEAN CORPUSCULAR VOLUME 84.3 fL (81-97); MEAN PLATELET VOLUME 6.9 fL (7.4-10.4); MONOCYTES % (AUTO) 7 % (2-9); NEUTROPHILS # (AUTO) 2.93 x10^3/uL (1.8-6.8); NEUTROPHILS % (AUTO) 52 % (42-75); PLATELET COUNT 180 x10^3/uL (130-400); RED BLOOD COUNT 5.37 x10^6/uL (4.38-5.82); RED CELL DISTRIBUTION WIDTH 14.7 % (9.4-14.8)
--- NOTE | 2018-12-16 03:46 | NUR ---
PT MEDICATED PER EMAR. PT TOLERATED WELL.
[2018-12-16 03:52] LABS: ALANINE AMINOTRANSFERASE 34 U/L (12-78); ALBUMIN 3.4 g/dL (3.4-5.0); ANION GAP 10 mmol/L (5-15); CALCIUM 7.8 mg/dL (8.5-10.1); CHLORIDE 112 mmol/L (98-107); CREATININE 0.77 mg/dL (0.7-1.3)
[2018-12-16 03:56] LABS: ALKALINE PHOSPHATASE 90 U/L (45-117); BILIRUBIN,TOTAL 0.5 mg/dL (0.2-1.0); TOTAL PROTEIN 7.7 g/dL (6.4-8.2); TROPONIN I 0.055 ng/mL (0.000-0.045)
--- NOTE | 2018-12-16 04:00 | NUR ---
PT BACK TO ROOM FROM CT NOW.
--- NOTE | 2018-12-16 04:17 | NUR ---
URINAL AT BEDSIDE.
[2018-12-16] MEDS ORDERED: ASPIRIN 325 MG TABLET PO PRN (04:30)
[2018-12-16] MEDS ORDERED: MAGNESIUM SULFATE 1 GM in SODIUM CHLORIDE 0.9% 50 ML IV ONE (04:30)
--- NOTE | 2018-12-16 04:45 | NUR ---
PT WAS AGITATED AT THIS TIME. SECURITY PAGED. PT STATES " I WANNA HAVE DRINK AND LEAVE HERE NOW." EDMD AT BEDSIDE AND AWARE OF PT'S AGITATION. MEDS GIVEN PER MD ORDERS. PT COOPERATIVE AND WILLING TO STAY IN [facility]. AWAITING ADMIT BED AT THIS TIME.
[2018-12-16] MEDS ORDERED: HEPARIN 5,000 UNITS/ML, 1ML ONE (04:51)
[2018-12-16] MEDS ORDERED: ASPIRIN 325 MG TABLET ONE (04:51)
[2018-12-16] MEDS ORDERED: HEPARIN 25,000 UNITS/500ML PMX 500 ML ONE (04:52)
[2018-12-16] MEDS ORDERED: LORazepam 2 MG/ML, 1ML ONE ×2 (04:52→08:46)
[2018-12-16] MEDS ORDERED: HEPARIN 5,000 UNITS/ML, 1ML IV ONE (05:00)
[2018-12-16] MEDS ORDERED: HEPARIN 25,000 UNITS/500ML PMX 500 ML IV PRN (05:00)
[2018-12-16] MEDS ORDERED: LORazepam 2 MG/ML, 1ML IVPush ONE (05:00)
--- NOTE | 2018-12-16 05:06 | NUR ---
PT MEDICATED PER EMAR. PT TOLERATED WELL. PT'S AOX4. RESPS EVEN AND UNLABORED.
[2018-12-16] MEDS ORDERED: POTASSIUM CHLORIDE 20 MEQ, MAGNESIUM SULFATE 1 GM, THIAMINE 200 MG, FOLIC ACID 1 MG, MV... IV SCH (05:30)
--- NOTE | 2018-12-16 05:58 | NUR ---
PT MOVED TO ROOM FOR SITTER AT THIS TIME. SITTER MONITORING PT FROM [facility] FOR SAFETY.
--- NOTE | 2018-12-16 06:00 | NUR ---
REPORT GIVEN TO KARO METZGER.
[2018-12-16] MEDS ORDERED: SODIUM CHLORIDE 0.9% 1,000 ML IV SCH (06:09)
[2018-12-16] MEDS ORDERED: DOCUSATE 100 MG CAPSULE PO PRN (06:30)
[2018-12-16] MEDS ORDERED: LORazepam 1MG TABLET PO PRN ×4 (06:30)
[2018-12-16] MEDS ORDERED: POLYETHYLENE GLYCOL 17 GM PACKET PO PRN (06:30)
[2018-12-16] MEDS ORDERED: LORazepam 2 MG/ML, 1ML IV PRN ×3 (06:30)
[2018-12-16] MEDS ORDERED: NITROGLYCERIN 0.4 MG BOTTLE (25 TABS) SL PRN ×2 (06:30)
[2018-12-16] MEDS ORDERED: ACETAMINOPHEN 325 MG TABLET PO PRN (06:30)
[2018-12-16] MEDS ORDERED: BISACODYL 10 MG SUPP PR PRN (06:30)
[2018-12-16] MEDS ORDERED: morphine SULFATE 10 MG/ML, 1ML IVPush PRN (06:30)
[2018-12-16] MEDS ORDERED: NITROGLYCERIN 0.4 MG/SPRAY SL PRN (06:30)
[2018-12-16] MEDS ORDERED: hydrALAzine 20 MG/ML, 1ML IVPush PRN (06:30)
[2018-12-16] MEDS ORDERED: ONDANSETRON 2MG/ML, 2ML IVPush PRN (06:30)
[2018-12-16] MEDS ORDERED: LORazepam 0.5MG TABLET PO PRN (06:30)
[2018-12-16] MEDS ORDERED: TRAZODONE 50MG TABLET PO PRN (06:30)
--- NOTE | 2018-12-16 06:40 | NUR ---
MARGARITO CARNEY AT BEDSIDE FOR ADMIT EVAL HEP GTT IS CURRENTLY INFUSING MAG UNFUSING WAS DONE . PT IS AWAKE CALM NO OTHER AGITATION NOTED
[2018-12-16] MEDS: D5%-0.9% NACL 1,000 ML IV SCH ×3 (06:49→22:37)
--- NOTE | 2018-12-16 07:09 | NUR ---
GIVEN REPORT TO ERUM METZGER
[2018-12-16 07:18] LABS: HEMOGLOBIN A1C 5.3 % (4.2-6.3)
[2018-12-16 07:33] LABS: TROPONIN I 0.063 ng/mL (0.000-0.045)
[2018-12-16] MEDS: ATORVASTATIN 80 MG TABLET PO SCH ×2 (07:34→20:33)
--- NOTE | 2018-12-16 07:35 | NUR ---
PER [facility] , HOLD AM DOSE OF LIPITOR NOW, CONTINUE PM ORDERED.
--- NOTE | 2018-12-16 07:45 | NUR ---
LATE ENTRY - PHARMACY CALLED FOR VERIFICATION OF MEDS SCHD.
[2018-12-16] MEDS ORDERED: POTASSIUM CHLORIDE 20 MEQ, MAGNESIUM SULFATE 1 GM, FOLIC ACID 1 MG, MVI ADULT 10 ML in ... IV SCH (08:01)
[2018-12-16] MEDS: LORazepam 2 MG/ML, 1ML IV PRN ×4 (08:52→22:45)
[2018-12-16] MEDS ORDERED: HYDROCHLOROTHIAZIDE PO SCH (09:00)
[2018-12-16] MEDS ORDERED: OLMESARTAN PO SCH (09:00)
[2018-12-16] MEDS ORDERED: [UNRECOGNIZED DRUG - OTHER] PO SCH (09:00)
[2018-12-16] MEDS: THIAMINE 100MG TABLET PO SCH (09:01)
[2018-12-16] MEDS: HYDROCHLOROTHIAZIDE 12.5 MG CAPSULE PO SCH (09:01)
[2018-12-16] MEDS: LOSARTAN 50MG TABLET PO SCH (09:01)
[2018-12-16] MEDS: PANTOPROZOLE 40MG TABLET PO SCH (09:02)
[2018-12-16] MEDS: FOLIC ACID 1 MG TABLET PO SCH (09:02)
[2018-12-16] MEDS: GABAPENTIN 100 MG CAPSULE PO SCH ×3 (09:24→20:33)
--- NOTE | 2018-12-16 10:20 | NUR ---
US AT BEDSIDE.
--- NOTE | 2018-12-16 12:21 | NUR ---
PT UP TO BEDSIDE CAMODE WITH ASSIST, STEADY GAIT. DENIES TREMORS, NAUSEA OR DIZZINESS. CHANGED LINENS AND GOWN. BACK TO [facility]. CP MONIOTRS IN PLACE.
--- NOTE | 2018-12-16 12:55 | NUR ---
PT HANDOFF REPORT OVER PHONE TO DOMENICA STRANGE.
[2018-12-16 14:04] VITALS: BP 163/106
[2018-12-16] MEDS ORDERED: METOPROLOL TARTRATE 25 MG TABLET ONE (14:31)
[2018-12-16] MEDS: METOPROLOL TARTRATE 25 MG TABLET PO SCH (14:39)
[2018-12-16 16:20] LABS: TROPONIN I 0.062 ng/mL (0.000-0.045)
[2018-12-16 19:48] VITALS: BP 173/105
[2018-12-17] VITALS (7 sets, daily range): BP systolic 155–188; BP diastolic 93–116
[2018-12-17] MEDS: ENALAPRILAT 1.25 MG/ML, 2ML IV PRN ×2 (01:06→12:29)
[2018-12-17] MEDS: METOPROLOL TARTRATE 25 MG TABLET PO SCH ×2 (05:24→16:03)
[2018-12-17 05:52] LABS: ANION GAP 6 mmol/L (5-15); CHLORIDE 108 mmol/L (98-107); CHOLESTEROL, TOTAL 151 mg/dL (140-239); CREATININE 0.81 mg/dL (0.7-1.3); TRIGLYCERIDES 116 mg/dL (50-200); VLDL CHOLESTEROL 23 mg/dL (0-25)
[2018-12-17 05:55] LABS: CHOL/HDL RATIO 3.2; HDL CHOL % 31 % (26-37); HDL CHOLESTEROL (DIRECT) 47 mg/dL (40-60); LDL CHOLESTEROL,CALCULATED 81 mg/dL (54-169); LDL/HDL RATIO 1.7 (0.5-3.0)
[2018-12-17 05:59] LABS: MEAN CORPUSCULAR HGB CONC 33.1 g/dL (33.2-36.2); MEAN CORPUSCULAR VOLUME 84.5 fL (81-97); RED BLOOD COUNT 4.41 x10^6/uL (4.38-5.82); RED CELL DISTRIBUTION WIDTH 14.6 % (9.4-14.8)
[2018-12-17 06:22] LABS: BASOPHILS # (AUTO) 0.01 x10^3/uL (0-0.1); BASOPHILS % (AUTO) 0 % (0-1); EOSINOPHILS # (AUTO) 0.08 x10^3/uL (0-0.4); EOSINOPHILS % (AUTO) 2 % (1-7); LYMPHOCYTES # (AUTO) 1.33 x10^3/uL (1-3.4); LYMPHOCYTES % (AUTO) 29 % (22-44); MD SCAN; MEAN PLATELET VOLUME 7.5 fL (7.4-10.4); MONOCYTES # (AUTO) 0.45 x10^3/uL (0.2-0.8); MONOCYTES % (AUTO) 10 % (2-9); NEUTROPHILS % (AUTO) 59 % (42-75); PLATELET COUNT 116 x10^3/uL (130-400)
[2018-12-17] MEDS: D5%-0.9% NACL 1,000 ML IV SCH (06:24)
[2018-12-17] MEDS ORDERED: LORazepam 1MG TABLET PO PRN ×4 (07:30)
[2018-12-17] MEDS ORDERED: LORazepam 0.5MG TABLET PO PRN (07:30)
[2018-12-17] MEDS: FOLIC ACID 1 MG TABLET PO SCH (09:21)
[2018-12-17] MEDS: GABAPENTIN 100 MG CAPSULE PO SCH ×3 (09:22→20:39)
[2018-12-17] MEDS: THIAMINE 100MG TABLET PO SCH (09:22)
[2018-12-17] MEDS: PANTOPROZOLE 40MG TABLET PO SCH (09:22)
[2018-12-17] MEDS: HYDROCHLOROTHIAZIDE 12.5 MG CAPSULE PO SCH (09:22)
[2018-12-17] MEDS: LOSARTAN 50MG TABLET PO SCH (09:22)
[2018-12-17 11:16] LABS: MICROSCOPIC AUTO
[2018-12-17 11:17] LABS: CULTURE INDICATED? YES
[2018-12-17] MEDS: SULFAMETH./TRIMETHOPRIM DS 800MG/160MG TABLET PO SCH ×2 (12:28→20:39)
[2018-12-18] MEDS ORDERED: LORazepam 2 MG/ML, 1ML IVPush ONE (01:30)
[2018-12-18 02:00] VITALS: BP 160/98
[2018-12-18] MEDS: METOPROLOL TARTRATE 25 MG TABLET PO SCH (05:33)
[2018-12-18 06:06] LABS: ANION GAP 8 mmol/L (5-15); CALCIUM 8.4 mg/dL (8.5-10.1); CHLORIDE 108 mmol/L (98-107); CREATININE 0.97 mg/dL (0.7-1.3)
[2018-12-18] MEDS ORDERED: HYDROCHLOROTHIAZIDE 25 MG TABLET PO SCH (09:00)
== END 2018-12-18 06:15 | disposition left against medical advice (07) | DRG 281 ==
LOC: ED 04:29 → EDIP 04:34 → 5SO 13:41
PROVIDERS: ADMIT Internal Medicine; ATTEND Internal Medicine
DX: I21.4 Non-ST elevation (NSTEMI) myocardial infarction (principal); F10.230 Alcohol dependence with withdrawal, uncomplicated; I47.2 Ventricular tachycardia; E78.5 Hyperlipidemia, unspecified; G62.9 Polyneuropathy, unspecified; K21.9 Gastro-esophageal reflux disease without esophagitis; Z87.891 Personal history of nicotine dependence; I10 Essential (primary) hypertension; Z79.84 Long term (current) use of oral hypoglycemic drugs; Z53.21 Procedure and treatment not carried out due to patient leaving prior to being seen by health care provider; Z88.8 Allergy status to other drugs, medicaments and biological substances; Z91.09 Other allergy status, other than to drugs and biological substances
CPT/HCPCS: 36415; 99285; J7042; 0399T; 70450; 71045; 80048; 80053; 80061; 80307; 81001; 82140; 82962; 83036; 83735; 84100; 84484; 85025; 85520; 87086; 93005; 93306; 96361; 96365; 96367; 96375; G0378; J1644; J3475; J3480; J0282; J2060; J7030

== ENCOUNTER 2018-12-20 22:35 | Inpatient (IN) | payer OTHER ==
[~2018-12-20] VITALS: Ht 190.5 cm; Wt 106.9 kg
[2018-12-20] MEDS ORDERED: PANTOPRAZOLE 80 MG in SODIUM CHLORIDE 0.9% 100 ML IV SCH (22:38)
[2018-12-20] MEDS ORDERED: SODIUM CHLORIDE 0.9% 1,000 ML IV ONE (22:38)
[2018-12-20] MEDS ORDERED: PANTOPRAZOLE 40 MG IV ONE (22:48)
[2018-12-20] MEDS ORDERED: ONDANSETRON 2MG/ML, 2ML ONE (22:48)
[2018-12-20] MEDS ORDERED: SODIUM CHLORIDE 0.9% 1,000ML IVBOLUS ONE (23:00)
[2018-12-20] MEDS ORDERED: SODIUM CHLORIDE FLUSH 10ML SYR IVF ONE (23:00)
[2018-12-20] MEDS ORDERED: ONDANSETRON 2MG/ML, 2ML IVPush ONE (23:00)
[2018-12-20] MEDS ORDERED: PANTOPRAZOLE 40 MG IV IVPush ONE (23:00)
--- NOTE | 2018-12-20 23:06 | NUR ---
PT CURRENTLY DENIES SI, PT STATES THAT HE WAS SOBER FOR 6 MONTHS THEN RELAPSED THE BEGINNING OF NOVEMBER, RECENT ADMISSION FOR [facility] WITHG D/C ON THE , HAS NOT TAKEN ANY OF HIS MEDICATIONS SINCE THEN. PT BELIGERANT AT TIMES, ST MONITO, IV'S STARTED AND MEDS GIVEN, SUCTION TO BEDSIDE.
--- NOTE | 2018-12-20 23:36 | NUR ---
IV INFUSING, NO FURTHER EMESIS SINCE ARRIVAL. ST MONITOR WITHOUT ECTOPY, SIDE RAILS UP TIMES TWO, CALL MARCELO IN REACH, SUCTION TO BEDSIDE
[2018-12-20 23:37] LABS: BASOPHILS # (AUTO) 0.01 x10^3/uL (0-0.1); BASOPHILS % (AUTO) 0 % (0-1); EOSINOPHILS % (AUTO) 0 % (1-7); LYMPHOCYTES # (AUTO) 2.13 x10^3/uL (1-3.4); LYMPHOCYTES % (AUTO) 25 % (22-44); MD NO; MEAN CORPUSCULAR HEMOGLOBIN 28.4 pg (27.5-34.5); MEAN CORPUSCULAR HGB CONC 33.6 g/dL (33.2-36.2); MEAN CORPUSCULAR VOLUME 84.6 fL (81-97); MEAN PLATELET VOLUME 6.9 fL (7.4-10.4); MONOCYTES # (AUTO) 0.47 x10^3/uL (0.2-0.8); MONOCYTES % (AUTO) 6 % (2-9); NEUTROPHILS % (AUTO) 69 % (42-75); PLATELET COUNT 202 x10^3/uL (130-400); RED BLOOD COUNT 5.36 x10^6/uL (4.38-5.82); RED CELL DISTRIBUTION WIDTH 15.7 % (9.4-14.8)
[2018-12-20 23:47] LABS: INTERNATIONAL NORMALIZED RATIO 1.07 (0.93-1.1); PROTHROMBIN TIME 11.2 Seconds (9.6-11.5)
[2018-12-20 23:48] LABS: ALANINE AMINOTRANSFERASE 81 U/L (12-78); ALBUMIN 3.5 g/dL (3.4-5.0); ANION GAP 9 mmol/L (5-15); CALCIUM 7.6 mg/dL (8.5-10.1); CHLORIDE 107 mmol/L (98-107)
[2018-12-20 23:51] LABS: ALKALINE PHOSPHATASE 100 U/L (45-117); BILIRUBIN,TOTAL 0.6 mg/dL (0.2-1.0); TOTAL PROTEIN 7.6 g/dL (6.4-8.2)
[2018-12-21] MEDS ORDERED: MAGNESIUM SULFATE 1 GM, THIAMINE 100 MG, FOLIC ACID 1 MG, MVI ADULT 10 ML in SODIUM CHL... IV ONE
--- NOTE | 2018-12-21 00:01 | NUR ---
PT BEDSIDE REPORT FROM ASPEN METZGER. THIS RN TO ASSUME CARE OF PT. NO IMMEDIATE NEEDS AT THIS TIME. IV INFUSIONS FLOWING APPROPRIATELY. AWAITING ADM.
[2018-12-21] MEDS ORDERED: LORazepam 2 MG/ML, 1ML ONE (00:15)
--- NOTE | 2018-12-21 00:15 | NUR ---
0015) PT VERY AGITATED, TACHYCARDIC, ATTEMTPING TO LEAVE, AWARE THAT WE NEED TO WAIT FOR HIM TO BE MORE SOBER AND CLEAR FOR SAFE DISCHARGE AND REMIND PT THE HE WAS REQUESTING ASSISTIANCE WITH [facility]OX AND AWARE THAT [facility] WILL NOT TAKE HIM AT THIS TIME, ALSO REMINDED THAT HE MADE STATEMENTS TO [facility] REGARDING WANTING TO , PT THEN STATES THAT IT IS HIS RIGHT TO LEAVE AND GET HIT BY A CAR, ASK IF THIS IS SUICIDAL STATEMENT AND PT DENIES, STATES MAKING A POINT. AWARE THAT WE CAN NOT LET HIM GO BASED ON THIS. PT REMAINS AGIATED AND UNCOOPERATIVE, DR LIM STATES THAT HE WANTS PT TO STAY GROSSLY UNSAFE FOR DISCHARGE, SECURITY CALLED AND PT COMPLIANT AT THIS TIME BACK TO BED. ATIVAN GIVEN PER ORDER.
[2018-12-21] MEDS ORDERED: LORazepam 2 MG/ML, 1ML IVPush PRN (00:30)
--- NOTE | 2018-12-21 00:31 | NUR ---
PT BECOMING MORE AGITATED AND HR TO 130'S. MD NOTIFIED AND ATIVAN ORDERED AND GIVEN BY CHRIS METZGER. PT IS ALTERED AND HAS A +ETOH AND UNSTEADY ON HIS FEET. PT IS UNCOOPERATIVE W/ STAFF AND STARTING TO BECOMING COMBATIVE. PT IS CONTINUOUSLY ATTEMPTING TO LEAVE AND BECOMING MORE AGGRAVATED W/ STAFF. PT IS UNSAFE FOR SELF AND STAFF. SECURITY CALLED AND PT IN 4 POINT RESTRAINTS AT THIS TIME PER MD REQUEST. PT IS ON L2K AT THIS TIME WELL, PER MD RAPHAEL.
--- NOTE | 2018-12-21 00:35 | NUR ---
PT AGAIN ESCALATING AND ATTEMTPING TO LEAVE, STATES TO NURSE AT BEDSIDE THAT "IF I LEAVE HERE IT WILL NOT BE SAFE", MD AWARE AND FEELS THAT PT NEEDS TO BE PLACED ON LEGAL FOR HIS SAFETY.
[2018-12-21] MEDS ORDERED: ENALAPRILAT 1.25 MG/ML, 2ML IVPush PRN (01:00)
[2018-12-21] MEDS ORDERED: HEPARIN 5,000 UNITS/ML, 1ML SQ SCH (01:00)
[2018-12-21] MEDS ORDERED: ONDANSETRON 2MG/ML, 2ML IVPush PRN (01:00)
--- NOTE | 2018-12-21 01:03 | NUR ---
PT IV INFUSION REQUESTED FROM PHARMACY. AWAITING MEDICATION.
--- NOTE | 2018-12-21 01:17 | NUR ---
ALTHOUGH RESTRAINED PT CONTINUES TO RIP MONITORING OFF. PT CAUTIONED AND EDUCATED ON REASONING FOR CONTINUED MONITORING. STATES "FUCK YOU, YOU DONT CONTROL ME."
[2018-12-21] MEDS: LORazepam 1MG TABLET PO SCH ×9 (01:30→19:30)
[2018-12-21 02:05] VITALS: BP 130/80
[2018-12-21] MEDS ORDERED: LORazepam 2 MG/ML, 1ML IV PRN ×3 (03:00)
[2018-12-21] MEDS: LORazepam 2 MG/ML, 1ML IV PRN ×3 (03:30→20:57)
[2018-12-21] MEDS: POTASSIUM CHLORIDE 20 MEQ, MAGNESIUM SULFATE 2 GM, THIAMINE 200 MG, MVI ADULT 10 ML, FO... IV SCH (03:30)
[2018-12-21] MEDS: PANTOPRAZOLE 40 MG IV IVPush SCH ×2 (05:08→16:59)
[2018-12-21 06:11] LABS: BASOPHILS # (AUTO) 0.02 x10^3/uL (0-0.1); BASOPHILS % (AUTO) 0 % (0-1); EOSINOPHILS # (AUTO) 0.02 x10^3/uL (0-0.4); EOSINOPHILS % (AUTO) 0 % (1-7); LYMPHOCYTES # (AUTO) 2.11 x10^3/uL (1-3.4); LYMPHOCYTES % (AUTO) 27 % (22-44); MD NO; MEAN CORPUSCULAR HEMOGLOBIN 28.5 pg (27.5-34.5); MEAN CORPUSCULAR HGB CONC 34.1 g/dL (33.2-36.2); MEAN CORPUSCULAR VOLUME 83.7 fL (81-97); MEAN PLATELET VOLUME 6.9 fL (7.4-10.4); MONOCYTES # (AUTO) 0.52 x10^3/uL (0.2-0.8); MONOCYTES % (AUTO) 7 % (2-9); NEUTROPHILS # (AUTO) 5.19 x10^3/uL (1.8-6.8); NEUTROPHILS % (AUTO) 66 % (42-75); PLATELET COUNT 174 x10^3/uL (130-400); RED BLOOD COUNT 4.79 x10^6/uL (4.38-5.82); RED CELL DISTRIBUTION WIDTH 15.6 % (9.4-14.8)
[2018-12-21 06:25] LABS: ALBUMIN 3.1 g/dL (3.4-5.0); ANION GAP 12 mmol/L (5-15); CALCIUM 7.4 mg/dL (8.5-10.1); CHLORIDE 110 mmol/L (98-107)
[2018-12-21 06:27] LABS: ALANINE AMINOTRANSFERASE 72 U/L (12-78); ALKALINE PHOSPHATASE 92 U/L (45-117); BILIRUBIN,TOTAL 0.7 mg/dL (0.2-1.0); CREATININE 0.88 mg/dL (0.7-1.3); TOTAL PROTEIN 6.8 g/dL (6.4-8.2)
[2018-12-21] MEDS: SODIUM CHLORIDE 0.9% 1,000 ML IV SCH ×3 (08:10→16:42)
[2018-12-21 08:29] VITALS: BP 131/83
[2018-12-21] MEDS ORDERED: PANTOPRAZOLE 40 MG IV IVPush SCH (09:00)
[2018-12-21 10:16] LABS: BASOPHILS # (AUTO) 0.03 x10^3/uL (0-0.1); BASOPHILS % (AUTO) 0 % (0-1); EOSINOPHILS # (AUTO) 0.04 x10^3/uL (0-0.4); EOSINOPHILS % (AUTO) 1 % (1-7); LYMPHOCYTES # (AUTO) 1.64 x10^3/uL (1-3.4); LYMPHOCYTES % (AUTO) 26 % (22-44); MD NO; MEAN CORPUSCULAR HEMOGLOBIN 28.7 pg (27.5-34.5); MEAN CORPUSCULAR HGB CONC 33.7 g/dL (33.2-36.2); MEAN CORPUSCULAR VOLUME 85.3 fL (81-97); MEAN PLATELET VOLUME 6.9 fL (7.4-10.4); MONOCYTES # (AUTO) 0.58 x10^3/uL (0.2-0.8); MONOCYTES % (AUTO) 9 % (2-9); NEUTROPHILS # (AUTO) 3.98 x10^3/uL (1.8-6.8); NEUTROPHILS % (AUTO) 64 % (42-75); PLATELET COUNT 148 x10^3/uL (130-400); RED BLOOD COUNT 4.52 x10^6/uL (4.38-5.82); RED CELL DISTRIBUTION WIDTH 16.3 % (9.4-14.8)
[2018-12-21] MEDS: THIAMINE 100MG TABLET PO SCH (11:37)
[2018-12-21] MEDS: OCTREOTIDE 500 MCG in SODIUM CHLORIDE 0.9% 249 ML IV SCH (11:37)
[2018-12-21] MEDS: HYDROCHLOROTHIAZIDE 12.5 MG CAPSULE PO SCH (11:38)
[2018-12-21] MEDS: LOSARTAN 50MG TABLET PO SCH (11:38)
[2018-12-21] MEDS: FOLIC ACID 1 MG TABLET PO SCH (11:45)
[2018-12-21 12:58] VITALS: BP 131/88
[2018-12-21] MEDS ORDERED: CEFTRIAXONE 1,000 MG IM SCH (15:00)
[2018-12-21 15:25] LABS: BASOPHILS # (AUTO) 0.04 x10^3/uL (0-0.1); BASOPHILS % (AUTO) 1 % (0-1); EOSINOPHILS # (AUTO) 0.03 x10^3/uL (0-0.4); EOSINOPHILS % (AUTO) 1 % (1-7); LYMPHOCYTES # (AUTO) 1.23 x10^3/uL (1-3.4); LYMPHOCYTES % (AUTO) 18 % (22-44); MD MORPH REVIEW ONLY; MEAN CORPUSCULAR HEMOGLOBIN 28.4 pg (27.5-34.5); MEAN CORPUSCULAR HGB CONC 33.1 g/dL (33.2-36.2); MEAN CORPUSCULAR VOLUME 85.5 fL (81-97); MEAN PLATELET VOLUME 7.8 fL (7.4-10.4); MONOCYTES # (AUTO) 0.59 x10^3/uL (0.2-0.8); MONOCYTES % (AUTO) 9 % (2-9); NEUTROPHILS % (AUTO) 72 % (42-75); PLATELET COUNT 142 x10^3/uL (130-400); RED BLOOD COUNT 4.73 x10^6/uL (4.38-5.82); RED CELL DISTRIBUTION WIDTH 15.9 % (9.4-14.8)
[2018-12-21 15:26] LABS: <PLATELET ESTIMATE> ADEQUATE; <PLT MORPHOLOGY> NORMAL PLT MORPH; <RBC MORPHOLOGY> NORMAL
[2018-12-21] MEDS: GABAPENTIN 100 MG CAPSULE PO SCH ×2 (16:59→20:57)
[2018-12-21] MEDS: CEFTRIAXONE PMX 1GM/50ML 50 ML IV SCH (16:59)
[2018-12-21 18:35] LABS: BASOPHILS # (AUTO) 0.02 x10^3/uL (0-0.1); BASOPHILS % (AUTO) 0 % (0-1); EOSINOPHILS # (AUTO) 0.01 x10^3/uL (0-0.4); EOSINOPHILS % (AUTO) 0 % (1-7); LYMPHOCYTES # (AUTO) 1.77 x10^3/uL (1-3.4); LYMPHOCYTES % (AUTO) 26 % (22-44); MD NO; MEAN CORPUSCULAR HEMOGLOBIN 28.7 pg (27.5-34.5); MEAN CORPUSCULAR HGB CONC 33.6 g/dL (33.2-36.2); MEAN CORPUSCULAR VOLUME 85.6 fL (81-97); MEAN PLATELET VOLUME 7.3 fL (7.4-10.4); MONOCYTES # (AUTO) 0.76 x10^3/uL (0.2-0.8); MONOCYTES % (AUTO) 11 % (2-9); NEUTROPHILS # (AUTO) 4.15 x10^3/uL (1.8-6.8); NEUTROPHILS % (AUTO) 62 % (42-75); PLATELET COUNT 131 x10^3/uL (130-400); RED BLOOD COUNT 4.44 x10^6/uL (4.38-5.82); RED CELL DISTRIBUTION WIDTH 15.5 % (9.4-14.8)
[2018-12-21 19:08] VITALS: BP 133/86
[2018-12-21] MEDS: CALCIUM CARBONATE 500 MG TAB.CHEW PO PRN (21:33)
[2018-12-21 22:23] LABS: BASOPHILS # (AUTO) 0.02 x10^3/uL (0-0.1); BASOPHILS % (AUTO) 0 % (0-1); EOSINOPHILS # (AUTO) 0.04 x10^3/uL (0-0.4); EOSINOPHILS % (AUTO) 1 % (1-7); LYMPHOCYTES # (AUTO) 1.74 x10^3/uL (1-3.4); LYMPHOCYTES % (AUTO) 29 % (22-44); MD NO; MEAN CORPUSCULAR HEMOGLOBIN 28.6 pg (27.5-34.5); MEAN CORPUSCULAR HGB CONC 33.6 g/dL (33.2-36.2); MEAN CORPUSCULAR VOLUME 85.2 fL (81-97); MEAN PLATELET VOLUME 7.3 fL (7.4-10.4); MONOCYTES # (AUTO) 0.73 x10^3/uL (0.2-0.8); MONOCYTES % (AUTO) 12 % (2-9); NEUTROPHILS # (AUTO) 3.38 x10^3/uL (1.8-6.8); NEUTROPHILS % (AUTO) 57 % (42-75); PLATELET COUNT 129 x10^3/uL (130-400); RED BLOOD COUNT 4.58 x10^6/uL (4.38-5.82); RED CELL DISTRIBUTION WIDTH 15.9 % (9.4-14.8)
[2018-12-22] MEDS: LORazepam 2 MG/ML, 1ML IV PRN ×3 (00:49→23:00)
[2018-12-22] MEDS: POTASSIUM CHLORIDE 20 MEQ, MAGNESIUM SULFATE 2 GM, THIAMINE 200 MG, MVI ADULT 10 ML, FO... IV SCH (01:10)
[2018-12-22 01:29] VITALS: BP 135/88
[2018-12-22 02:50] LABS: BASOPHILS # (AUTO) 0.03 x10^3/uL (0-0.1); BASOPHILS % (AUTO) 1 % (0-1); EOSINOPHILS # (AUTO) 0.06 x10^3/uL (0-0.4); EOSINOPHILS % (AUTO) 1 % (1-7); LYMPHOCYTES # (AUTO) 1.83 x10^3/uL (1-3.4); LYMPHOCYTES % (AUTO) 35 % (22-44); MD NO; MEAN CORPUSCULAR HEMOGLOBIN 28.7 pg (27.5-34.5); MEAN CORPUSCULAR HGB CONC 33.3 g/dL (33.2-36.2); MEAN PLATELET VOLUME 7.6 fL (7.4-10.4); MONOCYTES # (AUTO) 0.53 x10^3/uL (0.2-0.8); MONOCYTES % (AUTO) 10 % (2-9); NEUTROPHILS # (AUTO) 2.73 x10^3/uL (1.8-6.8); NEUTROPHILS % (AUTO) 53 % (42-75); PLATELET COUNT 122 x10^3/uL (130-400); RED CELL DISTRIBUTION WIDTH 15.5 % (9.4-14.8)
[2018-12-22] MEDS: SODIUM CHLORIDE 0.9% 1,000 ML IV SCH ×2 (05:16)
[2018-12-22] MEDS: OCTREOTIDE 500 MCG in SODIUM CHLORIDE 0.9% 249 ML IV SCH (05:50)
[2018-12-22] MEDS: PANTOPRAZOLE 40 MG IV IVPush SCH (05:50)
[2018-12-22 06:05] LABS: BASOPHILS # (AUTO) 0.03 x10^3/uL (0-0.1); BASOPHILS % (AUTO) 1 % (0-1); EOSINOPHILS # (AUTO) 0.08 x10^3/uL (0-0.4); EOSINOPHILS % (AUTO) 2 % (1-7); LYMPHOCYTES # (AUTO) 2.18 x10^3/uL (1-3.4); LYMPHOCYTES % (AUTO) 44 % (22-44); MD NO; MEAN CORPUSCULAR HGB CONC 32.8 g/dL (33.2-36.2); MEAN CORPUSCULAR VOLUME 85.5 fL (81-97); MEAN PLATELET VOLUME 7.6 fL (7.4-10.4); MONOCYTES # (AUTO) 0.55 x10^3/uL (0.2-0.8); MONOCYTES % (AUTO) 11 % (2-9); NEUTROPHILS # (AUTO) 2.15 x10^3/uL (1.8-6.8); NEUTROPHILS % (AUTO) 43 % (42-75); PLATELET COUNT 109 x10^3/uL (130-400); RED BLOOD COUNT 4.45 x10^6/uL (4.38-5.82); RED CELL DISTRIBUTION WIDTH 16.3 % (9.4-14.8)
[2018-12-22 06:59] LABS: ALANINE AMINOTRANSFERASE 52 U/L (12-78); ALBUMIN 2.9 g/dL (3.4-5.0); ANION GAP 4 mmol/L (5-15); CALCIUM 8.1 mg/dL (8.5-10.1); CHLORIDE 104 mmol/L (98-107)
[2018-12-22 07:01] LABS: ALKALINE PHOSPHATASE 84 U/L (45-117); BILIRUBIN,TOTAL 1.5 mg/dL (0.2-1.0); TOTAL PROTEIN 6.2 g/dL (6.4-8.2)
[2018-12-22 07:40] VITALS: BP 152/108
[2018-12-22] MEDS: FOLIC ACID 1 MG TABLET PO SCH (08:48)
[2018-12-22] MEDS: GABAPENTIN 100 MG CAPSULE PO SCH ×3 (08:48→20:14)
[2018-12-22] MEDS: THIAMINE 100MG TABLET PO SCH (08:48)
[2018-12-22] MEDS: HYDROCHLOROTHIAZIDE 12.5 MG CAPSULE PO SCH (08:48)
[2018-12-22] MEDS: LOSARTAN 50MG TABLET PO SCH (08:48)
[2018-12-22] MEDS ORDERED: FENTANYL PF 100 MCG/2ML ONE (13:13)
[2018-12-22] MEDS ORDERED: MIDAZOLAM 1 MG/ML, 2ML ONE (13:13)
[2018-12-22 15:19] VITALS: BP 145/101
[2018-12-22] MEDS: CEFTRIAXONE PMX 1GM/50ML 50 ML IV SCH (16:43)
[2018-12-22 18:55] VITALS: BP 139/94
[2018-12-22] MEDS: OMEPRAZOLE 20 MG CAPSULE.DR PO SCH (20:14)
[2018-12-22 20:30] VITALS: BP 166/101
[2018-12-22 22:45] VITALS: BP 169/97
[2018-12-23 00:41] VITALS: BP 131/89
[2018-12-23] MEDS: POTASSIUM CHLORIDE 20 MEQ, MAGNESIUM SULFATE 2 GM, THIAMINE 200 MG, MVI ADULT 10 ML, FO... IV SCH (01:18)
[2018-12-23] MEDS: LORazepam 2 MG/ML, 1ML IV PRN (01:18)
[2018-12-23 03:40] VITALS: BP 164/101
[2018-12-23] MEDS: CALCIUM CARBONATE 500 MG TAB.CHEW PO PRN (03:44)
[2018-12-23 04:05] VITALS: BP 158/91
[2018-12-23] MEDS: OMEPRAZOLE 20 MG CAPSULE.DR PO SCH (05:38)
[2018-12-23 06:49] VITALS: BP 155/101
[2018-12-23 08:17] LABS: MEAN CORPUSCULAR HEMOGLOBIN 28.2 pg (27.5-34.5); MEAN CORPUSCULAR HGB CONC 32.9 g/dL (33.2-36.2); MEAN CORPUSCULAR VOLUME 85.9 fL (81-97); RED BLOOD COUNT 4.37 x10^6/uL (4.38-5.82); RED CELL DISTRIBUTION WIDTH 15.6 % (9.4-14.8)
[2018-12-23 08:24] LABS: ANION GAP 5 mmol/L (5-15); CALCIUM 7.9 mg/dL (8.5-10.1); CHLORIDE 107 mmol/L (98-107)
[2018-12-23 08:25] LABS: CREATININE 0.79 mg/dL (0.7-1.3)
[2018-12-23 08:38] LABS: MEAN PLATELET VOLUME 8.1 fL (7.4-10.4); PLATELET COUNT 95 x10^3/uL (130-400)
[2018-12-23 08:39] LABS: MD SCAN
[2018-12-23 08:40] LABS: BASOPHILS # (AUTO) 0.02 x10^3/uL (0-0.1); BASOPHILS % (AUTO) 1 % (0-1); EOSINOPHILS # (AUTO) 0.07 x10^3/uL (0-0.4); EOSINOPHILS % (AUTO) 2 % (1-7); LYMPHOCYTES # (AUTO) 1.37 x10^3/uL (1-3.4); LYMPHOCYTES % (AUTO) 37 % (22-44); MONOCYTES # (AUTO) 0.39 x10^3/uL (0.2-0.8); MONOCYTES % (AUTO) 10 % (2-9); NEUTROPHILS # (AUTO) 1.88 x10^3/uL (1.8-6.8); NEUTROPHILS % (AUTO) 51 % (42-75)
[2018-12-23] MEDS ORDERED: HYDROCHLOROTHIAZIDE 12.5 MG CAPSULE PO SCH (09:00)
[2018-12-23] MEDS ORDERED: POTASSIUM CHLORIDE 20 MEQ TAB.ER.PRT PO ONE (09:00)
[2018-12-23] MEDS ORDERED: ONDA4VIA8 PO (09:53)
[2018-12-23] MEDS ORDERED: OMEP-110 PO (09:53)
[2018-12-23] MEDS ORDERED: FOLI-17 PO (09:53)
[2018-12-23] MEDS ORDERED: LORA-445 PO (09:53)
[2018-12-23] MEDS ORDERED: LORazepam 0.5MG TABLET PO ONE (10:00)
[2018-12-23] MEDS: FOLIC ACID 1 MG TABLET PO SCH (10:03)
[2018-12-23] MEDS: THIAMINE 100MG TABLET PO SCH (10:03)
[2018-12-23] MEDS: LOSARTAN 50MG TABLET PO SCH (10:03)
[2018-12-23] MEDS: GABAPENTIN 100 MG CAPSULE PO SCH (10:04)
== END 2018-12-23 10:24 | disposition home or self-care (01) | DRG 380 ==
LOC: ED 12-21 00:52 → EDIP 12-21 01:02 → 5SO 12-21 01:57 → 4WST 12-22 17:26
PROVIDERS: ADMIT Family Medicine; ATTEND Family Medicine
PROC: 0DJ08ZZ Inspection of Upper Intestinal Tract, Via Natural or Artificial Opening Endoscopic (ICD-10-PCS; principal; 2018-12-22 14:00)
DX: K22.70 Barrett's esophagus without dysplasia (principal); I21.4 Non-ST elevation (NSTEMI) myocardial infarction; F10.230 Alcohol dependence with withdrawal, uncomplicated; R45.851 Suicidal ideations; K29.21 Alcoholic gastritis with bleeding; I11.0 Hypertensive heart disease with heart failure; F10.229 Alcohol dependence with intoxication, unspecified; I25.2 Old myocardial infarction; K21.9 Gastro-esophageal reflux disease without esophagitis; K70.30 Alcoholic cirrhosis of liver without ascites; Z88.6 Allergy status to analgesic agent; Z88.8 Allergy status to other drugs, medicaments and biological substances; Z91.048 Other nonmedicinal substance allergy status
CPT/HCPCS: 36415; 99285; J7042; 76700; 80048; 80053; 80307; 83690; 83735; 85025; 85610; 85730; 86900; 96374; 96375; G0378; J0696; J2250; J2354; J2405; J3010; J3411; J3475; J3480; C9113; J2060; J7030; J7050

== ENCOUNTER 2018-12-26 10:43 | Inpatient (IN) | payer OTHER ==
[~2018-12-26] VITALS: Ht 185.4 cm; Wt 100.0 kg
[~2018-12-26 10:43] MED LIST changes: +LORA-445 PO; +ONDA4VIA8 PO
[2018-12-26] MEDS ORDERED: SODIUM CHLORIDE 0.9% 1,000ML IVBOLUS ONE (11:00)
--- NOTE | 2018-12-26 11:06 | NUR ---
PT'S NEIGHBOR CALLED CONCERNED ABOUT PT. PT WAS FOUND COVERED IN VOMIT AND ADMITTED TO DRINKING "A COUPLE BOTTLES" OF HARD ALCOHOL. PT IS RESPOSIVE TO VOICE BUT IS UNABLE TO ANSWER QUESTIONS APPROPRIATELY ATT. PT PLACED ON CONT SPO2, BP, AND PROGRAMMING ENGINEER.
[2018-12-26 11:33] LABS: ALBUMIN 3.7 g/dL (3.4-5.0); ANION GAP 13 mmol/L (5-15); CALCIUM 8.1 mg/dL (8.5-10.1); CHLORIDE 105 mmol/L (98-107); CREATININE 1.11 mg/dL (0.7-1.3)
[2018-12-26 11:47] LABS: BASOPHILS # (AUTO) 0.02 x10^3/uL (0-0.1); BASOPHILS % (AUTO) 0 % (0-1); EOSINOPHILS % (AUTO) 1 % (1-7); HEMOGRAM NOTE RECHECKED; LYMPHOCYTES % (AUTO) 30 % (22-44); MD NO; MEAN CORPUSCULAR HEMOGLOBIN 28.6 pg (27.5-34.5); MEAN CORPUSCULAR HGB CONC 33.4 g/dL (33.2-36.2); MEAN CORPUSCULAR VOLUME 85.7 fL (81-97); MEAN PLATELET VOLUME 6.8 fL (7.4-10.4); MONOCYTES # (AUTO) 0.29 x10^3/uL (0.2-0.8); MONOCYTES % (AUTO) 4 % (2-9); NEUTROPHILS # (AUTO) 4.37 x10^3/uL (1.8-6.8); NEUTROPHILS % (AUTO) 65 % (42-75); PLATELET COUNT 256 x10^3/uL (130-400); RED CELL DISTRIBUTION WIDTH 17.1 % (9.4-14.8)
[2018-12-26] MEDS ORDERED: POTASSIUM CHLORIDE 20 MEQ TAB.ER.PRT PO ONE (14:30)
--- NOTE | 2018-12-26 15:10 | NUR ---
PT FOUND AMBULATING SOMEWHAT STEADILY AROUND ED. PT IS UNABLE TO REPORT WHERE HE LIVES, "I LIVE IN [facility] IN AN APARTMENT." SPEECH SLURRED. PT RETURNED TO ROOM. IV DC'D. PT REQUESTING REFERAL TO DETOX FACILITY.
[2018-12-26] MEDS ORDERED: POTASSIUM CHLORIDE 20 MEQ TAB.ER.PRT ONE (15:20)
--- NOTE | 2018-12-26 15:23 | NUR ---
PT PROVIDED MEAL TRAY AND MEDICATED PER EMAR FOR HYPOKALEMIA, K+ 3.0
--- NOTE | 2018-12-26 15:40 | NUR ---
DISCUSSED POC WITH ERP. POC IS DC W/ TAXI VOUCHER TO DETOX FACILITY PER PT'S REQUEST. AWAITING DC INSTRUCTIONS.
--- NOTE | 2018-12-26 16:20 | NUR ---
RN TO BEDSIDE TO DISCUSS POC WITH PT. PT STATES "I'M SUICIDAL. I JUST WANT TO ". ERP AWARE. COMPUTER SECURITY SPECIALIST AWARE. AWAITING ERP EVAL FOR FURTHER POC
--- NOTE | 2018-12-26 16:43 | NUR ---
ERP AT BEDSIDE TO RE-EVALUATE. PT STATES HE "JUST DOESN'T HAVE ANYWHERE TO GO". POC IS DC PER ERP. PT SPEECH CLEAR; ALERT/ORIENTED, ABLE TO STAY AWAKE FOR CONVERSATION. PT PROVIDED CLEAN CLOTHING. TECH AT BS TO ASSIST IN DRESSING PT.
--- NOTE | 2018-12-26 17:02 | NUR ---
PT CALLED 911 FROM OWN PHONE IN ROOM REPORTING SI.
--- NOTE | 2018-12-26 17:11 | NUR ---
[employer] AT BEDSIDE. L2K INITIATED. TECH AT BEDSIDE TO GATHER PERSONAL BELONGINGS AND SECURE ROOM. SITTER REQUESTED
--- NOTE | 2018-12-26 17:17 | NUR ---
[employer] asked about patient being transfered to [facility] in [place] [phone]. Patient told [employer] that the facility said they would accept him if he could get there. [employer] is going to try and arrange transport to [facility]. [employer] will be in touch.
--- NOTE | 2018-12-26 17:31 | NUR ---
ROOM SECURE. ALL PERSONAL BELONGINS REMOVED FROM ROOM. SITTER PRESENT. PT A&OX4; +AMBULATORY. PT PWD; NON-TREMULOUS. DOZING INTERMITTENTLY.
--- NOTE | 2018-12-26 17:39 | NUR ---
PT W/ CO "CONVULSING", "IF I HAVE A SEIZURE ON YOUR WATCH YOU'LL BE IN BIG TROUBLE" "I NEED MEDS". PT ON SPO2/BP MONITORING. SITTER PRESENT. PT PWD; RR WNL, HR WNL; PT NON-TREMULOUS. ERP AWARE. NO CIWA ORDERS RECEIVED.
--- NOTE | 2018-12-26 18:56 | NUR ---
REPORT TO DOMENICA LOUISE
--- NOTE | 2018-12-26 19:07 | NUR ---
REPORT REC. SITTER OUTSIDE ROOM.
--- NOTE | 2018-12-26 19:27 | NUR ---
RESTING QUIETLY, HR 72, NO TREMORS NOTED.
--- NOTE | 2018-12-26 19:37 | NUR ---
PT PLACED ON MONITOR, ST AT THIS TIME, 112, NO FINE TREMOR NOTED, DRAMATIC WAVING OF ARMS DURING ASSESSMENT, PT ASKING FOR ATIVAN, DR ISABEL AWARE AND AGREES THAT PT WILL MOST LIKELY DETOX DUE TO SEVEREITY OF ETOH ABUSE, PT ALSO HAS WHAT APPEARS TO BE COFFEE GROUND EMESIS ON CHEST, DR ISABEL AWARE THAT THIS WAS THE SITUATION LAST WEEK WILL RESTART IV, MEDICATE PER ORDER
[2018-12-26] MEDS ORDERED: ONDANSETRON 2MG/ML, 2ML ONE (19:40)
[2018-12-26] MEDS ORDERED: PANTOPRAZOLE 40 MG IV ONE (19:40)
[2018-12-26] MEDS ORDERED: SODIUM CHLORIDE 0.9% 1,000 ML IV ONE (19:41)
[2018-12-26] MEDS ORDERED: LORazepam 2 MG/ML, 1ML ONE (19:41)
[2018-12-26] MEDS ORDERED: SODIUM CHLORIDE FLUSH 10ML SYR IVF PRN (20:00)
[2018-12-26] MEDS ORDERED: PANTOPRAZOLE 40 MG IV IVPush ONE (20:00)
[2018-12-26] MEDS ORDERED: ONDANSETRON 2MG/ML, 2ML IM ONE (20:00)
[2018-12-26] MEDS: LORazepam 2 MG/ML, 1ML IVPush PRN ×2 (20:02→22:20)
[2018-12-26 20:33] VITALS: BP 142/90
[2018-12-26] MEDS ORDERED: ACETAMINOPHEN 325 MG TABLET PO PRN (22:30)
[2018-12-26] MEDS ORDERED: IBUPROFEN 600 MG TABLET PO PRN (22:30)
[2018-12-26] MEDS ORDERED: LORazepam 1MG TABLET PO PRN ×2 (22:30)
[2018-12-26] MEDS ORDERED: LORazepam 2 MG/ML, 1ML IV PRN ×5 (22:30)
[2018-12-26] MEDS ORDERED: LORazepam 0.5MG TABLET PO PRN (22:30)
[2018-12-26] MEDS ORDERED: DOCUSATE 100 MG CAPSULE PO PRN (22:30)
[2018-12-27] MEDS: THIAMINE 100MG TABLET PO SCH ×2 (00:29→09:15)
[2018-12-27] MEDS: POTASSIUM CHLORIDE 40 MEQ, MVI ADULT 10 ML, FOLIC ACID 1 MG, MAGNESIUM SULFATE 1 GM in ... IV SCH (00:39)
[2018-12-27 00:45] VITALS: BP 161/98
[2018-12-27 02:22] VITALS: BP 134/118
[2018-12-27] MEDS: LORazepam 1MG TABLET PO PRN ×4 (02:36→21:49)
[2018-12-27] MEDS: ONDANSETRON 2MG/ML, 2ML IV PRN (02:36)
[2018-12-27 04:20] LABS: ALANINE AMINOTRANSFERASE 125 U/L (12-78); ALBUMIN 3.2 g/dL (3.4-5.0); ANION GAP 7 mmol/L (5-15); CALCIUM 7.9 mg/dL (8.5-10.1); CHLORIDE 107 mmol/L (98-107); CREATININE 0.87 mg/dL (0.7-1.3)
[2018-12-27 04:22] LABS: ALKALINE PHOSPHATASE 86 U/L (45-117); BILIRUBIN,TOTAL 0.9 mg/dL (0.2-1.0); TOTAL PROTEIN 6.6 g/dL (6.4-8.2)
[2018-12-27 04:32] LABS: BASOPHILS # (AUTO) 0.03 x10^3/uL (0-0.1); BASOPHILS % (AUTO) 1 % (0-1); EOSINOPHILS # (AUTO) 0.04 x10^3/uL (0-0.4); EOSINOPHILS % (AUTO) 1 % (1-7); LYMPHOCYTES # (AUTO) 2.55 x10^3/uL (1-3.4); LYMPHOCYTES % (AUTO) 49 % (22-44); MD NO; MEAN CORPUSCULAR HGB CONC 32.4 g/dL (33.2-36.2); MEAN CORPUSCULAR VOLUME 86.5 fL (81-97); MEAN PLATELET VOLUME 7.3 fL (7.4-10.4); MONOCYTES # (AUTO) 0.66 x10^3/uL (0.2-0.8); MONOCYTES % (AUTO) 13 % (2-9); NEUTROPHILS # (AUTO) 1.91 x10^3/uL (1.8-6.8); NEUTROPHILS % (AUTO) 37 % (42-75); PLATELET COUNT 188 x10^3/uL (130-400); RED CELL DISTRIBUTION WIDTH 17.9 % (9.4-14.8)
[2018-12-27] MEDS: OMEPRAZOLE 20 MG CAPSULE.DR PO SCH ×2 (05:03→21:49)
[2018-12-27 07:53] VITALS: BP 165/109
[2018-12-27] MEDS ORDERED: TEMPLATE NON-FORMULARY MED. (Metformin Hcl** (Metformin Hcl Er**) 500 MG) PO SCH (09:00)
[2018-12-27] MEDS: LOSARTAN 50MG TABLET PO SCH (09:14)
[2018-12-27] MEDS: MULTIVITAMINS/MINERALS TABLET PO SCH (09:15)
[2018-12-27] MEDS: FOLIC ACID 1 MG TABLET PO SCH (09:15)
[2018-12-27] MEDS: GABAPENTIN 100 MG CAPSULE PO SCH ×3 (09:15→21:49)
[2018-12-27] MEDS: HYDROCHLOROTHIAZIDE 12.5 MG CAPSULE PO SCH (09:15)
[2018-12-27] MEDS ORDERED: MAGNESIUM OXIDE 400 MG TABLET PO ONE (10:00)
[2018-12-27] MEDS ORDERED: POTASSIUM CHLORIDE 20 MEQ TAB.ER.PRT PO ONE (10:00)
[2018-12-27 12:47] VITALS: BP 176/97
[2018-12-27] MEDS: SODIUM CHLORIDE 0.9% 1,000 ML IV SCH (17:00)
[2018-12-27 19:36] VITALS: BP 154/102
[2018-12-27] MEDS ORDERED: TRAZODONE 50MG TABLET PO SCH (21:00)
[2018-12-28] MEDS: POTASSIUM CHLORIDE 40 MEQ, MVI ADULT 10 ML, FOLIC ACID 1 MG, MAGNESIUM SULFATE 1 GM in ... IV SCH (00:51)
[2018-12-28 02:00] VITALS: BP 188/100
[2018-12-28 04:31] VITALS: BP 153/84
[2018-12-28] MEDS: OMEPRAZOLE 20 MG CAPSULE.DR PO SCH (06:25)
[2018-12-28] MEDS: ONDANSETRON 2MG/ML, 2ML IV PRN (06:25)
[2018-12-28 08:07] LABS: BASOPHILS # (AUTO) 0.01 x10^3/uL (0-0.1); BASOPHILS % (AUTO) 0 % (0-1); EOSINOPHILS # (AUTO) 0.09 x10^3/uL (0-0.4); EOSINOPHILS % (AUTO) 2 % (1-7); LYMPHOCYTES # (AUTO) 1.39 x10^3/uL (1-3.4); LYMPHOCYTES % (AUTO) 34 % (22-44); MD NO; MEAN CORPUSCULAR HGB CONC 32.5 g/dL (33.2-36.2); MEAN CORPUSCULAR VOLUME 85.9 fL (81-97); MEAN PLATELET VOLUME 7.7 fL (7.4-10.4); MONOCYTES # (AUTO) 0.44 x10^3/uL (0.2-0.8); MONOCYTES % (AUTO) 11 % (2-9); NEUTROPHILS # (AUTO) 2.16 x10^3/uL (1.8-6.8); NEUTROPHILS % (AUTO) 53 % (42-75); PLATELET COUNT 108 x10^3/uL (130-400); RED BLOOD COUNT 4.32 x10^6/uL (4.38-5.82); RED CELL DISTRIBUTION WIDTH 16.7 % (9.4-14.8)
[2018-12-28 08:19] LABS: ALANINE AMINOTRANSFERASE 82 U/L (12-78); ALBUMIN 2.9 g/dL (3.4-5.0); ANION GAP 5 mmol/L (5-15); CALCIUM 8.1 mg/dL (8.5-10.1); CHLORIDE 104 mmol/L (98-107); CREATININE 0.93 mg/dL (0.7-1.3)
[2018-12-28 08:21] LABS: ALKALINE PHOSPHATASE 85 U/L (45-117); BILIRUBIN,TOTAL 1.3 mg/dL (0.2-1.0)
[2018-12-28 08:24] VITALS: BP 152/108
[2018-12-28] MEDS: FOLIC ACID 1 MG TABLET PO SCH (09:04)
[2018-12-28] MEDS: MULTIVITAMINS/MINERALS TABLET PO SCH (09:04)
[2018-12-28] MEDS: THIAMINE 100MG TABLET PO SCH (09:04)
[2018-12-28] MEDS: GABAPENTIN 100 MG CAPSULE PO SCH (09:04)
[2018-12-28] MEDS: LOSARTAN 50MG TABLET PO SCH (09:04)
[2018-12-28] MEDS: HYDROCHLOROTHIAZIDE 12.5 MG CAPSULE PO SCH (09:05)
[2018-12-28] MEDS: SODIUM CHLORIDE 0.9% 1,000 ML IV SCH (11:00)
[2018-12-28 13:39] VITALS: BP 156/103
== END 2018-12-28 17:25 | disposition left against medical advice (07) | DRG 894 ==
LOC: ED 11:31 → 4WST 20:24
PROVIDERS: ADMIT Internal Medicine; ATTEND Internal Medicine
DX: F10.221 Alcohol dependence with intoxication delirium (principal); F33.2 Major depressive disorder, recurrent severe without psychotic features; F10.230 Alcohol dependence with withdrawal, uncomplicated; J44.9 Chronic obstructive pulmonary disease, unspecified; Y90.8 Blood alcohol level of 240 mg/100 ml or more; K21.9 Gastro-esophageal reflux disease without esophagitis; I10 Essential (primary) hypertension; E87.6 Hypokalemia; E83.42 Hypomagnesemia; K22.70 Barrett's esophagus without dysplasia; Z79.899 Other long term (current) drug therapy; Z53.21 Procedure and treatment not carried out due to patient leaving prior to being seen by health care provider
CPT/HCPCS: 36415; 99285; J7042; 70450; 80048; 80053; 80307; 82040; 83735; 84100; 85025; 93005; 96360; 96361; G0378; J2405; J3475; J3480; C9113; J2060; J7030

== ENCOUNTER 2019-02-01 21:36 | Emergency (ER) | payer OTHER ==
[~2019-02-01] VITALS: Ht 185.4 cm; Wt 107.0 kg
[2019-02-01 21:44] VITALS: BP 145/91
--- NOTE | 2019-02-01 21:58 | NUR ---
PT WANTS TO STOP DRINKING UNK TIME OF LAST DRINK
[2019-02-01 22:16] LABS: BASOPHILS # (AUTO) 0.02 x10^3/uL (0-0.1); BASOPHILS % (AUTO) 0 % (0-1); EOSINOPHILS % (AUTO) 0 % (1-7); LYMPHOCYTES # (AUTO) 2.53 x10^3/uL (1-3.4); LYMPHOCYTES % (AUTO) 32 % (22-44); MD NO; MEAN CORPUSCULAR HEMOGLOBIN 28.4 pg (27.5-34.5); MEAN CORPUSCULAR HGB CONC 33.6 g/dL (33.2-36.2); MEAN CORPUSCULAR VOLUME 84.6 fL (81-97); MEAN PLATELET VOLUME 7.7 fL (7.4-10.4); MONOCYTES # (AUTO) 0.49 x10^3/uL (0.2-0.8); MONOCYTES % (AUTO) 6 % (2-9); NEUTROPHILS # (AUTO) 4.92 x10^3/uL (1.8-6.8); NEUTROPHILS % (AUTO) 62 % (42-75); PLATELET COUNT 216 x10^3/uL (130-400); RED BLOOD COUNT 5.42 x10^6/uL (4.38-5.82); RED CELL DISTRIBUTION WIDTH 18.1 % (9.4-14.8)
[2019-02-01 22:27] LABS: ALANINE AMINOTRANSFERASE 46 U/L (12-78); ALBUMIN 4.1 g/dL (3.4-5.0); ANION GAP 14 mmol/L (5-15); CALCIUM 8.7 mg/dL (8.5-10.1); CHLORIDE 107 mmol/L (98-107); CREATININE 1.24 mg/dL (0.7-1.3)
[2019-02-01 22:31] LABS: ALKALINE PHOSPHATASE 84 U/L (45-117); BILIRUBIN,TOTAL 0.5 mg/dL (0.2-1.0)
== END 2019-02-01 22:40 | disposition left against medical advice (07) ==
LOC: ED 22:06
DX: F10.120 Alcohol abuse with intoxication, uncomplicated (principal); Z72.9 Problem related to lifestyle, unspecified; K21.9 Gastro-esophageal reflux disease without esophagitis; I10 Essential (primary) hypertension
CPT/HCPCS: 36415; 80053; 80307; 82962; 85025; 99283

== ENCOUNTER 2019-02-05 01:22 | Emergency (ER) | payer OTHER ==
[~2019-02-05] VITALS: Ht 182.9 cm; Wt 250.0 kg
[~2019-02-05 01:22] MED LIST changes: +ONDA4VIA60 PO; -ONDA4VIA8 PO
[2019-02-05 01:45] VITALS: BP 144/76
--- NOTE | 2019-02-05 01:52 | NUR ---
BRANDIE clarke d/t ETOH detox pt is well known this dept. pt stated " I need [facility] for etoh detox" pt stated pt was drinking alcohol all day long and now decided for transfer . pt is on monitor ST HR is up to 110 aaox4 denied pain at this time left eye has yellow crust looks like conjuntivitis notified to
[2019-02-05] MEDS ORDERED: THIAMINE 100MG TABLET ONE (01:56)
[2019-02-05] MEDS ORDERED: MULTIVITAMIN 1 TABLET PO ONE (02:00)
[2019-02-05] MEDS ORDERED: THIAMINE 100MG TABLET PO ONE (02:00)
[2019-02-05] MEDS ORDERED: POLYTRIM OPHTH 10ML EACHEYE STA (02:02)
[2019-02-05 02:08] LABS: BASOPHILS # (AUTO) 0.01 x10^3/uL (0-0.1); BASOPHILS % (AUTO) 0 % (0-1); EOSINOPHILS # (AUTO) 0.07 x10^3/uL (0-0.4); EOSINOPHILS % (AUTO) 1 % (1-7); LYMPHOCYTES # (AUTO) 3.01 x10^3/uL (1-3.4); LYMPHOCYTES % (AUTO) 42 % (22-44); MD NO; MEAN CORPUSCULAR HEMOGLOBIN 28.6 pg (27.5-34.5); MEAN CORPUSCULAR HGB CONC 33.8 g/dL (33.2-36.2); MEAN CORPUSCULAR VOLUME 84.6 fL (81-97); MEAN PLATELET VOLUME 6.9 fL (7.4-10.4); MONOCYTES # (AUTO) 0.49 x10^3/uL (0.2-0.8); MONOCYTES % (AUTO) 7 % (2-9); NEUTROPHILS # (AUTO) 3.67 x10^3/uL (1.8-6.8); NEUTROPHILS % (AUTO) 51 % (42-75); PLATELET COUNT 154 x10^3/uL (130-400); RED BLOOD COUNT 4.85 x10^6/uL (4.38-5.82); RED CELL DISTRIBUTION WIDTH 17.5 % (9.4-14.8)
[2019-02-05 02:16] LABS: ALANINE AMINOTRANSFERASE 36 U/L (12-78); ALBUMIN 3.7 g/dL (3.4-5.0); ANION GAP 16 mmol/L (5-15); CALCIUM 8.5 mg/dL (8.5-10.1); CHLORIDE 102 mmol/L (98-107)
[2019-02-05 02:19] LABS: ALKALINE PHOSPHATASE 83 U/L (45-117); CREATININE 0.92 mg/dL (0.7-1.3); TOTAL PROTEIN 7.5 g/dL (6.4-8.2)
== END 2019-02-05 02:48 | disposition home or self-care (01) ==
LOC: ED 01:25
DX: F10.220 Alcohol dependence with intoxication, uncomplicated (principal); H10.33 Unspecified acute conjunctivitis, bilateral; I10 Essential (primary) hypertension; E11.9 Type 2 diabetes mellitus without complications
CPT/HCPCS: 36415; 80053; 83690; 85025; 99283

== ENCOUNTER 2019-03-05 16:57 | Emergency (ER) | payer OTHER ==
[~2019-03-05] VITALS: Ht 190.5 cm; Wt 109.0 kg
--- NOTE | 2019-03-05 17:35 | NUR ---
PATIENT BIB FRIEND FROM HOME FOR ETOH AND SI WITH PLAN TO "CUT ARTERIES". PATIENT C/O HEAD PAIN, PATIENT DOESN'T REMEMBER FALLING, NO HEAD CONTUSION NOTED. PATIENT DROWSY UPON INITIAL ASSESSMENT, RESPONDS TO VOICE. A+OX4. PATIENT ON 88% RA. PATIENT NOW 98% 5L NC. PATIENT STATING "JUST LET ME ". ALL SAFETY MEASURES IN PLACE, PATIENT ON ORTHOTICS PROSTHETICS ASSISTANT. FRIEND AT BEDSIDE. AWAITING MD ORDERS AT THIS TIME.
--- NOTE | 2019-03-05 17:58 | NUR ---
PATIENT TO CT VIA TAMIKO FAIRCHILD NOTED.
--- NOTE | 2019-03-05 18:12 | NUR ---
PATIENT BACK FROM CT, TRANSFERRED TO ROOM 38 VIA GURNEY. PATIENT ON ALARM INVESTIGATOR, HR 112. LABS DRAWN. ALL SAFETY MEASURES IN PLACE, SITTER OUTSIDE DOORWAY WITH PATIENT IN SIGHT, VS UPDATED IN CHART, FRIEND AT BEDSIDE. AWAITING RESULTS. NO ADDITIONAL NEEDS AT THIS TIME.
--- NOTE | 2019-03-05 18:14 | NUR ---
UNKNOWN LAST DRINK OF ALCOHOL PER PATIENT.
--- NOTE | 2019-03-05 18:16 | NUR ---
PATIENT PROVIDED URINAL, UNABLE TO URINATE AT THIS TIME.
[2019-03-05 18:29] LABS: ALBUMIN 3.9 g/dL (3.4-5.0); ANION GAP 14 mmol/L (5-15); CALCIUM 8.6 mg/dL (8.5-10.1); CHLORIDE 109 mmol/L (98-107); SALICYLATE LEVEL < 1.7 mg/dL (2.8-20.0)
[2019-03-05 18:31] LABS: ALANINE AMINOTRANSFERASE 56 U/L (12-78); ALKALINE PHOSPHATASE 71 U/L (45-117); BILIRUBIN,TOTAL 0.4 mg/dL (0.2-1.0); CREATININE 1.17 mg/dL (0.7-1.3); TOTAL PROTEIN 7.9 g/dL (6.4-8.2)
[2019-03-05 18:34] LABS: BASOPHILS # (AUTO) 0.02 x10^3/uL (0-0.1); BASOPHILS % (AUTO) 0 % (0-1); EOSINOPHILS # (AUTO) 0.01 x10^3/uL (0-0.4); EOSINOPHILS % (AUTO) 0 % (1-7); LYMPHOCYTES # (AUTO) 2.88 x10^3/uL (1-3.4); LYMPHOCYTES % (AUTO) 27 % (22-44); MD NO; MEAN CORPUSCULAR HEMOGLOBIN 28.8 pg (27.5-34.5); MEAN CORPUSCULAR HGB CONC 33.5 g/dL (33.2-36.2); MEAN CORPUSCULAR VOLUME 85.9 fL (81-97); MEAN PLATELET VOLUME 7.8 fL (7.4-10.4); MONOCYTES # (AUTO) 0.38 x10^3/uL (0.2-0.8); MONOCYTES % (AUTO) 4 % (2-9); NEUTROPHILS # (AUTO) 7.22 x10^3/uL (1.8-6.8); NEUTROPHILS % (AUTO) 69 % (42-75); PLATELET COUNT 237 x10^3/uL (130-400); RED BLOOD COUNT 5.23 x10^6/uL (4.38-5.82); RED CELL DISTRIBUTION WIDTH 16.9 % (9.4-14.8)
[2019-03-05 18:42] LABS: ACETAMINOPHEN < 2 mcg/mL (10-30)
[2019-03-05] MEDS ORDERED: LORazepam 2 MG/ML, 1ML ONE ×2 (18:49→20:40)
--- NOTE | 2019-03-05 18:52 | NUR ---
PATIENT AGGITATED, STATING "I AM HAVING WITHDRAWALS", MD NOTIFIED, ATIVAN ADMINISTERED PER MD ORDER. VS UPDATED IN CHART.
[2019-03-05] MEDS ORDERED: MULT-717 PO (19:22)
--- NOTE | 2019-03-05 20:17 | NUR ---
MD AT BEDSIDE, PATIENT TO BE ADMITTED. FAMILY/PATIENT UPDATED ON POC.
[2019-03-05 20:44] VITALS: BP 141/80
--- NOTE | 2019-03-05 20:44 | NUR ---
PATIENT AGGITATED, MD AWARE. MEDICATIONS ADMINISTERED PER ERP ORDER. ADMIT MD AT BEDSIDE. VS UPDATD IN CHART, NAD NOTED AT THIS TIME, A+OX4.
--- NOTE | 2019-03-05 20:57 | NUR ---
PATIENT WANTING TO LEAVE AMA, NOT A LEGAL HOLD. PATIENT AGREED TO LET RN DC IV PRIOR TO LEAVING, AMBULATORY WITH STEADY GAIT TO DOOR OUTSIDE, A+OX4. FRIEND TO DRIVE PATIENT HOME FOR SAFE DC.
[2019-03-05] MEDS ORDERED: LORazepam 2 MG/ML, 1ML IVPush ONE ×2 (21:00)
== END 2019-03-05 21:03 ==
LOC: ED 17:23 → EDIP 19:53 → UNDOADMIN 19:53 → ED 20:58
DX: F10.10 Alcohol abuse, uncomplicated (principal); I10 Essential (primary) hypertension
CPT/HCPCS: 36415; 70450; 80053; 80307; 80329; 82977; 85025; 96374; 96376; 99284; J2060; G0480

== ENCOUNTER 2019-03-08 17:18 | Inpatient (IN) | payer OTHER ==
[~2019-03-08] VITALS: Ht 190.5 cm; Wt 110.0 kg
[~2019-03-08 17:18] MED LIST changes: +MULT-717 PO
--- NOTE | 2019-03-08 17:25 | NUR ---
PT BIB [facility] FOR ETOH. PT WAS FOUND IN APARTMENT ON FLOOR BY [facility] HEAVILY INTOXICATED. C COLLAR PLACED BY [facility] AND PT REFUSING TO WEAR IT. PT COVERED IN FECES AND URINE WITH VERY STRONG ODOR. PT UNABLE TO TELL ME WHERE HE IS AT.
[2019-03-08 17:52] LABS: BASOPHILS # (AUTO) 0.02 x10^3/uL (0-0.1); BASOPHILS % (AUTO) 0 % (0-1); EOSINOPHILS # (AUTO) 0.09 x10^3/uL (0-0.4); EOSINOPHILS % (AUTO) 1 % (1-7); LYMPHOCYTES # (AUTO) 3.15 x10^3/uL (1-3.4); LYMPHOCYTES % (AUTO) 40 % (22-44); MD NO; MEAN CORPUSCULAR HEMOGLOBIN 28.6 pg (27.5-34.5); MEAN CORPUSCULAR HGB CONC 33.5 g/dL (33.2-36.2); MEAN CORPUSCULAR VOLUME 85.5 fL (81-97); MEAN PLATELET VOLUME 7.3 fL (7.4-10.4); MONOCYTES # (AUTO) 0.46 x10^3/uL (0.2-0.8); MONOCYTES % (AUTO) 6 % (2-9); NEUTROPHILS # (AUTO) 4.07 x10^3/uL (1.8-6.8); NEUTROPHILS % (AUTO) 52 % (42-75); PLATELET COUNT 185 x10^3/uL (130-400); RED BLOOD COUNT 5.01 x10^6/uL (4.38-5.82); RED CELL DISTRIBUTION WIDTH 17.2 % (9.4-14.8)
[2019-03-08] MEDS ORDERED: PANTOPRAZOLE 80 MG in SODIUM CHLORIDE 0.9% 100 ML IV SCH (17:53)
[2019-03-08] MEDS ORDERED: PANTOPRAZOLE 80 MG in SODIUM CHLORIDE 0.9% 50 ML IVPB ONE (17:53)
[2019-03-08] MEDS ORDERED: SODIUM CHLORIDE FLUSH 10ML SYR IVF ONE (18:00)
[2019-03-08] MEDS ORDERED: SODIUM CHLORIDE 0.9% 1,000ML IVBOLUS ONE (18:00)
[2019-03-08] MEDS ORDERED: FAMOTIDINE 20 MG/2 ML IVPush ONE (18:00)
--- NOTE | 2019-03-08 18:00 | NUR ---
PT REFUSED TO WEAR C -COLLAR AND WRIPPED C-COLLAR OFF.
[2019-03-08 18:04] LABS: ALBUMIN 3.8 g/dL (3.4-5.0); ANION GAP 10 mmol/L (5-15); CALCIUM 8.5 mg/dL (8.5-10.1); CHLORIDE 100 mmol/L (98-107); CREATININE 1.05 mg/dL (0.7-1.3)
[2019-03-08] MEDS ORDERED: FAMOTIDINE 20 MG/2 ML ONE (18:28)
[2019-03-08] MEDS ORDERED: THIAMINE 100 MG in SODIUM CHLORIDE 0.9% 50 ML IV SCH (18:30)
--- NOTE | 2019-03-08 18:45 | NUR ---
pt taken to ct scan.
--- NOTE | 2019-03-08 19:09 | NUR ---
PT BACK FROM CT AND REPORT GIVEN TO KATIE METZGER.
--- NOTE | 2019-03-08 19:23 | NUR ---
PT IN NAD VSS ASSUMED CARE AT THIS TIME
[2019-03-08] MEDS ORDERED: OMNIPAQUE 350 MG/ML, 100ML BOTTLE ONE (19:28)
--- NOTE | 2019-03-08 19:30 | NUR ---
AWAITING ADMIT BED
[2019-03-08] MEDS: PANTOPRAZOLE 80 MG in SODIUM CHLORIDE 0.9% 100 ML IV SCH (20:10)
[2019-03-08] MEDS ORDERED: hydrALAzine 20 MG/ML, 1ML IVPush PRN (20:30)
[2019-03-08] MEDS ORDERED: LORazepam 0.5MG TABLET PO PRN (20:30)
[2019-03-08] MEDS ORDERED: LORazepam 2 MG/ML, 1ML IV PRN ×4 (20:30)
[2019-03-08] MEDS ORDERED: POTASSIUM CHLORIDE 20 MEQ TAB.ER.PRT PO ONE (20:30)
[2019-03-08] MEDS ORDERED: LACTATED RINGERS 1,000 ML IV SCH (20:30)
[2019-03-08] MEDS ORDERED: LORazepam 1MG TABLET PO PRN ×4 (20:30)
[2019-03-08] MEDS ORDERED: TRAZODONE 50MG TABLET PO SCH (21:00)
[2019-03-08] MEDS: GABAPENTIN 100 MG CAPSULE PO SCH (21:39)
[2019-03-08] MEDS: LORazepam 2 MG/ML, 1ML IV PRN (21:45)
[2019-03-08 21:58] LABS: INTERNATIONAL NORMALIZED RATIO 1.06 (0.93-1.1); PROTHROMBIN TIME 11.1 Seconds (9.6-11.5)
[2019-03-08 22:03] LABS: ALBUMIN 3.5 g/dL (3.4-5.0); BILIRUBIN, DIRECT 0.3 mg/dL (0.1-0.2)
[2019-03-08 22:05] LABS: BILIRUBIN,INDIRECT 0.4 mg/dL (0.0-2.0); BILIRUBIN,TOTAL 0.7 mg/dL (0.2-1.0); TOTAL PROTEIN 6.9 g/dL (6.4-8.2)
[2019-03-09 00:37] VITALS: BP 121/73
[2019-03-09] MEDS: ONDANSETRON 2MG/ML, 2ML IV PRN ×2 (02:06→08:51)
[2019-03-09] MEDS: LORazepam 2 MG/ML, 1ML IV PRN ×3 (02:06→15:36)
[2019-03-09 02:20] LABS: BASOPHILS # (AUTO) 0.01 x10^3/uL (0-0.1); BASOPHILS % (AUTO) 0 % (0-1); EOSINOPHILS # (AUTO) 0.03 x10^3/uL (0-0.4); EOSINOPHILS % (AUTO) 1 % (1-7); LYMPHOCYTES # (AUTO) 1.63 x10^3/uL (1-3.4); LYMPHOCYTES % (AUTO) 32 % (22-44); MD NO; MEAN CORPUSCULAR HEMOGLOBIN 28.6 pg (27.5-34.5); MEAN CORPUSCULAR HGB CONC 33.7 g/dL (33.2-36.2); MEAN CORPUSCULAR VOLUME 84.9 fL (81-97); MEAN PLATELET VOLUME 7.3 fL (7.4-10.4); MONOCYTES # (AUTO) 0.39 x10^3/uL (0.2-0.8); MONOCYTES % (AUTO) 8 % (2-9); NEUTROPHILS % (AUTO) 60 % (42-75); PLATELET COUNT 134 x10^3/uL (130-400); RED BLOOD COUNT 4.32 x10^6/uL (4.38-5.82); RED CELL DISTRIBUTION WIDTH 16.7 % (9.4-14.8)
[2019-03-09 02:32] LABS: ALANINE AMINOTRANSFERASE 56 U/L (12-78); ALBUMIN 3.3 g/dL (3.4-5.0); ANION GAP 11 mmol/L (5-15); CALCIUM 8.1 mg/dL (8.5-10.1); CHLORIDE 103 mmol/L (98-107); CREATININE 1.01 mg/dL (0.7-1.3)
[2019-03-09 02:35] LABS: ALKALINE PHOSPHATASE 61 U/L (45-117); BILIRUBIN,TOTAL 1.1 mg/dL (0.2-1.0); TOTAL PROTEIN 6.7 g/dL (6.4-8.2)
[2019-03-09 03:21] LABS: AMPHETAMINE SCREEN, URINE Negative (Negative); BARBITURATE SCREEN, URINE Negative (Negative); BENZODIAZEPINE SCREEN, URINE Positive (Negative); CANNABINOID SCREEN, URINE Negative (Negative); COCAINE SCREEN, URINE Negative (Negative); METHADONE SCREEN, URINE Negative (Negative); OPIATE SCREEN, URINE Negative (Negative)
[2019-03-09] MEDS ORDERED: POTASSIUM PHOSPHATE 44 MEQ in SODIUM CHLORIDE 0.9% 500 ML IV ONE (04:00)
[2019-03-09] MEDS ORDERED: CEFTRIAXONE PMX 1GM/50ML 50 ML IV SCH (04:30)
[2019-03-09] MEDS: PANTOPRAZOLE 80 MG in SODIUM CHLORIDE 0.9% 100 ML IV SCH (05:20)
[2019-03-09 08:01] VITALS: BP 161/81
[2019-03-09] MEDS ORDERED: CHLORDIAZEPOXIDE 25 MG CAPSULE PO PRN (08:30)
[2019-03-09] MEDS: NEUTRA PHOS K 250 MG TABLET PO SCH ×2 (08:51→15:35)
[2019-03-09] MEDS: GABAPENTIN 100 MG CAPSULE PO SCH ×2 (08:51→15:35)
[2019-03-09] MEDS ORDERED: MULTIVITAMIN 1 TABLET PO SCH (09:00)
[2019-03-09] MEDS ORDERED: FOLIC ACID 1 MG TABLET PO SCH (09:00)
[2019-03-09] MEDS ORDERED: HYDROCHLOROTHIAZIDE PO SCH (09:00)
[2019-03-09] MEDS ORDERED: [UNRECOGNIZED DRUG - OTHER] PO SCH (09:00)
[2019-03-09] MEDS ORDERED: MULTIVITS,STRESS FORMULA 1 TABLET PO SCH (09:00)
[2019-03-09] MEDS ORDERED: OLMESARTAN PO SCH (09:00)
[2019-03-09] MEDS ORDERED: SODIUM CHLORIDE 0.45% 1,000 ML IV SCH (10:00)
[2019-03-09 13:50] VITALS: BP 172/93
[2019-03-09] MEDS ORDERED: LACTATED RINGERS 1,000 ML IV SCH (20:30)
== END 2019-03-09 16:32 | disposition left against medical advice (07) | DRG 433 ==
LOC: ED 17:32 → EDIP 18:48 → 4WST 20:03
PROVIDERS: ADMIT Family Medicine; ATTEND Family Medicine
DX: K70.30 Alcoholic cirrhosis of liver without ascites (principal); F10.239 Alcohol dependence with withdrawal, unspecified; K92.0 Hematemesis; E11.9 Type 2 diabetes mellitus without complications; F10.229 Alcohol dependence with intoxication, unspecified; I10 Essential (primary) hypertension; K21.9 Gastro-esophageal reflux disease without esophagitis; K22.70 Barrett's esophagus without dysplasia; Z53.21 Procedure and treatment not carried out due to patient leaving prior to being seen by health care provider; K70.10 Alcoholic hepatitis without ascites; K76.0 Fatty (change of) liver, not elsewhere classified; Z90.49 Acquired absence of other specified parts of digestive tract; Z88.8 Allergy status to other drugs, medicaments and biological substances
CPT/HCPCS: 36415; 99285; J3490; 70450; 74177; 80048; 80053; 80076; 80307; 82040; 83735; 84100; 85014; 85018; 85025; 85610; 86850; 86900; 96365; 96375; G0378; J0696; J2405; J3411; Q9967; C9113; J2060; J7030; J7040; J7120

== ENCOUNTER 2019-03-10 17:54 | Inpatient (IN) | payer OTHER ==
[~2019-03-10] VITALS: Ht 182.9 cm; Wt 112.2 kg
--- NOTE | 2019-03-10 18:22 | NUR ---
BIB [facility] WITH GROSS ETOH USE AND FALL >12 HOURS AGO. PT STATES HE HIT THE FRONT OF HIS HEAD ON TV. UNKNOWN LOC. DRIED BLOOD NOTED ON FRONT OF HIS FOREHEAD. PT STATES LAST DRINK WAS YESTERDAY. PT CURRENTLY AAOX2 WITH NAD. BREATHING REGULAR AND UNLABORED. PT WAS SLIGHTLY HOSTILE FOR RESMA STAFF. APPEARS TO BE SLIGHTLY AGGITATED BUT COOPERATIVE. AWAITING EVAL AND ORDERS. WILL CONTINUE TO MONITOR.
[2019-03-10 18:48] LABS: BASOPHILS # (AUTO) 0.01 x10^3/uL (0-0.1); BASOPHILS % (AUTO) 0 % (0-1); EOSINOPHILS # (AUTO) 0.07 x10^3/uL (0-0.4); EOSINOPHILS % (AUTO) 2 % (1-7); LYMPHOCYTES # (AUTO) 1.61 x10^3/uL (1-3.4); LYMPHOCYTES % (AUTO) 44 % (22-44); MD NO; MEAN CORPUSCULAR HEMOGLOBIN 28.7 pg (27.5-34.5); MEAN CORPUSCULAR HGB CONC 33.4 g/dL (33.2-36.2); MEAN CORPUSCULAR VOLUME 85.7 fL (81-97); MEAN PLATELET VOLUME 7.2 fL (7.4-10.4); MONOCYTES # (AUTO) 0.28 x10^3/uL (0.2-0.8); MONOCYTES % (AUTO) 8 % (2-9); NEUTROPHILS # (AUTO) 1.74 x10^3/uL (1.8-6.8); NEUTROPHILS % (AUTO) 47 % (42-75); PLATELET COUNT 113 x10^3/uL (130-400); RED BLOOD COUNT 4.47 x10^6/uL (4.38-5.82); RED CELL DISTRIBUTION WIDTH 16.7 % (9.4-14.8)
--- NOTE | 2019-03-10 18:50 | NUR ---
SURGERY TEACHER AWARE OF POSSABILITY OF PLACING PT ON LEGAL 2000.
[2019-03-10 19:00] LABS: ALBUMIN 3.4 g/dL (3.4-5.0); ANION GAP 10 mmol/L (5-15); CALCIUM 8.2 mg/dL (8.5-10.1); CHLORIDE 108 mmol/L (98-107); CREATININE 0.82 mg/dL (0.7-1.3)
--- NOTE | 2019-03-10 19:40 | NUR ---
PT PLACED ON LEGAL 1999. PT ATTEMPTING TO LEAVE. [facility] RE[facility] PT AGAIN CONTINUES TO REFUSE. SECURITY CALLED TO ASSIST. PT BELONGINGS REMOVED. PT PLACED IN 4 POINT RESTRAINTS. PT MOVED TO ROOM 40.
[2019-03-10] MEDS ORDERED: POTASSIUM CHLORIDE 20 MEQ, MAGNESIUM SULFATE 2 GM, THIAMINE 200 MG, MVI ADULT 10 ML, FO... IV SCH (19:48)
[2019-03-10] MEDS ORDERED: LORazepam 2 MG/ML, 1ML ONE ×2 (19:54→21:40)
[2019-03-10] MEDS: LORazepam 2 MG/ML, 1ML IV PRN (19:59)
[2019-03-10] MEDS ORDERED: ONDANSETRON 2MG/ML, 2ML IVPush PRN (20:00)
[2019-03-10] MEDS ORDERED: DOCUSATE 100 MG CAPSULE PO PRN (20:00)
[2019-03-10] MEDS ORDERED: LORazepam 1MG TABLET PO PRN ×4 (20:00)
[2019-03-10] MEDS ORDERED: morphine SULFATE 10 MG/ML, 1ML IVPush PRN (20:00)
[2019-03-10] MEDS ORDERED: ONDANSETRON ODT 4 MG PO PRN (20:00)
[2019-03-10] MEDS ORDERED: POLYETHYLENE GLYCOL 17 GM PACKET PO PRN (20:00)
[2019-03-10] MEDS ORDERED: LORazepam 2 MG/ML, 1ML IV PRN ×4 (20:00)
[2019-03-10] MEDS ORDERED: BISACODYL 10 MG SUPP PR PRN (20:00)
[2019-03-10] MEDS ORDERED: LORazepam 0.5MG TABLET PO PRN (20:00)
[2019-03-10] MEDS ORDERED: hydrALAzine 20 MG/ML, 1ML IVPush PRN (20:00)
[2019-03-10] MEDS ORDERED: PROMETHAZINE 25 MG/ML, 1ML IM PRN (20:00)
--- NOTE | 2019-03-10 20:00 | NUR ---
REPORT RECEIVED FROM GIBRAN METZGER, ASSUMING CARE OF PT. PT YELLING INTO ALEXIS, PULLING AGAINST RESTRAINTS, TREMORING WITH TACHY HR AND HTN. PT MEDICATED PER DEC. ADMIT ORDERS RECEIVED FOR [employer], AWAITING ROOM ASSIGNMENT AT THIS TIME.
[2019-03-10 20:14] LABS: FREE T4 (FREE THYROXINE) 1.14 ng/dL (0.76-1.46); THYROID STIMULATING HORMONE 0.54 mIU/L (0.358-3.740)
[2019-03-10 20:17] LABS: HEMOGLOBIN A1C 5.6 % (4.2-6.3)
--- NOTE | 2019-03-10 20:26 | NUR ---
REPORT GIVEN TO TERESE METZGER, PT READY FOR TRANSPORT UP FOR FLOOR
[2019-03-10 20:49] VITALS: BP 146/86
[2019-03-10] MEDS ORDERED: PANTOPRAZOLE 40 MG IV ONE (21:13)
[2019-03-10] MEDS: PANTOPRAZOLE 40 MG IV IVPush SCH (21:16)
[2019-03-10 23:26] LABS: MICROSCOPIC AUTO
[2019-03-10 23:29] LABS: CULTURE INDICATED? NO
[2019-03-11] MEDS: LORazepam 2 MG/ML, 1ML IV PRN ×3 (01:07→05:29)
[2019-03-11 01:14] VITALS: BP 138/83
[2019-03-11 05:55] LABS: BASOPHILS # (AUTO) 0.01 x10^3/uL (0-0.1); BASOPHILS % (AUTO) 0 % (0-1); EOSINOPHILS # (AUTO) 0.08 x10^3/uL (0-0.4); EOSINOPHILS % (AUTO) 1 % (1-7); LYMPHOCYTES # (AUTO) 1.58 x10^3/uL (1-3.4); LYMPHOCYTES % (AUTO) 29 % (22-44); MD NO; MEAN CORPUSCULAR VOLUME 85.1 fL (81-97); MEAN PLATELET VOLUME 7.6 fL (7.4-10.4); MONOCYTES # (AUTO) 0.44 x10^3/uL (0.2-0.8); MONOCYTES % (AUTO) 8 % (2-9); NEUTROPHILS # (AUTO) 3.41 x10^3/uL (1.8-6.8); NEUTROPHILS % (AUTO) 62 % (42-75); PLATELET COUNT 112 x10^3/uL (130-400); RED BLOOD COUNT 4.01 x10^6/uL (4.38-5.82); RED CELL DISTRIBUTION WIDTH 16.9 % (9.4-14.8)
[2019-03-11 05:58] LABS: CHLORIDE 104 mmol/L (98-107)
[2019-03-11 06:10] LABS: ALANINE AMINOTRANSFERASE 70 U/L (12-78); ALBUMIN 3.1 g/dL (3.4-5.0); ALKALINE PHOSPHATASE 59 U/L (45-117); ANION GAP 6 mmol/L (5-15); BILIRUBIN,TOTAL 0.6 mg/dL (0.2-1.0); CALCIUM 8.4 mg/dL (8.5-10.1); CHOL/HDL RATIO 2.6; CHOLESTEROL, TOTAL 146 mg/dL (140-239); CREATININE 0.88 mg/dL (0.7-1.3); HDL CHOL % 39 % (26-37); HDL CHOLESTEROL (DIRECT) 57 mg/dL (40-60); LDL CHOLESTEROL,CALCULATED 71 mg/dL (54-169); LDL/HDL RATIO 1.2 (0.5-3.0); TOTAL PROTEIN 6.4 g/dL (6.4-8.2); TRIGLYCERIDES 88 mg/dL (50-200); VLDL CHOLESTEROL 18 mg/dL (0-25)
[2019-03-11 07:50] VITALS: BP 155/77
[2019-03-11] MEDS: PANTOPRAZOLE 40 MG IV IVPush SCH ×3 (08:13→20:00)
[2019-03-11] MEDS: LOSARTAN 50MG TABLET PO SCH (08:13)
[2019-03-11] MEDS: CHLORDIAZEPOXIDE 25 MG CAPSULE PO SCH ×4 (08:38→22:33)
[2019-03-11] MEDS: VALPROIC ACID 250 MG CAPSULE PO SCH ×3 (08:38→19:49)
[2019-03-11] MEDS: GABAPENTIN 100 MG CAPSULE PO SCH ×3 (08:38→19:49)
[2019-03-11] MEDS: POTASSIUM CHLORIDE 20 MEQ, MAGNESIUM SULFATE 1 GM, FOLIC ACID 1 MG, THIAMINE 200 MG, MV... IV SCH (09:34)
[2019-03-11 12:32] VITALS: BP 154/98
[2019-03-11] MEDS: SODIUM CHLORIDE 0.45% 1,000 ML IV SCH (16:01)
[2019-03-11 18:52] VITALS: BP 159/106
[2019-03-11] MEDS: OXYcodone IR 5MG TABLET PO PRN (19:55)
[2019-03-12 01:00] VITALS: BP 154/95
[2019-03-12] MEDS: SODIUM CHLORIDE 0.45% 1,000 ML IV SCH ×2 (04:42→20:04)
[2019-03-12 06:24] LABS: MEAN CORPUSCULAR HGB CONC 33.9 g/dL (33.2-36.2); MEAN CORPUSCULAR VOLUME 85.8 fL (81-97); MEAN PLATELET VOLUME 7.9 fL (7.4-10.4); PLATELET COUNT 96 x10^3/uL (130-400); RED BLOOD COUNT 4.03 x10^6/uL (4.38-5.82); RED CELL DISTRIBUTION WIDTH 16.7 % (9.4-14.8)
[2019-03-12 06:36] LABS: ANION GAP 7 mmol/L (5-15); CALCIUM 8.1 mg/dL (8.5-10.1); CHLORIDE 102 mmol/L (98-107)
[2019-03-12 06:39] LABS: ALANINE AMINOTRANSFERASE 74 U/L (12-78); ALKALINE PHOSPHATASE 65 U/L (45-117); BILIRUBIN,TOTAL 1.2 mg/dL (0.2-1.0); CREATININE 0.97 mg/dL (0.7-1.3); TOTAL PROTEIN 6.1 g/dL (6.4-8.2)
[2019-03-12 06:50] LABS: BASOPHILS # (AUTO) 0.01 x10^3/uL (0-0.1); BASOPHILS % (AUTO) 0 % (0-1); EOSINOPHILS # (AUTO) 0.15 x10^3/uL (0-0.4); EOSINOPHILS % (AUTO) 3 % (1-7); LYMPHOCYTES # (AUTO) 1.58 x10^3/uL (1-3.4); LYMPHOCYTES % (AUTO) 32 % (22-44); MD SCAN; MONOCYTES % (AUTO) 6 % (2-9); NEUTROPHILS # (AUTO) 2.84 x10^3/uL (1.8-6.8); NEUTROPHILS % (AUTO) 58 % (42-75)
[2019-03-12] MEDS ORDERED: POTASSIUM CHLORIDE 20 MEQ TAB.ER.PRT PO ONE ×2 (07:00→11:00)
[2019-03-12 07:48] VITALS: BP 150/91
[2019-03-12] MEDS: PANTOPRAZOLE 40 MG IV IVPush SCH (08:58)
[2019-03-12] MEDS: VALPROIC ACID 250 MG CAPSULE PO SCH ×3 (08:58→20:03)
[2019-03-12] MEDS: GABAPENTIN 100 MG CAPSULE PO SCH ×3 (08:58→20:04)
[2019-03-12] MEDS: LOSARTAN 50MG TABLET PO SCH (08:59)
[2019-03-12] MEDS: POTASSIUM CHLORIDE 20 MEQ, MAGNESIUM SULFATE 1 GM, FOLIC ACID 1 MG, THIAMINE 200 MG, MV... IV SCH (10:52)
[2019-03-12] MEDS: CHLORDIAZEPOXIDE 25 MG CAPSULE PO SCH ×3 (10:52→20:04)
[2019-03-12 19:20] VITALS: BP 170/104
[2019-03-12] MEDS: PANTOPROZOLE 40MG TABLET PO SCH (20:03)
[2019-03-12] MEDS: OXYcodone IR 5MG TABLET PO PRN (22:42)
[2019-03-13] MEDS: OXYcodone IR 5MG TABLET PO PRN (00:39)
[2019-03-13 00:56] VITALS: BP 159/91
[2019-03-13] MEDS: SODIUM CHLORIDE 0.45% 1,000 ML IV SCH (04:59)
[2019-03-13 06:06] LABS: MEAN CORPUSCULAR HEMOGLOBIN 29.3 pg (27.5-34.5); MEAN CORPUSCULAR HGB CONC 33.8 g/dL (33.2-36.2); MEAN CORPUSCULAR VOLUME 86.6 fL (81-97); PLATELET COUNT 98 x10^3/uL (130-400); RED BLOOD COUNT 3.97 x10^6/uL (4.38-5.82); RED CELL DISTRIBUTION WIDTH 16.3 % (9.4-14.8)
[2019-03-13 06:11] LABS: ANION GAP 5 mmol/L (5-15); CALCIUM 8.4 mg/dL (8.5-10.1); CHLORIDE 107 mmol/L (98-107)
[2019-03-13] MEDS: PANTOPROZOLE 40MG TABLET PO SCH (06:13)
[2019-03-13 06:15] LABS: ALANINE AMINOTRANSFERASE 82 U/L (12-78); ALKALINE PHOSPHATASE 63 U/L (45-117); BILIRUBIN,TOTAL 0.8 mg/dL (0.2-1.0); CREATININE 0.92 mg/dL (0.7-1.3); TOTAL PROTEIN 6.3 g/dL (6.4-8.2)
[2019-03-13 06:30] LABS: BASOPHILS # (AUTO) 0.01 x10^3/uL (0-0.1); BASOPHILS % (AUTO) 0 % (0-1); EOSINOPHILS # (AUTO) 0.13 x10^3/uL (0-0.4); EOSINOPHILS % (AUTO) 2 % (1-7); LYMPHOCYTES # (AUTO) 1.96 x10^3/uL (1-3.4); LYMPHOCYTES % (AUTO) 34 % (22-44); MD SCAN; MONOCYTES # (AUTO) 0.35 x10^3/uL (0.2-0.8); MONOCYTES % (AUTO) 6 % (2-9); NEUTROPHILS # (AUTO) 3.29 x10^3/uL (1.8-6.8); NEUTROPHILS % (AUTO) 57 % (42-75)
[2019-03-13 07:25] VITALS: BP 156/104
[2019-03-13] MEDS: LOSARTAN 50MG TABLET PO SCH (08:23)
[2019-03-13] MEDS: VALPROIC ACID 250 MG CAPSULE PO SCH (08:23)
[2019-03-13] MEDS: GABAPENTIN 100 MG CAPSULE PO SCH (08:24)
[2019-03-13] MEDS ORDERED: CHLORDIAZEPOXIDE 5 MG CAPSULE PO PRN (09:00)
[2019-03-13] MEDS ORDERED: VALP250C PO (14:42)
[2019-03-13] MEDS ORDERED: PANT40TA5 PO (14:42)
[2019-03-13] MEDS ORDERED: GABA-826 PO (14:42)
[2019-03-13] MEDS ORDERED: CHLO5CAP2 PO (14:42)
[2019-03-14] MEDS ORDERED: ACAM333T7 PO (12:29)
[2019-03-14] MEDS ORDERED: MULT-717 PO (12:29)
[2019-03-14] MEDS ORDERED: HYDR12.517 PO (12:29)
[2019-03-14] MEDS ORDERED: OMEP-110 PO (12:29)
[2019-03-14] MEDS ORDERED: GABA300C10 PO (12:29)
== END 2019-03-13 16:56 | DRG 433 ==
LOC: ED 19:34 → EDIP 19:35 → 4WST 21:40
PROVIDERS: ADMIT Internal Medicine; ATTEND Internal Medicine
DX: K70.30 Alcoholic cirrhosis of liver without ascites (principal); R45.851 Suicidal ideations; K22.70 Barrett's esophagus without dysplasia; E11.9 Type 2 diabetes mellitus without complications; D69.6 Thrombocytopenia, unspecified; D64.9 Anemia, unspecified; Z78.1 Physical restraint status; S00.01XA Abrasion of scalp, initial encounter; R29.6 Repeated falls; F10.229 Alcohol dependence with intoxication, unspecified; E87.6 Hypokalemia; E86.0 Dehydration; R62.7 Adult failure to thrive; I10 Essential (primary) hypertension; K73.9 Chronic hepatitis, unspecified; S00.83XA Contusion of other part of head, initial encounter; W18.30XA Fall on same level, unspecified, initial encounter; Y93.89 Activity, other specified; Y92.89 Other specified places as the place of occurrence of the external cause; Y99.8 Other external cause status
CPT/HCPCS: 36415; 99285; J7042; J7121; 70450; 80048; 80053; 80061; 80307; 81001; 82040; 83036; 83735; 84100; 84439; 84443; 85025; G0378; J2405; J3411; J3475; J3480; C9113; J2060

== ENCOUNTER 2019-03-13 15:09 | Inpatient (IN) | payer OTHER ==
[~2019-03-13] VITALS: Ht 182.9 cm; Wt 94.8 kg
[~2019-03-13 15:09] MED LIST changes: +CHLO5CAP2 PO; +PANT40TA5 PO; +VALP250C PO
[2019-03-13] MEDS ORDERED: BISACODYL 10 MG SUPP PR PRN (15:30)
[2019-03-13] MEDS ORDERED: ONDANSETRON ODT 4 MG PO PRN (15:30)
[2019-03-13] MEDS ORDERED: TRAZODONE 50MG TABLET PO PRN (15:30)
[2019-03-13] MEDS ORDERED: POLYETHYLENE GLYCOL 17 GM PACKET PO PRN (15:30)
[2019-03-13] MEDS ORDERED: DOCUSATE 100 MG CAPSULE PO PRN (15:30)
[2019-03-13] MEDS ORDERED: HALOPERIDOL 5 MG/ML IV ONE (16:30)
[2019-03-13] MEDS ORDERED: DIPHENHYDRAMINE 50 MG/ML, 1ML IM ONE (16:30)
[2019-03-13] MEDS ORDERED: LORazepam 2 MG/ML, 1ML IM ONE (16:30)
[2019-03-13] MEDS ORDERED: PLEASE ENTER HEIGHT AND WEIGHT MC SCH (17:30)
[2019-03-13 19:40] VITALS: BP 145/78
[2019-03-13] MEDS: ACAMPROSATE 333 MG TABLET.DR PO SCH (21:55)
[2019-03-13] MEDS: ACETAMINOPHEN 325 MG TABLET PO PRN (21:55)
[2019-03-13 22:54] VITALS: BP 165/92
[2019-03-13] MEDS ORDERED: AMLODIPINE 10 MG TAB PO ONE (23:00)
[2019-03-13] MEDS ORDERED: AMLODIPINE 10 MG TAB ONE (23:08)
[2019-03-14 07:31] VITALS: BP 145/82
[2019-03-14] MEDS: ACAMPROSATE 333 MG TABLET.DR PO SCH (08:59)
[2019-03-14] MEDS: ACETAMINOPHEN 325 MG TABLET PO PRN (08:59)
[2019-03-14] MEDS ORDERED: THIAMINE 100MG TABLET PO SCH (09:00)
[2019-03-14] MEDS ORDERED: FOLIC ACID 1 MG TABLET PO SCH (09:00)
[2019-03-14] MEDS ORDERED: LORazepam 2 MG/ML, 1ML IV PRN ×5 (11:00)
[2019-03-14] MEDS ORDERED: LORazepam 1MG TABLET PO PRN ×4 (11:00)
[2019-03-14] MEDS ORDERED: LORazepam 0.5MG TABLET PO PRN (11:00)
[2019-03-14] MEDS ORDERED: HYDR12.517 PO (12:29)
[2019-03-14] MEDS ORDERED: GABA300C10 PO (12:29)
[2019-03-14] MEDS ORDERED: MULT-717 PO (12:29)
[2019-03-14] MEDS ORDERED: OMEP-110 PO (12:29)
[2019-03-14] MEDS ORDERED: ACAM333T7 PO (12:29)
[2019-03-14] MEDS ORDERED: VALPROIC ACID 250 MG CAPSULE PO SCH (16:00)
[2019-03-14] MEDS ORDERED: GABAPENTIN 300 MG CAPSULE PO SCH (21:00)
[2019-03-15] MEDS ORDERED: HYDROCHLOROTHIAZIDE 12.5 MG CAPSULE PO SCH (09:00)
[2019-03-15] MEDS ORDERED: LOSARTAN 50MG TABLET PO SCH (09:00)
== END 2019-03-14 13:35 | disposition home or self-care (01) | DRG 885 ==
LOC: 3E 16:59
PROVIDERS: ADMIT Psychiatry & Neurology Psychosomatic Medicine; ATTEND Psychiatry & Neurology Psychosomatic Medicine
DX: F39 Unspecified mood [affective] disorder (principal); F10.239 Alcohol dependence with withdrawal, unspecified; K92.0 Hematemesis; F06.4 Anxiety disorder due to known physiological condition; G89.29 Other chronic pain; I10 Essential (primary) hypertension; G62.9 Polyneuropathy, unspecified; E87.6 Hypokalemia; D69.6 Thrombocytopenia, unspecified; D64.9 Anemia, unspecified; Z79.899 Other long term (current) drug therapy; R62.7 Adult failure to thrive; K73.9 Chronic hepatitis, unspecified; K22.70 Barrett's esophagus without dysplasia; K21.9 Gastro-esophageal reflux disease without esophagitis; S00.83XA Contusion of other part of head, initial encounter; W18.30XA Fall on same level, unspecified, initial encounter; Y93.89 Activity, other specified; Y92.89 Other specified places as the place of occurrence of the external cause; Y99.8 Other external cause status
CPT/HCPCS: 36415; 82140; 86592; 93005; 92523-GN

== ENCOUNTER 2019-03-19 16:00 | Emergency (ER) | payer OTHER ==
[~2019-03-19] VITALS: Ht 188 cm; Wt 109.0 kg
[~2019-03-19 16:00] MED LIST changes: +ACAM333T7 PO; +HYDR12.517 PO
--- NOTE | 2019-03-19 16:16 | NUR ---
BIB BY [facility] FOR ETOH INTOXICATION WITH WILLINGNESS TO DETOX->GO TO REHAB ADMITS TO DRINKING A FEW PINTS OF VODKA THIS AM. PATIENT REPORTS HE HAS BEEN BINGING WITH LIQUOUR FOR "A WEEK OR SO" REPORTS HX OF SEIZURE/DT'S FROM ETOH WITHDRAWAL HX OF HTN-ON BENICAR ALERT AND ORIENTED-BUT QUITE INTOXICATED HR 115, FSBS 156
[2019-03-19] MEDS ORDERED: OLME40TA22 PO (16:19)
[2019-03-19] MEDS ORDERED: PLEASE ENTER HEIGHT AND WEIGHT MC SCH (16:30)
[2019-03-19] MEDS ORDERED: SODIUM CHLORIDE 0.9% 1,000ML IVBOLUS ONE (16:30)
[2019-03-19 16:46] LABS: ALANINE AMINOTRANSFERASE 68 U/L (12-78); ALBUMIN 3.7 g/dL (3.4-5.0); ANION GAP 12 mmol/L (5-15); BASOPHILS # (AUTO) 0.02 x10^3/uL (0-0.1); BASOPHILS % (AUTO) 0 % (0-1); CALCIUM 8.3 mg/dL (8.5-10.1); CHLORIDE 105 mmol/L (98-107); CREATININE 1.17 mg/dL (0.7-1.3); EOSINOPHILS % (AUTO) 0 % (1-7); LYMPHOCYTES # (AUTO) 2.54 x10^3/uL (1-3.4); LYMPHOCYTES % (AUTO) 36 % (22-44); MD NO; MEAN CORPUSCULAR HEMOGLOBIN 29.1 pg (27.5-34.5); MEAN CORPUSCULAR HGB CONC 32.7 g/dL (33.2-36.2); MEAN CORPUSCULAR VOLUME 88.9 fL (81-97); MONOCYTES # (AUTO) 0.75 x10^3/uL (0.2-0.8); MONOCYTES % (AUTO) 11 % (2-9); NEUTROPHILS # (AUTO) 3.83 x10^3/uL (1.8-6.8); NEUTROPHILS % (AUTO) 54 % (42-75); PLATELET COUNT 222 x10^3/uL (130-400); RED BLOOD COUNT 4.71 x10^6/uL (4.38-5.82); RED CELL DISTRIBUTION WIDTH 19.4 % (9.4-14.8)
[2019-03-19] MEDS ORDERED: LORazepam 2 MG/ML, 1ML ONE (16:46)
--- NOTE | 2019-03-19 16:49 | NUR ---
MEDICATED PER EMAR (1MG ATIVAN) PATIENT REPORTS LAST DRINK ACTUALLY 5-6 HOURS AGO SEIZURE PRECAUTIONS PLACED
[2019-03-19 16:57] LABS: ALKALINE PHOSPHATASE 75 U/L (45-117); TOTAL PROTEIN 7.7 g/dL (6.4-8.2)
[2019-03-19] MEDS ORDERED: LORazepam 2 MG/ML, 1ML IVPush ONE (17:00)
[2019-03-19] MEDS ORDERED: CHLORDIAZEPOXIDE 25 MG CAPSULE PO ONE (17:30)
--- NOTE | 2019-03-19 17:30 | NUR ---
AFTER MEDICATION PATIENT NOW DEEPLY ASLEEP VITALS UNCHANGED ON TOWER AIR TRAFFIC CONTROL SPECIALIST SEIZURE PRECAUTIONS REMAIN IN PLACE WILL CONTINUE TO MONITOR ER PROVIDER POC TO [facility]->OUTPATIENT REHAB
--- NOTE | 2019-03-19 17:46 | NUR ---
[facility] CALLED TO DETERMINE ELIGIBILITY FOR TRANSFER. NO BEDS AVAILABLE
--- NOTE | 2019-03-19 17:48 | NUR ---
[facility] CALLED. SPOKE TO MAXI. HE REPORTS THEY DO HAVE BEDS AVAILABLE. HE WILL STAFFG PATIENT WITH MD AND CALL BOX OFFICE ATTENDANT BACK
--- NOTE | 2019-03-19 18:30 | NUR ---
REPORT TO ABY METZGER
--- NOTE | 2019-03-19 19:10 | NUR ---
PATIENT AWOKEN TO PO CHALLENGE TOLERATING PO FLUIDS/SOLIDS UP TO RESTROOM TO VOID- AMBULATED W/OUT DIFFICULTY AWAITING RETURN CALL FROM [facility]-TO CALL TO DETERMINE CONTINUE ELIGIBILITY FOR TRANSFER
[2019-03-19] MEDS ORDERED: CHLORDIAZEPOXIDE 25 MG CAPSULE ONE (19:48)
--- NOTE | 2019-03-19 20:20 | NUR ---
PATIENT PROVIDED W/ TAXI VOUCHER ADDRESSED TO CAYCE. [facility] GIVEN REPORT ON PENDING ARRIVAL PRIOR TO DISCHARGE PATIENT HR DOWN TO 98. DRANK 600ML OF WAER AND ATE A SANDWHICH. SUPERVISOR BELT AND LINK ASSEMBLY COMFORTABLE W/ CIWA/SEDATION STATUS IN SETTING OF DISCHARGE (PATIENT SAFE TO BE DISCHARGED IN MY OPINION DESPITE RECENT NARCOTIC ADMINISTRATION/WITHDRAWING FROM ETOH)
[2019-03-19 20:38] VITALS: BP 145/71
== END 2019-03-19 20:40 | disposition home or self-care (01) ==
LOC: ED 19:51
DX: F10.220 Alcohol dependence with intoxication, uncomplicated (principal); F10.230 Alcohol dependence with withdrawal, uncomplicated; K21.9 Gastro-esophageal reflux disease without esophagitis; I10 Essential (primary) hypertension; E11.65 Type 2 diabetes mellitus with hyperglycemia; E11.21 Type 2 diabetes mellitus with diabetic nephropathy
CPT/HCPCS: 36415; 80053; 80307; 83690; 85025; 96361; 96374; 99283; J2060; J7030

== ENCOUNTER 2019-04-04 03:34 | Inpatient (IN) | payer OTHER ==
[~2019-04-04] VITALS: Ht 190.5 cm; Wt 109.4 kg
[~2019-04-04 03:34] MED LIST changes: +OLME40TA22 PO
--- NOTE | 2019-04-04 03:54 | NUR ---
Pt presents to ed c/o sob tonight starting at 2100. Denies associated cp. Smells grossly of etoh and states "i drink a lot." Pt is mildly diaphoretic in ed. Talking in full sentences. No increased wob noted. All monitoring applied. Pt mildly tachycardic. Md notified. Md at bedside. Vs otherwise stable. Call light within reach.
[2019-04-04] MEDS ORDERED: ONDANSETRON ODT 8 MG ONE (04:14)
[2019-04-04 04:26] LABS: BASOPHILS # (AUTO) 0.03 x10^3/uL (0-0.1); BASOPHILS % (AUTO) 1 % (0-1); EOSINOPHILS # (AUTO) 0.03 x10^3/uL (0-0.4); EOSINOPHILS % (AUTO) 1 % (1-7); LYMPHOCYTES # (AUTO) 1.95 x10^3/uL (1-3.4); LYMPHOCYTES % (AUTO) 37 % (22-44); MD NO; MEAN CORPUSCULAR HEMOGLOBIN 28.1 pg (27.5-34.5); MEAN CORPUSCULAR HGB CONC 31.6 g/dL (33.2-36.2); MEAN CORPUSCULAR VOLUME 88.9 fL (81-97); MEAN PLATELET VOLUME 6.8 fL (7.4-10.4); MONOCYTES # (AUTO) 0.28 x10^3/uL (0.2-0.8); MONOCYTES % (AUTO) 5 % (2-9); NEUTROPHILS # (AUTO) 3.03 x10^3/uL (1.8-6.8); NEUTROPHILS % (AUTO) 57 % (42-75); PLATELET COUNT 273 x10^3/uL (130-400); RED BLOOD COUNT 5.37 x10^6/uL (4.38-5.82); RED CELL DISTRIBUTION WIDTH 19.7 % (9.4-14.8)
--- NOTE | 2019-04-04 04:29 | NUR ---
Prior to lab draw pt called rn in room. States "i need zofran." This rn informs pt he will go talk to md. Pt states "you dont understand, im not letting them draw my blood until i get zofran." Md notified. Given zofran and blood drawn.
[2019-04-04] MEDS ORDERED: ONDANSETRON ODT 8 MG PO ONE (04:30)
[2019-04-04 04:37] LABS: ALANINE AMINOTRANSFERASE 101 U/L (12-78); ALBUMIN 3.7 g/dL (3.4-5.0); ANION GAP 14 mmol/L (5-15); CALCIUM 8.5 mg/dL (8.5-10.1); CHLORIDE 105 mmol/L (98-107); CREATININE 0.93 mg/dL (0.7-1.3)
[2019-04-04 04:38] LABS: D-DIMER 3.26 ug/mlFEU (0.00-0.52); INTERNATIONAL NORMALIZED RATIO 1.04 (0.93-1.1); PROTHROMBIN TIME 10.9 Seconds (9.6-11.5)
[2019-04-04 04:42] LABS: ALKALINE PHOSPHATASE 87 U/L (45-117); BILIRUBIN,TOTAL 0.7 mg/dL (0.2-1.0); TOTAL PROTEIN 8.6 g/dL (6.4-8.2); TROPONIN I 0.049 ng/mL (0.000-0.045)
--- NOTE | 2019-04-04 05:30 | NUR ---
This rn attempted multiple ivs, unsuccessfully. Christiano crenshaw at bedside for attempt at us iv.
--- NOTE | 2019-04-04 05:38 | NUR ---
Iv established via kymberly crenshaw. No immediate needs from pt.
--- NOTE | 2019-04-04 05:58 | NUR ---
Pt back from ct. All monitoring intact. Call light within reach.
[2019-04-04] MEDS ORDERED: OMNIPAQUE 350 MG/ML, 100ML BOTTLE ONE (06:01)
--- NOTE | 2019-04-04 06:13 | NUR ---
Pt not allowing staff to put bp cuff on for fresh vitals. 5 lead and spo2 still in place.
--- NOTE | 2019-04-04 06:25 | NUR ---
Awaiting trop at 0630 and cta results.
--- NOTE | 2019-04-04 06:45 | NUR ---
Pt report to amrit crenshaw.
[2019-04-04] MEDS ORDERED: SODIUM CHLORIDE 0.9% 1,000ML IVBOLUS ONE (07:00)
[2019-04-04] MEDS ORDERED: ONDANSETRON 2MG/ML, 2ML IVPush ONE (07:00)
[2019-04-04] MEDS ORDERED: SODIUM CHLORIDE FLUSH 10ML SYR IVF ONE (07:00)
--- NOTE | 2019-04-04 07:04 | NUR ---
RECEIVED REPORT FROM MIRACLE METZGER.
--- NOTE | 2019-04-04 07:10 | NUR ---
pt up to br and stable on feet. pt then back to bed. pt placed on bp, cardiac and cont. pulse oximeter.
[2019-04-04] MEDS ORDERED: LORazepam 2 MG/ML, 1ML ONE ×6 (07:12→12:43)
[2019-04-04] MEDS: LORazepam 2 MG/ML, 1ML IVPush PRN ×4 (07:16→11:29)
[2019-04-04 07:35] LABS: TROPONIN I 0.059 ng/mL (0.000-0.045)
--- NOTE | 2019-04-04 09:05 | NUR ---
pt resting in bed. report given to meagan crenshaw.
--- NOTE | 2019-04-04 09:05 | NUR ---
late entry: 8:10 pt resting in bed awaiting admit orders.
--- NOTE | 2019-04-04 09:10 | NUR ---
BEDSIDE REPORT FROM DOMENICA COTO. ASSUMED CARE OF PATIENT AT THIS TIME. PATIENT SITTING COMFORTABLY IN GURNEY, VISIBLE PERSPIRATION, NADN. AWAITING BED ASSIGNMENT.
[2019-04-04] MEDS ORDERED: ACETAMINOPHEN 325 MG TABLET PO PRN (10:00)
[2019-04-04] MEDS ORDERED: ONDANSETRON ODT 4 MG PO PRN (10:00)
[2019-04-04] MEDS ORDERED: BISACODYL 10 MG SUPP PR PRN (10:00)
[2019-04-04] MEDS ORDERED: DOCUSATE 100 MG CAPSULE PO PRN (10:00)
[2019-04-04] MEDS ORDERED: LABETALOL 5MG/ML, 20ML IVPush PRN (10:00)
[2019-04-04] MEDS ORDERED: POLYETHYLENE GLYCOL 17 GM PACKET PO PRN (10:00)
[2019-04-04] MEDS ORDERED: MAALOX/HYOSCYAMINE/LIDOCAINE 45 ML BTL PO PRN (10:00)
[2019-04-04] MEDS ORDERED: LORazepam 1MG TABLET PO PRN (10:00)
[2019-04-04] MEDS ORDERED: FOLIC ACID 1 MG, THIAMINE 200 MG, MVI ADULT 10 ML in D5%-0.9% NACL 1,000 ML IV SCH (10:00)
[2019-04-04] MEDS ORDERED: ONDANSETRON 2MG/ML, 2ML IVPush PRN (10:00)
[2019-04-04] MEDS ORDERED: MAALOX/HYOSCYAMINE/LIDOCAINE 45 ML BTL PO ONE (10:00)
[2019-04-04] MEDS ORDERED: LORazepam 2 MG/ML, 1ML IV PRN ×3 (10:00)
[2019-04-04] MEDS ORDERED: LORazepam 0.5MG TABLET PO PRN (10:00)
[2019-04-04] MEDS ORDERED: ENALAPRILAT 1.25 MG/ML, 2ML IVPush PRN (10:00)
[2019-04-04] MEDS: SODIUM CHLORIDE 0.9% 1,000 ML IV SCH ×2 (10:03→20:32)
--- NOTE | 2019-04-04 10:06 | NUR ---
PATIENT ANXIOUS, CIWA ASSESSED, 2 MG ATIVAN GIVEN IV. ALL MONITORS IN PLACE. ASSISTANT HALL DIRECTOR ON PATIENT. NADN. SITTER AT DOORWAY WITH PATIENT IN SIGHT. AWAITING BED ASSIGNMENT, NO AVAILABLE BEDS.
[2019-04-04 10:32] LABS: TROPONIN I 0.034 ng/mL (0.000-0.045)
--- NOTE | 2019-04-04 11:00 | NUR ---
PATIENT SLEEPING IN GURNEY, VISIBLE CHEST RISE/FALL, NADN. VS UPDATED IN CHART.
[2019-04-04] MEDS ORDERED: ONDANSETRON 2MG/ML, 2ML ONE (11:04)
[2019-04-04] MEDS ORDERED: PANTOPRAZOLE 40 MG IV ONE (11:20)
[2019-04-04] MEDS ORDERED: MAALOX/HYOSCYAMINE/LIDOCAINE 45 ML BTL ONE (11:21)
[2019-04-04] MEDS: PANTOPRAZOLE 40 MG IV IVPush SCH (11:28)
--- NOTE | 2019-04-04 11:32 | NUR ---
MEDICATION REQUEST SENT TO PHARMACY.
--- NOTE | 2019-04-04 11:46 | NUR ---
PATIENT ASSISTED TO BATHROOM 1 ASSIST, PATIENT ANXIOUS, CIWA ASSESSED, 2 MG ATIVAN GIVEN IV. PATIENT BACK TO BED.ALL MONITORS IN PLACE. MAINTENANCE MECHANIC ENGINE ON PATIENT. SITTER AT DOORWAY WITH PATIENT IN SIGHT. PATIENT EDUCATED REGARDING NEED TO CONTACT RN PRIOR TO GETTING UP, MCKENZIE. VS UPDATED IN CHART.
--- NOTE | 2019-04-04 12:01 | NUR ---
MEDICATION SENT FROM PHARMACY, AWAITING PUMPS. PUMPS REQUESTED. NO PUMPS AVAILABLE AT THIS TIME.
--- NOTE | 2019-04-04 12:36 | NUR ---
PATIENT ASSISTED TO BATHROOM, PATIENT BACK TO BED, ALL MONITORS IN PLACE.
--- NOTE | 2019-04-04 12:47 | NUR ---
PATIENT ANXIOUS, CIWA COMPLETED THIS HOUR, 2MG ADMINISTERED PER PROTOCOL. NADN. VS UPDATED IN CHART, NO ADDITIONAL NEEDS AT THIS TIME.
--- NOTE | 2019-04-04 13:32 | NUR ---
REPORT TO DOMENICA RUBIN.
[2019-04-04 13:57] VITALS: BP 136/81
[2019-04-04 15:59] LABS: TROPONIN I 0.031 ng/mL (0.000-0.045)
[2019-04-04] MEDS: GABAPENTIN 300 MG CAPSULE PO SCH ×2 (16:09→20:32)
[2019-04-04 19:03] VITALS: BP 160/92
[2019-04-04] MEDS: TRAZODONE 50MG TABLET PO SCH (20:32)
[2019-04-05 00:17] VITALS: BP_SYST 156; BP_SYST 166; BP_DIAS 101; BP_DIAS 94
[2019-04-05] MEDS: SODIUM CHLORIDE 0.9% 1,000 ML IV SCH ×3 (04:57→22:26)
[2019-04-05 06:22] LABS: BASOPHILS # (AUTO) 0.01 x10^3/uL (0-0.1); BASOPHILS % (AUTO) 1 % (0-1); EOSINOPHILS # (AUTO) 0.06 x10^3/uL (0-0.4); EOSINOPHILS % (AUTO) 2 % (1-7); LYMPHOCYTES # (AUTO) 1.23 x10^3/uL (1-3.4); LYMPHOCYTES % (AUTO) 38 % (22-44); MD NO; MEAN CORPUSCULAR HEMOGLOBIN 28.8 pg (27.5-34.5); MEAN CORPUSCULAR HGB CONC 32.6 g/dL (33.2-36.2); MEAN CORPUSCULAR VOLUME 88.4 fL (81-97); MEAN PLATELET VOLUME 7.2 fL (7.4-10.4); MONOCYTES # (AUTO) 0.28 x10^3/uL (0.2-0.8); MONOCYTES % (AUTO) 9 % (2-9); NEUTROPHILS # (AUTO) 1.66 x10^3/uL (1.8-6.8); NEUTROPHILS % (AUTO) 51 % (42-75); PLATELET COUNT 124 x10^3/uL (130-400); RED BLOOD COUNT 3.92 x10^6/uL (4.38-5.82); RED CELL DISTRIBUTION WIDTH 18.5 % (9.4-14.8)
[2019-04-05 06:26] LABS: CHLORIDE 105 mmol/L (98-107)
[2019-04-05 06:40] LABS: ANION GAP 7 mmol/L (5-15); CALCIUM 8.1 mg/dL (8.5-10.1); CREATININE 0.82 mg/dL (0.7-1.3)
[2019-04-05 07:00] VITALS: BP 159/99
[2019-04-05] MEDS: GABAPENTIN 300 MG CAPSULE PO SCH ×3 (08:40→21:42)
[2019-04-05] MEDS: FOLIC ACID 1 MG TABLET PO SCH (08:40)
[2019-04-05] MEDS: PANTOPRAZOLE 40 MG IV IVPush SCH (08:40)
[2019-04-05] MEDS: LOSARTAN 50MG TABLET PO SCH (08:40)
[2019-04-05] MEDS: THIAMINE 100MG TABLET PO SCH (08:40)
[2019-04-05] MEDS: MULTIVITAMIN 1 TABLET PO SCH (08:41)
[2019-04-05] MEDS: LORazepam 1MG TABLET PO PRN ×3 (08:45→16:53)
[2019-04-05] MEDS ORDERED: PROMETHAZINE 25 MG/ML, 1ML IM PRN (12:00)
[2019-04-05] MEDS ORDERED: ENALAPRILAT 1.25 MG/ML, 1ML ONE (12:54)
[2019-04-05 13:30] VITALS: BP 171/107
[2019-04-05 14:00] VITALS: BP 163/89
[2019-04-05 19:11] VITALS: BP 155/93
[2019-04-05] MEDS: TRAZODONE 50MG TABLET PO SCH (21:42)
[2019-04-06 00:59] VITALS: BP 162/103
[2019-04-06 04:38] VITALS: BP 168/98
[2019-04-06 05:06] LABS: ALBUMIN 2.9 g/dL (3.4-5.0); ANION GAP 5 mmol/L (5-15); CALCIUM 8.2 mg/dL (8.5-10.1); CHLORIDE 110 mmol/L (98-107)
[2019-04-06 05:09] LABS: ALANINE AMINOTRANSFERASE 62 U/L (12-78); ALKALINE PHOSPHATASE 64 U/L (45-117); BILIRUBIN,TOTAL 0.6 mg/dL (0.2-1.0); CREATININE 0.81 mg/dL (0.7-1.3); TOTAL PROTEIN 6.4 g/dL (6.4-8.2)
[2019-04-06 07:15] VITALS: BP 170/94
[2019-04-06] MEDS ORDERED: PANTOPROZOLE 40MG TABLET PO SCH (07:30)
[2019-04-06] MEDS: MULTIVITAMIN 1 TABLET PO SCH (07:56)
[2019-04-06] MEDS: LOSARTAN 50MG TABLET PO SCH (07:57)
[2019-04-06] MEDS: GABAPENTIN 300 MG CAPSULE PO SCH (07:57)
[2019-04-06] MEDS: THIAMINE 100MG TABLET PO SCH (07:57)
[2019-04-06] MEDS: FOLIC ACID 1 MG TABLET PO SCH (07:57)
[2019-04-06] MEDS ORDERED: HYDROCHLOROTHIAZIDE 12.5 MG CAPSULE PO SCH (09:00)
== END 2019-04-06 08:24 | disposition home or self-care (01) | DRG 897 ==
LOC: ED 03:41 → EDIP 07:35 → 4WST 13:50
PROVIDERS: ADMIT Internal Medicine; ATTEND Internal Medicine
DX: F10.239 Alcohol dependence with withdrawal, unspecified (principal); M48.54XA Collapsed vertebra, not elsewhere classified, thoracic region, initial encounter for fracture; K21.0 Gastro-esophageal reflux disease with esophagitis; F10.229 Alcohol dependence with intoxication, unspecified; E11.40 Type 2 diabetes mellitus with diabetic neuropathy, unspecified; I10 Essential (primary) hypertension; K22.70 Barrett's esophagus without dysplasia; K74.60 Unspecified cirrhosis of liver; Y90.8 Blood alcohol level of 240 mg/100 ml or more; Z66 Do not resuscitate; Z80.9 Family history of malignant neoplasm, unspecified; Z91.81 History of falling; Z90.49 Acquired absence of other specified parts of digestive tract; Z79.899 Other long term (current) drug therapy
CPT/HCPCS: 36415; 96361; 99285; J7042; 71045; 71275; 80048; 80053; 80307; 83690; 83735; 83880; 84100; 84484; 85025; 85379; 85610; 85730; 93005; 96374; 96375; 96376; G0378; J2405; J3411; Q0162; Q9967; C9113; J2060; J7030

== ENCOUNTER 2019-05-24 19:53 | Emergency (ER) | payer OTHER ==
[~2019-05-24] VITALS: Ht 185.4 cm; Wt 102.9 kg
[2019-05-25 00:06] VITALS: BP 107/70
== END 2019-05-25 01:29 | disposition home or self-care (01) ==
LOC: ED 21:37
DX: F10.120 Alcohol abuse with intoxication, uncomplicated (principal); Y90.0 Blood alcohol level of less than 20 mg/100 ml; E11.9 Type 2 diabetes mellitus without complications; I10 Essential (primary) hypertension; F32.9 Major depressive disorder, single episode, unspecified
CPT/HCPCS: 36415; 80053; 80307; 85025; 99283

== ENCOUNTER 2019-05-30 14:26 | Emergency (ER) | payer OTHER ==
[~2019-05-30] VITALS: Ht 190.5 cm; Wt 106.0 kg
[~2019-05-30 14:26] MED LIST changes: +METF500T12 PO; -METF500T9 PO
[2019-05-30 14:31] VITALS: BP 121/88
--- NOTE | 2019-05-30 14:45 | NUR ---
Pt BRANDIE LAY. Was found by cleaning crew at [employer] lying in the floor among many empty bottles of alcohol and a large amount of urine. Pt alert to verbal stimulation, oriented x 4. Eyes crusted. Pt states he wants to kill himself. Indicates a small area of dried scratches on the inside of his left wrist. Pt denies any pain. 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
--- NOTE | 2019-05-30 15:03 | NUR ---
BS REPORT FROM RASHARD METZGER, ASSUME CARE OF PT AT THIS TIME.
--- NOTE | 2019-05-30 15:04 | NUR ---
All pt belongings removed and locked in psych locker. Sitter in direct line of sight. Pt still attached to monitors at this for medical management. Pt yelling at this nurse for Ativan by name. Denies any other needs or concerns at this time.
[2019-05-30 15:16] LABS: ALANINE AMINOTRANSFERASE 34 U/L (12-78); ANION GAP 14 mmol/L (5-15); CALCIUM 8.4 mg/dL (8.5-10.1); CHLORIDE 97 mmol/L (98-107); CREATININE 1.03 mg/dL (0.7-1.3)
[2019-05-30 15:18] LABS: ALKALINE PHOSPHATASE 68 U/L (45-117); BILIRUBIN,TOTAL 1.2 mg/dL (0.2-1.0); TOTAL PROTEIN 8.6 g/dL (6.4-8.2)
[2019-05-30 15:25] LABS: MEAN CORPUSCULAR HEMOGLOBIN 27.3 pg (27.5-34.5); MEAN CORPUSCULAR HGB CONC 32.3 g/dL (33.2-36.2); MEAN CORPUSCULAR VOLUME 84.6 fL (81-97); MEAN PLATELET VOLUME 6.8 fL (7.4-10.4); PLATELET COUNT 202 x10^3/uL (130-400); RED BLOOD COUNT 5.53 x10^6/uL (4.38-5.82); RED CELL DISTRIBUTION WIDTH 17.6 % (9.4-14.8)
[2019-05-30 15:37] LABS: SALICYLATE LEVEL < 1.7 mg/dL (2.8-20.0)
[2019-05-30 15:52] LABS: BASOPHILS # (AUTO) 0.01 x10^3/uL (0-0.1); BASOPHILS % (AUTO) 0 % (0-1); EOSINOPHILS # (AUTO) 0.01 x10^3/uL (0-0.4); EOSINOPHILS % (AUTO) 0 % (1-7); LYMPHOCYTES # (AUTO) 2.63 x10^3/uL (1-3.4); LYMPHOCYTES % (AUTO) 49 % (22-44); MD SCAN; MONOCYTES # (AUTO) 0.43 x10^3/uL (0.2-0.8); MONOCYTES % (AUTO) 8 % (2-9); NEUTROPHILS # (AUTO) 2.27 x10^3/uL (1.8-6.8); NEUTROPHILS % (AUTO) 42 % (42-75)
--- NOTE | 2019-05-30 15:53 | NUR ---
PT CONTINUOUSLY TRYING TO GET OOB, STATING HE'S GOING TO LEAVE. PT WILL RETURN TO BED ONLY TO GET UP OOB AGAIN WITHIN 30 SECONDS. PT WITH MULTIPLE REQUESTS-CALL SISTER, PHONE, CLOTHING. PT ASKS FOR SISTER TO BE CALLED THEN WILL STATE "I DONT' WANT HER CALLED". ATTEMPT TO GET PT TO PROVIDE NUMBER FROM HIS CELL PHONE. PT THEN REFUSES AND STATES HE IS GOING TO CALL 911. MULTIPLE STAFF MEMBERS IN TO ASSIST AND POC EMPHASIZED MULTIPLE TIMES TO PT. PT CONTINUES TO REFUSE REDIRECTION AND GETS OOB WITH STEADY GAIT. Addendum: 05/30/19 at 1631 by SERINA CORRECTION-PT GETTING UP OOB WITH UNSTEADY GAIT. SECURITY CALLED, PT REFUSES TO COOPERATE AND GET BACK INTO BED, FLAYS ARMS AND MAKES KICKING GESTURES AT STAFF. PT PLACED IN FOUR POINT RESTRAINTS.
[2019-05-30] MEDS ORDERED: ZIPRASIDONE 20 MG INJ IM ONE ×2 (16:00→16:15)
[2019-05-30] MEDS ORDERED: LORazepam 2 MG/ML, 1ML IM ONE (16:00)
[2019-05-30] MEDS ORDERED: LORazepam 2 MG/ML, 1ML ONE (16:16)
--- NOTE | 2019-05-30 16:32 | NUR ---
PT MEDICATED PER ERP ORDER.
--- NOTE | 2019-05-30 17:42 | NUR ---
PT DROWSY, APPEARS MORE COOPERATIVE AT THIS TIME. SECURITY CALLED, RESTRAINTS REMOVED. EXPECTATIONS FOR BEHAVIOR AND POC COMMUNICATED TO PT. PT VERBALIZES AGREEMENT. SITTER TO REMAIN AT BS FOR CLOSE OBS.
--- NOTE | 2019-05-30 19:14 | NUR ---
REPORT RECEIVED FROM FLO METZGER.
--- NOTE | 2019-05-30 19:59 | NUR ---
PT REQUESTING ATIVAN NOW. EDMD NOTIFIED.
[2019-05-30] MEDS ORDERED: CHLORDIAZEPOXIDE 25 MG CAPSULE ONE (20:08)
--- NOTE | 2019-05-30 20:11 | NUR ---
PT MEDICATED PER EMAR. PT TOLERATED WELL.
[2019-05-30] MEDS ORDERED: CHLORDIAZEPOXIDE 25 MG CAPSULE PO ONE (20:30)
--- NOTE | 2019-05-30 20:40 | NUR ---
PT URINATING IN URINAL. URINE SAMPLE OBTAINED. UA SENT.
[2019-05-30 20:56] LABS: MICROSCOPIC INDICATED
[2019-05-30 20:58] LABS: CULTURE INDICATED? NO
[2019-05-30 21:07] LABS: AMPHETAMINE SCREEN, URINE Negative (Negative); BARBITURATE SCREEN, URINE Negative (Negative); BENZODIAZEPINE SCREEN, URINE Negative (Negative); CANNABINOID SCREEN, URINE Negative (Negative); COCAINE SCREEN, URINE Negative (Negative); METHADONE SCREEN, URINE Negative (Negative); OPIATE SCREEN, URINE Negative (Negative)
--- NOTE | 2019-05-30 21:15 | NUR ---
Patient given discharge instructions and they have confirmed that they understand the instructions. Patient ambulatory with steady gait.
[2019-06-04] MEDS ORDERED: CHLO10CA6 PO (08:13)
[2019-06-04] MEDS ORDERED: AMOX1TAB64 PO (08:17)
== END 2019-05-30 21:16 | disposition home or self-care (01) ==
LOC: ED 16:11
DX: F10.220 Alcohol dependence with intoxication, uncomplicated (principal); F33.9 Major depressive disorder, recurrent, unspecified; I10 Essential (primary) hypertension; E11.9 Type 2 diabetes mellitus without complications; Z90.49 Acquired absence of other specified parts of digestive tract
CPT/HCPCS: 36415; 80053; 80307; 81001; 85025; 96372; 99284; J2060; J3486

== ENCOUNTER 2019-05-31 15:21 | Inpatient (IN) | payer OTHER ==
[~2019-05-31] VITALS: Ht 188 cm; Wt 107.3 kg
[2019-06-04 08:10] VITALS: BP 146/91
== END 2019-06-04 11:53 | disposition home or self-care (01) | DRG 871 ==
LOC: ED 15:30 → EDIP 15:38 → ED 15:47 → CCU 16:38 → 3NE 06-01 15:50
PROVIDERS: ADMIT Internal Medicine; ATTEND Internal Medicine
PROC: 5A1935Z Respiratory Ventilation, Less than 24 Consecutive Hours (ICD-10-PCS; principal; 2019-05-31)
PROC: 0BH17EZ Insertion of Endotracheal Airway into Trachea, Via Natural or Artificial Opening (ICD-10-PCS; 2019-05-31)
PROC: 0T9B70Z Drainage of Bladder with Drainage Device, Via Natural or Artificial Opening (ICD-10-PCS; 2019-05-31)
DX: A41.9 Sepsis, unspecified organism (principal); G92 Toxic encephalopathy; J96.00 Acute respiratory failure, unspecified whether with hypoxia or hypercapnia; J69.0 Pneumonitis due to inhalation of food and vomit; N17.0 Acute kidney failure with tubular necrosis; E87.2 Acidosis; F10.230 Alcohol dependence with withdrawal, uncomplicated; F10.24 Alcohol dependence with alcohol-induced mood disorder; M48.54XA Collapsed vertebra, not elsewhere classified, thoracic region, initial encounter for fracture; Z99.11 Dependence on respirator [ventilator] status; F10.229 Alcohol dependence with intoxication, unspecified; G62.9 Polyneuropathy, unspecified; I11.9 Hypertensive heart disease without heart failure; F41.9 Anxiety disorder, unspecified; K21.9 Gastro-esophageal reflux disease without esophagitis; K22.70 Barrett's esophagus without dysplasia; K70.10 Alcoholic hepatitis without ascites; K74.60 Unspecified cirrhosis of liver; Z79.4 Long term (current) use of insulin; Z80.9 Family history of malignant neoplasm, unspecified; Z86.718 Personal history of other venous thrombosis and embolism; Z90.49 Acquired absence of other specified parts of digestive tract; Z88.8 Allergy status to other drugs, medicaments and biological substances
CPT/HCPCS: 31500; 36415; 36600; 73502; 99291; J3490; J7042; J7620; 70450; 71045; 80053; 80061; 80307; 81001; 82140; 82550; 82803; 82962; 83605; 83735; 83880; 84100; 84478; 84484; 85025; 85610; 87040; 87070; 87077; 87081; 87186; 87205; 93005; 93306; 94002; 94003; 94640; 96374; G0378; J0295; J1644; J2405; J2543; J2704; J3010; J3360; J3411; J3475; J3480; J0330; J0360; J1815; J2060; J7030; J7040

== ENCOUNTER 2019-06-12 04:01 | Emergency (ER) | payer OTHER ==
[~2019-06-12] VITALS: Ht 190.5 cm; Wt 104.0 kg
[2019-06-12 06:18] VITALS: BP 151/103
== END 2019-06-12 06:30 ==
LOC: ED 05:07
DX: I10 Essential (primary) hypertension (principal); E87.6 Hypokalemia; R51 Headache; K21.9 Gastro-esophageal reflux disease without esophagitis; E11.9 Type 2 diabetes mellitus without complications; F32.9 Major depressive disorder, single episode, unspecified; E11.21 Type 2 diabetes mellitus with diabetic nephropathy; E11.65 Type 2 diabetes mellitus with hyperglycemia
CPT/HCPCS: 36415; 80053; 85025; 93005; 99285

== ENCOUNTER 2019-12-03 15:28 | Emergency (ER) | payer OTHER ==
[~2019-12-03 15:28] MED LIST changes: -ACET-1757 PO; +ACET-2065 PO; +AMOX1TAB64 PO; +CHLO10CA6 PO; -IRBE150T25 PO; +IRBE150T9 PO; -MAGN400T7 PO; +MAGN400T9 PO; -OMEP20CA14 PO; +OMEP20CA20 PO; +OMEP40CA42 PO; -OMEP40CA6 PO; -TRAZ-137 PO; +TRAZ-175 PO
--- NOTE | 2019-12-03 15:43 | NUR ---
BRANDIE LAY FROM [facility]OT[facility] ROOM. PT FRIEND CALLED [facility] AFTER HE FOUND PT COMBATIVE, +ETOH. PT INCONTINENT OF URINE. PT JUST FLEW IN FROM [place] TO SEE SON FOR BIRTHDAY. PT NOTIFIED OF SON SUICIDE AT [employer]. PT TO SEE SON'S BODY AT [employer] TOMORROW AT 1100. PT JUST RELEASED FROM TREATMENT FACILITY IN [place]. PT ARRIVED IN RESTRAINTS FOR BEING COMBATIVE WITH POLICE AND [facility]. RESTRAINTS CONTINUED. MD ORDER RECEIVED. Q15 MIN CHECKS INITIATED. PT CONNECTED TO MONITORING. PT SLEEPING ON GURNEY. TAMIKON.
[2019-12-03 15:59] LABS: BASOPHILS # (AUTO) 0.03 x10^3/uL (0-0.1); BASOPHILS % (AUTO) 0 % (0-1); EOSINOPHILS # (AUTO) 0.05 x10^3/uL (0-0.4); EOSINOPHILS % (AUTO) 1 % (1-7); LYMPHOCYTES # (AUTO) 2.54 x10^3/uL (1-3.4); LYMPHOCYTES % (AUTO) 38 % (22-44); MD NO; MEAN CORPUSCULAR HEMOGLOBIN 27.9 pg (27.5-34.5); MEAN CORPUSCULAR HGB CONC 32.7 g/dL (33.2-36.2); MEAN CORPUSCULAR VOLUME 85.5 fL (81-97); MEAN PLATELET VOLUME 7.3 fL (7.4-10.4); MONOCYTES # (AUTO) 0.35 x10^3/uL (0.2-0.8); MONOCYTES % (AUTO) 5 % (2-9); NEUTROPHILS # (AUTO) 3.68 x10^3/uL (1.8-6.8); NEUTROPHILS % (AUTO) 55 % (42-75); PLATELET COUNT 274 x10^3/uL (130-400); RED BLOOD COUNT 5.73 x10^6/uL (4.38-5.82)
[2019-12-03 16:11] LABS: ALBUMIN 3.9 g/dL (3.4-5.0); ANION GAP 10 mmol/L (5-15); CALCIUM 8.9 mg/dL (8.5-10.1); CHLORIDE 107 mmol/L (98-107)
[2019-12-03 16:15] LABS: ALANINE AMINOTRANSFERASE 29 U/L (12-78); ALKALINE PHOSPHATASE 95 U/L (45-117); BILIRUBIN,TOTAL 0.4 mg/dL (0.2-1.0); CREATININE 1.07 mg/dL (0.7-1.3); TOTAL PROTEIN 8.9 g/dL (6.4-8.2)
[2019-12-03 16:18] LABS: SALICYLATE LEVEL < 1.7 mg/dL (2.8-20.0)
--- NOTE | 2019-12-03 16:50 | NUR ---
PT AWAKE AND YELLING TO REQUEST RESTRAINTS OFF. PT RESTRAINTS CONTINUE IN PLACE. FRIEND AT BEDSIDE.
[2019-12-03 18:10] VITALS: BP 162/78
--- NOTE | 2019-12-03 18:11 | NUR ---
PT ELOPED FROM HOSPITAL. FAMILY STATE THEY TRIED TO KEEP HIM IN ROOM, BUT HE WALKED OUT THE DOOR.
--- NOTE | 2019-12-03 18:11 | NUR ---
LATE ENTRY 1700. PT REMOVED FROM RESTRAINTS. FAMILY AT BEDSIDE.
== END 2019-12-03 18:18 | disposition left against medical advice (07) ==
LOC: ED 18:05
DX: F10.129 Alcohol abuse with intoxication, unspecified (principal); I10 Essential (primary) hypertension; E11.9 Type 2 diabetes mellitus without complications; K21.9 Gastro-esophageal reflux disease without esophagitis; Y90.9 Presence of alcohol in blood, level not specified
CPT/HCPCS: 36415; 80053; 80307; 85025; 99283